=== PATIENT | female | born 1945 | race Caucasian/White ===

== ENCOUNTER → 2017-05-19 10:30 | Outpatient (CLI) | payer MEDICARE, OTHER, SELFPAY ==
--- NOTE | 2017-05-19 10:34 | STE_ITS ---
Version 3 Reason For Study: SVT Stress Results Protocol: Benedict Protocol Maximum Predicted HR: 147 bpm Target HR: 125 bpm% Max imum Predicted HR: 80 % DurationHeart Rate Stage (mm:ss) (bpm) BPCom ment Baseline 63 110/70 Benedict Protocol Stage I 3:00 10 7 118/72Lightheaded, Mild Dyspnea, No Chest Pain Benedict Protocol Stage II 2:00 11 8 146/72Moderate to Severe Dyspnea Recovery 74 122/64 Suboptimal Post Images Stress Duration: 5:00 mm:ss Maximum Stress HR: 118 bpmM ETS: 7 Baseline Echocardiogram Findings The estimated ejection fraction is 65 %. Stress Echo Wall motion Data Resting WMIntermediate WMStress WM Resting Wall Motion Wall Motion Stress No regional wall motion No regional wall motion abnormalities noted. abnormalities noted. EKG Data Normal intervals are noted. The patient exercised according to the regular Benedict protocol for a total duration of 5:00. The maximum heart rate attained was 123 beats per minute. This was 83% of maximum predicted heart rate. The patient exercised into stage 2 of the Benedict protocol. During stress, there were no ST or T wave changes noted to suggest ischemia. No clinical angina was noted. Interpretation Summary The estimated ejection fraction is 65 %. Normal adequate treadmill echocardiogram. Negative for ischemia by EKG and echocardiographic criteria. No anginal symptoms noted. Rare ventricular couplet during exercise. Poor exercise capacity for age. Appropriate blood pressure response to exercise. Patient developed moderate to severe dyspnea at peak exercise which may be an anginal equivalent. Decreased sensitivity due to less than optimal echo windows. Final LVEF of 70%. Patient tolerated procedure well. No complication. Peak pulmonary artery pressures of 37 mm Hg at peak exercise. Doppler Measurements & Calculations TR max rossy: 267.8 cm/sec TR max P.8 mmHg Ordering Physician: Mumtaz Lang Referring Physician: Sal Alvarado MD Performed By: Sung, Yola, RDCS, RVT
== END ==
PROVIDERS: Family Provider Family Medicine; PCP Family Medicine; Visit Provider Internal Medicine Cardiovascular Disease
DX: I47.1 Supraventricular tachycardia (principal); I10 Essential (primary) hypertension; R06.09 Other forms of dyspnea
CPT/HCPCS: 93017; 93350

== ENCOUNTER → 2018-09-18 | Outpatient (CLI) | payer MEDICARE, OTHER, SELFPAY ==
[2016-04-13 22:51] VITALS: BMI 27.5
--- NOTE | 2018-09-18 15:48 | RAD_ITS ---
STUDY: X-RAY CHEST REASON FOR EXAM: Female, 72 years old. Pulmonary hypertension TECHNIQUE: PA and lateral chest COMPARISON: 04/13/2016 chest radiograph and CTA 04/14/2016 FINDINGS: The lungs are clear and expanded. There is no demonstrated pleural abnormality. There is mild borderline cardiomegaly unchanged. Slight prominence of the pulmonary arteries unchanged. Stable mild ectasia of the thoracic aorta. Normal visualized thoracic spine. Normal visualized ribs, clavicles, and shoulders. There is no demonstrated abnormality of the visualized soft tissue structures of the upper abdomen. RAD/Chest PA and Lateral IMPRESSION: Stable borderline mild cardiomegaly Mild prominence of the pulmonary arteries suspicious for pulmonary artery hypertension which could be correlated with cardiac echo Stable mild ectasia of the thoracic aorta Electronically Signed: Sarath Bah, at 16:09 EDT Tel , Service support ,
== END | disposition home or self-care (01) ==
PROVIDERS: Family Provider Family Medicine; PCP Family Medicine; Referring Provider Internal Medicine Pulmonary Disease; Visit Provider Internal Medicine Pulmonary Disease
DX: I27.20 Pulmonary hypertension, unspecified (principal)
CPT/HCPCS: 71046

== ENCOUNTER 2019-01-20 10:10 | Emergency (ER) | payer MEDICARE, OTHER, SELFPAY ==
[2019-01-20 10:10] VITALS: BP 147/86; PULSE 64; RESP 18; TEMP 36.1; O2SAT 97; BMI 30.6
--- NOTE | 2019-01-20 10:44 | RAD_ITS ---
STUDY: X-RAY - PELVIS AND LEFT HIP REASON FOR EXAM: Female, 73 years old. Status post fall. Left hip pain. TECHNIQUE: 3 views of the pelvis and hip. COMPARISON: None. FINDINGS: There is a non-specific bowel gas pattern. Normal visualized soft tissue structures. There is partial sacralization of the last lumbar vertebra on the right side. Normal bilateral iliac wings, sacroiliac joints and visualized sacrum. Normal bilateral superior and inferior pubic rami. Normal pubic symphysis. Normal bilateral ischial tuberosities. Normal visualized femoral head. Normal acetabulum. Normal hip joint. RAD/HIP, UNI W/ Pelvis 2-3 Views IMPRESSION: No demonstrated acute fracture. Electronically Signed: Arpit Rodrigez MD at 11:49 EST Tel , Service support ,
--- NOTE | 2019-01-20 10:44 | RAD_ITS ---
STUDY: X-RAY - LEFT SHOULDER REASON FOR EXAM: Female, 73 years old. Status post fall. Shoulder pain. TECHNIQUE: 3 view(s) of the shoulder. COMPARISON: None. FINDINGS: Normal glenohumeral articulation. Normal acromioclavicular joint. Normal acromion. Normal humeral head and visualized proximal humerus. The soft tissue structures are unremarkable. Normal visualized pulmonary apex. RAD/Shoulder min 2 Views IMPRESSION: No demonstrated acute fracture or dislocation. Electronically Signed: Arpit Rodrigez MD at 11:51 EST Tel , Service support ,
--- NOTE | 2019-01-20 10:44 | RAD_ITS ---
STUDY: X-RAY - LEFT ELBOW REASON FOR EXAM: Female, 73 years old. Status post fall. Left elbow pain. TECHNIQUE: 3 view(s) of the elbow. COMPARISON: None. FINDINGS: Normal visualized humerus, radius and ulna. Normal radiocapitellar and ulnotrochlear articulations. The soft tissue structures are unremarkable. RAD/Elbow min 3 Views IMPRESSION: Normal x-ray examination of the elbow. Electronically Signed: Arpit Rodrigez MD at 12:00 EST Tel , Service support ,
--- NOTE | 2019-01-20 10:45 | ED.DCSUM_ITS ---
History of Present Illness Informant: Patient Onset: Yesterday Narrative: 3-year-old female presents of her fall yesterday. Patient states that yesterday she was at [place] and slipped on ice and fell. Landed on her left side. Midst to pain to her left elbow, left shoulder, left hip. States that she has been able to walk since. Pain worse with walking and sitting on the toilet. Has taken Tylenol with minimal relief. Says she may have hit her head but if she did it was very lightly. Denies any loss of consciousness. Is on a 81 mg aspirin daily. Admitted to nausea yesterday. <Chriss Wu - Last Filed: 01/20/19 12:34> Context: Gradual Onset Current Severity: Mild Maximum Severity: Moderate Worsened by: Flexion of left hip <Aura Pate - Last Filed: 01/20/19 17:03> Chief Complaint: Fall Past Medical History Past Medical History: - - osteoporosis Surgical History: - - pyeloplasty, 3 c-s,hysterectemy, tonsils Smoking Status: Never smoker - Family History Maternal Family History: Reports: No pertinent history Paternal Family History: Reports: No pertinent history <Chriss Wu - Last Filed: 01/20/19 12:34> <Aura Pate - Last Filed: 01/20/19 17:03> - Allergies and Home Meds Allergies/Adverse Reactions: Allergies alendronate sodium Adverse Reaction (Verified 01/20/19 10:12) Nausea lisinopril Adverse Reaction (Verified 01/20/19 10:12) HEADACHES/ITCHY losartan [From Cozaar] Adverse Reaction (Verified 01/20/19 10:12) sensitivity pt took Losartan years ago; does not remember exact reaction Primary Care Physician: Igor Pickering MD [Primary Care Provider] - 3-5 Days Review of Systems General: Denies: Chills, Fever Eyes: Denies: Visual changes - bilaterally ENT: Denies: Bilateral ear pain Respiratory: Denies: Dyspnea, Cough Gastrointestinal: Denies: Abdominal pain Musculoskeletal: Reports: - - Left shoulder, elbow and hip pain Neurological: Denies: Headache, Weakness, Parasthesia <Chriss Wu - Last Filed: 01/20/19 12:34> Cardiovascular: Denies: Chest pain Genitourinary: Denies: Hematuria Musculoskeletal: Reports: Extremity Pain. Denies: Neck pain Hematologic: Denies: Easy bruising, Easy bleeding <Aura Pate - Last Filed: 01/20/19 17:03> Physical Exam Vital Signs/Narrative: Vital Signs Temp Pulse Resp BP Pulse Ox 01/20/19 10:10 96.9 F L 64 18 147/86 H 97 Inital Vital Signs reviewed: Yes General: Well nourished, Well developed Head: Normocephalic, Atraumatic, - - Normocephalic, atraumatic, no hemotympanum, raccoon eyes or paiz signs. Neck: - - Midline C-spine tenderness, or step offs does have slight tenderness to the left paraspinal muscles. Cardiovascular: Regular rate, Regular rhythm Respiratory: No distress, CTA bilaterally. Negative for: Chest tenderness Abdomen: Soft, Nontender, Nondistended Extremities: - - She has tenderness over her left shoulder. Able to lift shoulder to 90 degrees but is painful. Tenderness throughout anterior aspect of shoulder. No crepitance or step-offs. Patient does have tenderness over her olecranon process. Supination pronation intact. Distal pulses intact. N eurovascularly intact distally. Patient does have tenderness to her left medial groin. Negative logroll sign. Distal pulses intact. Motor and sensation intact. No bruising or ecchymosis appreciated Skin: Normal color, No rash Neurological: Alert, Oriented x3 <Chriss Wu - Last Filed: 01/20/19 12:34> Psychological: Normal affect <Aura Pate - Last Filed: 01/20/19 17:03> Diagnostic/Tx/Re-eval - Medical Decision Making Evaluated for fall yesterday. Imaging of her shoulder, elbow and hip obtained. Offered analgesics but declined. Of elbow, hip and shoulder were unremarkable. Patient instructed to continue Tylenol for his symptoms. Instructed to follow-up with primary care provider. Patient was in agreement the plan discharged home. <Chriss Wu - Last Filed: 01/20/19 12:34> Impressions Elbow X-Ray 01/20/19 10:44 IMPRESSION: Normal x-ray examination of the elbow. Electronically Signed: Arpit Rodrigez MD at 12:00 EST Tel , Service support , Hip/Pelvis X-Ray 01/20/19 10:44 IMPRESSION: No demonstrated acute fracture. Electronically Signed: Arpit Rodrigez MD at 11:49 EST Tel , Service support , Shoulder X-Ray 01/20/19 10:44 IMPRESSION: No demonstrated acute fracture or dislocation. Electronically Signed: Arpit Rodrigez MD at 11:51 EST Tel , Service support , 01/20/19 10:44 Elbow min 3 Views [RAD] Stat Shoulder min 2 Views [RAD] Stat Xray hip [HIP, UNI W/ Pelvis 2-3 Views] [RAD] Stat - Medical Decision Making Patient seen and evaluated with resident. Patient has slip and fall on ice yesterday. She laid on her left side. She is complaining of pain to the anterior left hip. Pain is worse with any kind of hip flexion. Patient sitting upright in bed no acute distress. Head neck examination was no sign of trauma. Heart regular rate and rhythm. Lung sounds are clear. Abdomen is soft and nontender. Lower extremity examination reveals mild tenderness of the anterior left hip. No tenderness of the greater trochanter. She has pain with hip flexion but is able to do so. She has strong distal pulses and normal sensation. X-rays are obtained and reviewed. There is no evidence of acute fracture. Patient is to follow-up with her primary care physician. <Aura Pate - Last Filed: 01/20/19 17:03> ED Disposition <Chriss Wu - Last Filed: 01/20/19 12:34> <Aura Pate - Last Filed: 01/20/19 17:03> - Plan for ED Patient: Disposition: Home or Assisted Living Diagnosis: Hip pain, Fall, Shoulder contusion Instructions: FALL, Mechanical Referrals: Igor Pickering MD [Primary Care Provider] - 3-5 Days
[2019-01-20 12:46] VITALS: BP 131/71; PULSE 82; RESP 19; O2SAT 97
--- NOTE | 2019-01-20 12:46 | ED.RN ---
THIS NURSE REVIEWED D/C INSTRUCTIONS WITH PT AND VISITORS. PT VERBALIZED UNDERSTANDING OF INSTRUCTIONS. PT DENIES FURTHER NEEDS OR QUESTIONS AT THIS TIME
== END 2019-01-20 12:47 | disposition home or self-care (01) ==
PROVIDERS: Emergency Provider Emergency Medicine; Family Provider Family Medicine; PCP Family Medicine
DX: S40.012A Contusion of left shoulder, initial encounter (principal); M25.552 Pain in left hip; M25.522 Pain in left elbow; W00.0XXA Fall on same level due to ice and snow, initial encounter; Y93.9 Activity, unspecified; Y92.9 Unspecified place or not applicable; M81.0 Age-related osteoporosis without current pathological fracture; Z79.82 Long term (current) use of aspirin; Z79.899 Other long term (current) drug therapy
CPT/HCPCS: 73030; 73080; 73502; 99282

== ENCOUNTER 2019-09-12 15:54 | Emergency (ER) | payer MEDICARE, OTHER, SELFPAY ==
[2019-09-04 09:20] VITALS: BMI 31.1
[2019-09-12 15:55] VITALS: BP 183/87; PULSE 74; RESP 16; TEMP 36.5; O2SAT 97; BMI 29.2
--- NOTE | 2019-09-12 16:23 | ED.DCSUM_ITS ---
History of Present Illness Chief Complaint: Nausea/Vomiting/Diarrhea Informant: Patient, Family - Abdominal Pain/Flank Pain Onset: Yesterday Context: Gradual Onset Timing: Continuous Quality: Cramping - intermittent, worse w/ eating Location: Diffuse Current Severity: Mild Maximum Severity: Moderate Worsened by: Food Relieved by: Nothing - Nausea/Vomiting/Emesis GI Symptom: Nausea, Vomiting Quality: Nonbilious. Negative for: Blood streaks, Coffee ground, Hematemesis - Diarrhea/Melena/Hematochezia GI Symptom: Diarrhea. Negative for: Melena, Hematochezia Onset: Yesterday Stool Quality: Loose, Watery - at times. Negative for: Black, Maroon, RITA per rectum Episodes: 10 Associated Symptoms: Negative for: Dysuria, Frequency, Hematuria, Urgency Narrative: Patient malaised along with this, lightheaded with standing at times, no syncope. Intermittent cramping that is worse with eating. No history of GERD. No fevers or chills. No recent travel or camping. She drinks city water not well water. She has had no recent antibiotics for anything or new medications, she takes no prescriptions at home on a daily basis. No known sick contacts with the symptoms. She currently is on a fluid restriction because of hyponatremia at 125 about a week ago according to her, and her doctor sent her in for testing and fluids to have her sodium and her exam checked. - Past Medical History (1) Anemia Status: Chronic (2) Pulmonary hypertension Status: Chronic (3) SVT (supraventricular tachycardia) Status: Chronic (4) Asthma Status: Chronic (5) Essential hypertension Status: Chronic (6) FELIPE on CPAP Status: Chronic Past Medical History - Allergies and Home Meds Allergies/Adverse Reactions: Allergies alendronate sodium Adverse Reaction (Verified 09/12/19 15:57) Nausea lisinopril Adverse Reaction (Verified 09/12/19 15:57) HEADACHES/ITCHY losartan [From Cozaar] Adverse Reaction (Verified 09/12/19 15:57) sensitivity pt took Losartan years ago; does not remember exact reaction Primary Care Physician: Igor Pickering MD [Primary Care Provider] - Surgical History: - - pyeloplasty, 3 c-s,hysterectemy, tonsils Smoking Status: Never smoker - Family History Maternal Family History: Family History (Last Reviewed 07/01/20 @ 11:02 by Rosibel Cardona) Mother Diabetes CVA (cerebral vascular accident) Alzheimer disease Grandfather CVA (cerebral vascular accident) Sister Cancer Grandmother Cancer Family History: Reports: No pertinent history Paternal Family History: Family History (Last Reviewed 09/04/19 @ 11:02 by Rosibel Cardona) Mother Diabetes CVA (cerebral vascular accident) Alzheimer disease Grandfather CVA (cerebral vascular accident) Sister Cancer Grandmother Cancer Family History: Reports: No pertinent history Review of Systems General: Reports: Malaise. Denies: Chills, Fever, Sweats Eyes: Denies: Visual changes - bilaterally, Diplopia ENT: Denies: Bilateral ear pain, Rhinorrhea, Sore throat Cardiovascular: Denies: Chest pain, Palpitations Respiratory: Denies: Dyspnea, Cough, Dyspnea on exertion Gastrointestinal: Reports: Abdominal pain, Nausea, Vomiting, Diarrhea. Denies: Melena, Hematochezia Genitourinary: Denies: Dysuria, Hematuria, Frequency Musculoskeletal: Denies: Back pain, Swelling, Extremity Pain Skin: Denies: Rash, Wounds Neurological: Denies: Headache, Weakness, Numbness Physical Exam Vital Signs/Narrative: Vital Signs Temp Pulse Resp BP Pulse Ox 09/12/19 15:55 97.7 F L 74 16 183/87 H 97 Inital Vital Signs reviewed: Yes General: Well nourished, Well developed, No Acute Distress Head: Normocephalic, Atraumatic Eyes: Perrl, EOMI ENT: Moist mucous membranes, No rhinorrhea Neck: Supple, Nontender Cardiovascular: Regular rate, Regular rhythm, No murmurs. Negative for: Tachycardia Respiratory: No distress, CTA bilaterally, Chest nontender Abdomen: Soft, Nontender, Nondistended, Normal bowel sounds, No masses Back: Nontender, Normal Inspection. Negative for: CVA tenderness Extremities: Nontender, No edema. Negative for: Calf Tenderness Skin: Normal color, No rash, No Trauma Neurological: Alert, Oriented x3, Cranial nerves II-XII grossly intact, Normal Strength, Normal Sensation Psychological: Normal affect, Normal Mood Diagnostic/Tx/Re-eval Laboratory Results 09/12/19 09/12/19 16:47 16:47 WBC 5.6 RBC 4.02 L Hgb 12.8 Hct 36.8 L MCV 91.5 MCH 31.8 MCHC 34.8 RDW Std Deviation 47.1 H RDW Coeff of Juvencio 13.9 Plt Count 221 MPV 10.3 Neut % (Auto) Not Reportable Absolute Neuts (auto) 4.5 Absolute Lymphs (auto) 0.67 L Total Counted 100 Neutrophils % (Manual) 77 H Band Neutrophils % 3 Lymphocytes % (Manual) 12 L Monocytes % (Manual) 4 Metamyelocytes % 2 H Myelocytes % 2 H Diff Path Review May foll Platelet Estimate ADEQUATE RBC Morphology N CHROM Anisocytosis RARE Macrocytosis RARE Sodium 129 L Potassium 4.3 Chloride 98 Carbon Dioxide 24.0 Anion Gap 7 BUN 11 Creatinine 0.86 Estim Creat Clear Calc 44.70 Est GFR (MDRD) Af Amer 82 Est GFR (MDRD) Non-Af 68 BUN/Creatinine Ratio 12.7 Glucose 108 H Calcium 9.7 Total Bilirubin 0.70 AST 25 ALT 25 Alkaline Phosphatase 102 Total Protein 8.1 Albumin 4.1 Globulin 4.0 Albumin/Globulin Ratio 1.0 - Medical Decision Making Patient was given some gentle IV fluids while we waited for labs, they reassuringly show a sodium that is higher than she is used to at 129. She feels well, I offered admission but she states that she is fine to go home. I reviewed the CBC above, shows a low normal white blood count of 5.6 but there are immature cells. I discussed the possibilities with her, including the infection that she may or may not have causing her vomiting and diarrhea, or demargination for some other reason, or they could be some indicator that she could have a myelodysplastic syndrome or something similar. This will need to be followed up on, after her symptoms hopefully resolve soon. I am calling whoever is on-call for Dr. Pickering to discuss with them, and the patient can follow-up as an outpatient. She and family are comfortable with this overall plan and understand all that. ED Disposition - Plan for ED Patient: Disposition: Home or Assisted Living Diagnosis: Nausea, vomiting and diarrhea, Chronic hyponatremia Instructions: ED Food Poison Or Gastroenteritis, ED Diet for Vomiting or Diarrhea Adult Prescriptions: Ondansetron [Zofran Odt] 8 mg PO Q8H PRN PRN #10 tab PRN Reason: Nausea Transmission Status: Pending to [id number] Referrals: Igor Pickering MD [Primary Care Provider] - 3-5 Days if not improving
[2019-09-12] MEDS: Ondansetron 4 MG/2 ML Vial IV (16:53)
[2019-09-12] MEDS: 0.9% Normal Saline 1,000 ML 125 ML IV (16:53)
[2019-09-12 17:13] LABS: Hematocrit 36.8 % (37-47); Hemoglobin 12.8 g/dL (12.0-15.0); Mean Corp Hgb Conc 34.8 g/dL (32-36); Mean Corpuscular Hgb 31.8 pg (27.0-32.0); Mean Corpuscular Volume 91.5 fL (81-99); Mean Platelet Vol. 10.3 fl (6.2-12.0); POSITIVE COUNT YES; POSITIVE MORPHOLOGY YES; Platelet Count 221 K/mm3 (150-450); RBC Distribution Width CV 13.9 % (11.6-14.6); RBC Distribution Width SD 47.1 fl (35.1-43.9); Red Blood Count 4.02 M/mm3 (4.2-5.4); White Blood Count 5.6 K/mm3 (4.4-11.0)
[2019-09-12 17:33] LABS: AST(SGOT) 25 U/L (15-37); Alanine Aminotransfer ALT/SGPT 25 U/L (13-56); Albumin, Serum 4.1 g/dL (3.2-5.0); Alkaline Phosphatase 102 U/L (45-117); Anion Gap 7 (5-15); BUN 11 mg/dL (7-18); BUN/Creat Ratio 12.7 RATIO (10-20); Calcium,Total 9.7 mg/dL (8.5-10.1); Chloride 98 mmol/L (98-107); Creatinine, Serum 0.86 mg/dL (0.55-1.02); EST Glomerular Filtration Rate 68 mL/min (>60); Est Glom Filt Rate - Afr Amer 82 mL/min (>60); Glucose 108 mg/dL (74-106); Potassium 4.3 mmol/L (3.5-5.1); Protein, Total 8.1 g/dL (6.4-8.2); Sodium Level 129 mmol/L (136-145)
[2019-09-12 17:44] LABS: Differential Indicated MANUAL DIFF
[2019-09-12 17:50] LABS: Lymphocyte 12 % (19-41); Metamyelocyte 2 % (0-1); Monocyte 4 % (0-10); Myelocyte 2 (0-0); Neutrophil-Band 3 % (0-5); Neutrophil-Segmented 77 % (47-70); Total Cells Counted 100 (MANUAL DIFF)
[2019-09-12 17:51] LABS: Platelet Estimate ADEQUATE (ADEQ)
[2019-09-12 17:52] LABS: Anisocytosis RARE; Macrocytosis RARE; Red Cell Morphology N CHROM NORMAL (NORM C&C)
[2019-09-12 17:53] LABS: Absolute Lymphocyte Count 0.67 X10^3/uL (0.83-4.51); Absolute Neutrophil Count 4.5 X10^3/uL (2.0-7.7)
[2019-09-12 18:49] VITALS: BP 167/89; PULSE 81; RESP 16; O2SAT 99
[2019-09-16 09:55] LABS: Pathologist Review Reviewed
== END 2019-09-12 18:51 | disposition home or self-care (01) ==
PROVIDERS: Emergency Provider Emergency Medicine; PCP Family Medicine
DX: R11.2 Nausea with vomiting, unspecified (principal); R19.7 Diarrhea, unspecified; E87.1 Hypo-osmolality and hyponatremia; R10.9 Unspecified abdominal pain; I27.20 Pulmonary hypertension, unspecified; I47.1 Supraventricular tachycardia; I10 Essential (primary) hypertension; J45.909 Unspecified asthma, uncomplicated; G47.33 Obstructive sleep apnea (adult) (pediatric); Z86.2 Personal history of diseases of the blood and blood-forming organs and certain disorders involving the immune mechanism; Z79.82 Long term (current) use of aspirin; Z79.899 Other long term (current) drug therapy
CPT/HCPCS: 80053; 85025; 96361; 96374; 99283; J7030; A4216; J2405

== ENCOUNTER → 2020-01-14 14:00 | Outpatient (CLI) | payer MEDICARE, OTHER, SELFPAY ==
[2020-01-14 14:59] LABS: Mucous, Urine 0 SEEN /hpf (<or=2+)
[2020-01-14 15:14] LABS: Color, Urine Yellow (Yellow); Glucose, Dipstick Normal (Normal); Ketone-Dipstick Negative (Negative); Leukocyte Esterase-Dipstick 500 /ul (Negative); Nitrite-Dipstick Negative (Negative); Occult Blood-Urine 10 /ul (Negative); Protein-Dipstick Negative (Negative); Urine Bilirubin Dipstick Negative (Negative); Urine Clarity Sl. Cloudy (Clear); Urine Urobilinogen Normal (Normal)
[2020-01-14 15:23] LABS: Bacteria 1+ /hpf (None Seen); Red Blood Cells-Urine 0-5 SEEN /hpf (0-5); Squamous Epithelial Cells - UA 0-5 SEEN /hpf (5-10); White Blood Cells 25-50 SEEN /hpf (0-5)
== END ==
PROVIDERS: PCP Family Medicine; Referring Provider Nurse Practitioner Adult Health; Visit Provider Nurse Practitioner Adult Health
DX: R31.29 Other microscopic hematuria (principal)
CPT/HCPCS: 81001

== ENCOUNTER 2020-05-29 15:10 | Outpatient (RCR) | payer MEDICARE, OTHER, SELFPAY | END 2020-08-11 23:59 | LOC: IMMUN 15:10 | PROVIDERS: PCP Family Medicine; Visit Provider Family Medicine | DX: Z23 Encounter for immunization (principal) | CPT/HCPCS: 0001A; 0002A; 91300 ==

== ENCOUNTER → 2021-11-16 | Outpatient (CLI) | payer MEDICARE, OTHER, SELFPAY ==
--- NOTE | 2021-11-16 08:44 | STRESSREP_ITS ---
Stress Test Report Date: 11-16-2021 Procedure: Exercise tolerance test/imaging study Indications: Chest pain; syncope; PSVT Consent: Per the patient Procedure: The patient exercised on a Benedict protocol for 3 minutes and 31 seconds completing Stage I and 31 seconds of Stage II achieving a peak heart rate of 141 bpm (99% predicted maximal heart rate) with a peak blood pressure 194/80 mmHg and a peak MET capacity of 5 METs. The baseline ECG demonstrated normal sinus rhythm; poor R wave progression. The peak exercise ECG demonstrated somatic/motion artifact with no obvious ECG changes. There were no cardiac dysrhythmias pretest, during exercise, or recovery. The functional capacity was considered fair. There was no complaint of chest discomfort during exercise or recovery. The examination was discontinued secondary to dyspnea, leg fatigue, weakness. Impression: 1. Technically adequate (percent predicted maximal heart rate greater than 85%) exercise tolerance test 2. Peak exercise ECG with somatic/motion artifact with no obvious ECG changes 3. There were no cardiac dysrhythmias pretest, during exercise, or recovery 4. Nuclear images pending Myocardial perfusion imaging study: Technique: The patient was injected with 11.8 mCi of technetium 99m Cardiolite and subsequently rest SPECT Cardiolite nuclear imaging was obtained in the horizontal long, vertical long, and short axis views. The patient exercised on a Benedict protocol for 3 minutes and 31 seconds completing Stage I and 31 seconds of Stage II achieving a peak heart rate of 141 bpm (99% predicted maximal heart rate) with a peak blood pressure 194/80 mmHg and a peak MET capacity of 5 METs. The patient was injected with 34.1 mCi of technetium 99m Cardiolite and subsequ ently stress SPECT Cardiolite nuclear imaging was obtained in the horizontal long, vertical long, and short axis views. A gated Cardiolite study at peak stress was obtained. Interpretation: Rest and stress SPECT Cardiolite nuclear imaging status post realignment, normalization, and attenuation correction, demonstrates the appearance of relative uniform tracer uptake and myocardial perfusion appearing within normal limits. There is end systolic thickening and brightening. The gated Cardiolite study demonstrates myocardial thickening and inward wall motion. The reported LVEF is 81%. Impression: 1. Rest and stress SPECT Cardiolite nuclear imaging demonstrate relative uniform tracer uptake and myocardial perfusion appearing within normal limits. 2. The gated Cardiolite study reports an LVEF of 81%. This note was generated with Dragon dictation software. It may contain incorrect words, spelling, and punctuation that were not noted in checking the note before signing.
== END | disposition home or self-care (01) ==
LOC: CVS 06:37
PROVIDERS: PCP Family Medicine; Referring Provider Internal Medicine Cardiovascular Disease; Visit Provider Internal Medicine Cardiovascular Disease
DX: R07.9 Chest pain, unspecified (principal)
CPT/HCPCS: 78452; 93017; A9500; A4216

== ENCOUNTER 2022-01-27 16:15 | Emergency (ER) | payer MEDICARE, OTHER, SELFPAY ==
[2022-01-27 16:16] VITALS: BP 145/71; PULSE 76; RESP 16; TEMP 36.8; O2SAT 100; BMI 32.9
--- NOTE | 2022-01-27 16:26 | CT_ITS ---
INDICATION: Trauma/FALL EXAMINATION: CT BRAIN - CT Head or Brain W/O Contrast Injection TECHNIQUE: Multiple axial images were obtained of the head without intravenous contrast. A radiation dose optimization technique was used for this scan. IV Contrast dosage and agent: None. RADIATION DOSAGE (If Supplied By Facility): CTDIvol = ( 44.99 ) mGy, DLP = ( 812.98 ) mGycm COMPARISON: 04/13/1969 FINDINGS: HEMISPHERES: 1. The cerebral parenchyma, ventricular system, subarachnoid spaces have normal configuration and density. There is a normal gyral pattern. There is normal johnson/white differentiation. No midline shift.. 2. Minimal involutional changes and stable chronic microvascular deep white matter changes. 3. No intraparenchymal mass, hemorrhage, or acute territorial infarct. CEREBELLUM - BRAINSTEM: The cerebellum, brainstem, basilar and suprasellar cisterns have normal appearance. No Chiari malformation. PITUITARY: Infundibulum and pituitary have normal configuration. Midline structures appear normal. CSF SPACES: Appropriate for age. No hydrocephalus. Basal cisterns are patent. VESSELS: 1. Moderate to extensive calcifications involving the cavernous carotid vessels bilaterally. 2. No hyperdense vascular signs noted.. ORBITS AND PARANASAL SINUSES: 1. Normal appearance of the bony orbits. Normal appearance of the globes and retrobulbar soft tissues.. 2. Paranasal sinuses are clear. BONY ELEMENTS: Bony elements of the cranial vault, facial skeleton and skull base have normal appearance. SCALP AND SOFT TISSUES: Normal appearance of the soft tissues of the scalp and the visualized face OTHER: None ASPECTS Score for Acute Strokes: 10 CT/Brain/Head without Contrast IMPRESSION: 1. Stable exam 2. No intracranial evidence of acute traumatic injury. 3. Mild chronic microvascular deep white matter disease and minimal involutional change. 4. No intracranial mass, hemorrhage or acute territorial infarct. 5. No cranial facial fracture. 6. No radiographically significant sinus disease.. Electronically Signed: Zay Calero MD at 17:17 EST ,
--- NOTE | 2022-01-27 16:26 | CT_ITS ---
INDICATION: pain/FALL EXAMINATION: CT CERVICAL SPINE - CT Spine Cervical W/O Contrast Injection TECHNIQUE: Helically acquired images were obtained of the cervical spine. 2D reformatted images were reviewed. A radiation dose optimization technique was used for this scan. IV Contrast dosage and agent: None. COMPARISON: None. FINDINGS: VERTEBRAE: No fracture or traumatic subluxation. No discrete lytic or blastic abnormality. Normal alignment. Normal craniocervical junction and cervicothoracic junction. Normal appearance of the odontoid process. DISCS and SPINAL CANAL: Disc spaces are maintained without evidence of disc herniation or canal stenosis. Multilevel facet arthropathy throughout the cervical spine visualized neural foramina however have normal appearance. No critical canal stenosis. NECK SOFT TISSUES: No prevertebral soft tissue swelling. There is no cervical adenopathy. LUNG APICES: Clear. CT/Spine Cervical without Contras IMPRESSION: 1. No evidence of acute cervical spinal fracture or spondylolisthesis. No acutely acquired canal stenosis. 2. Multilevel facet arthrosis, no evidence however of foraminal narrowing. Electronically Signed: Zay Calero MD at 17:19 EST ,
--- NOTE | 2022-01-27 16:28 | EDS_ITS ---
HPI History of Present Illness Chief Complaint: Head Injury Associated Symptoms Length of loss of consciousness: 0 Narrative Narrative: 76-year-old female who denies significant past medical history presents with mechanical fall and injury to her head and neck. She states that she was walking outside in the garage and tripped over the concrete and fell forward. She did not brace her fall with her hands. Her glasses cut the bridge of her nose and she sustained a laceration to her left forehead. She has some diffuse neck pain. There is no reported loss of consciousness. She takes a baby aspirin but no other blood thinners. This happened an hour prior to arrival. 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 Additionally, she states that her family had to convince her to come to the emergency department. She denies any pain on the bridge of her nose but does have pain on her left forehead where her laceration is. [facility] Medical History (Updated 01/27/22 @ 18:27 by Juvenal Hernandez MD) Anemia Asthma Diverticulosis Essential hypertension Orthostatic hypotension FELIPE on CPAP Pulmonary hypertension SVT (supraventricular tachycardia) Syncope Home Medications albuterol sulfate 90 mcg/actuation aerosol inhaler 2 puff inhalation Q6H PRN PRN Shortness Of Breath 01/27/15 [History Last Taken Unknown] aspirin 81 mg chewable tablet 81 mg PO DAILY@0800 01/27/15 [History Last Taken 03/24/16] calcium carbonate 600 mg calcium (1,500 mg) tablet 600 mg PO BID 01/27/15 [History Last Taken 04/12/16] cholecalciferol (vitamin D3) 25 mcg (1,000 unit) tablet 3,000 unit PO DAILY 01/27/15 [History Last Taken 04/12/16] polyvinyl alcohol-povidone (PF) 1.4 %-0.6 % eye drops in a dropperette 1 ea EACH EYE DAILY PRN dry eyes 01/27/15 [History Last Taken Unknown] acetaminophen 325 mg tablet 650 mg PO Q6H PRN PRN Mild Pain (scale 0-3)/T>100.7 #0 tabs 04/14/16 [Rx Last Taken Unknown] docusate sodium 100 mg capsule 100 mg PO BID PRN Constipation 01/20/19 [History Last Taken Unknown] multivitamin-ferrous fumarate-folic acid 18 mg-400 mcg tablet 1 ea PO DAILY 01/20/19 [History Last Taken Unknown] amlodipine 5 mg tablet 2.5 mg PO DAILY 03/05/19 [History Last Taken Unknown] atenolol 50 mg tablet 50 mg PO DAILY 03/05/19 [History Last Taken Unknown] venlafaxine 150 mg tablet,extended release 24 hr 150 mg PO DAILY 09/15/21 [History Last Taken Unknown] Allergy/AdvReac Type Severity Reaction Status Date / Time alendronate sodium AdvReac Nausea Verified 01/27/22 16:16 lisinopril AdvReac HEADACHES/I Verified 01/27/22 16:16 TCHY losartan [From Cozaar] AdvReac sensitivity Verified 01/27/22 16:16 Family History Mother Diabetes CVA (cerebral vascular accident) Alzheimer disease Grandfather CVA (cerebral vascular accident) Sister Cancer Breast Grandmother Cancer Ovarian Surgical History History of appendectomy History of bilateral cataract extraction History of breast biopsy History of section History of tonsillectomy History of total hysterectomy pyeloplasty Social History Smoking Status: Never smoker alcohol intake: never substance use type: does not use caffeine: No ROS ROS ED ROS Narrative Constitutional: No fever, no chills. HEENT: No sore throat. Minimal diffuse neck pain. No loss of vision. No rhinorrhea. Laceration/abrasion to left forehead, laceration to bridge of nose, abrasion to left chin Cardiovascular: No chest pain. No palpitations. No pedal edema. Respiratory: No cough, no shortness of breath. Abdominal: No abdominal pain. No nausea. No vomiting. Genitourinary: No dysuria. No hematuria. Musculoskeletal: No myalgias. No arthralgias. Neurologic: No headaches. No dizziness. No lightheadedness. No loss of consciousness. Skin: No rash. No change in color. Psychiatric: No depression. No anxiety. EXAM Physical Exam Narrative Exam Narrative: Afebrile. Vital signs noted. HEENT: Normocephalic. Positive bandaged left forehead laceration above left eyebrow PERRL, EOMI. Neck soft and supple. No point tenderness or step off. Full range of motion. Positive laceration with bandage to bridge of nose. Small abrasion to left cheek. Cardiovascular: Regular rate and rhythm. No murmurs, rubs, or gallops appreciated. Respiratory: No tachypnea. Lungs clear to auscultation bilaterally. Gastrointestinal: Abdomen soft, nontender, with normoactive bowel sounds. No rebound or guarding. Neurological: Awake. Alert. Nonfocal, nonlateralizing. Skin: No rash. Normal color. No pallor. Musculoskeletal: No pedal edema. Full range of motion extremities. Minimal tenderness to palpation left hand. Able to oppose thumb. Const Vital Signs: 01/27/22 16:16 01/27/22 16:20 01/27/22 17:35 Temperature 98.2 F Temperature Source Temporal Pulse Rate 76 Respiratory Rate 16 Respiratory Effort Normal Non-Labored Normal Non-Labored Respiratory Depth Normal Respiratory Pattern Normal Blood Pressure 145/71 H Blood Pressure Mean 95 Pulse Ox 100 Oxygen Delivery Method Room Air Room Air PROC Procedures Lacerations Left forehead laceration: Length: 0.43 in Depth: Skin Shape: Linear Prep: Sterile Conditions Laceration repair: Lidocaine (1%) and Local Number of Sutures/Jay: 3 Suture Information: Ethilon, Simple and 5-0 Comment: Patient tolerated procedure well MDM MDM MDM Narrative Medical decision making narrative: As the patient is unsure of her last tetanus immunization, she will get a Boostrix shot. Her wounds will be cleansed for further evaluation to see if they are amenable to suturing or some other type of closure. I do not feel x- ray of the left hand is indicated. However, given her age CT of the brain and C-spine were obtained. CT of the brain shows no intracranial hemorrhage, no cranial facial fracture. CT of the C-spine shows degenerative changes, but no acute fracture. Her wounds were cleansed. She was given a tetanus immunization. See procedure note for details on closure of the left forehead laceration. She will have the sutures removed in 5 days. She will take [id number] analgesics. I feel she be discharged safely home. Return instructions reviewed. Disposition is discharged home in improved and stable condition. Radiography Diagnostic Testing: Clinical Impression(s) from Imaging Studies Brain CT 01/27/22 16:26 IMPRESSION: 1. Stable exam 2. No intracranial evidence of acute traumatic injury. 3. Mild chronic microvascular deep white matter disease and minimal involutional change. 4. No intracranial mass, hemorrhage or acute territorial infarct. 5. No cranial facial fracture. 6. No radiographically significant sinus disease.. Electronically Signed: Zay Calero MD at 17:17 EST , Cervical Spine CT 01/27/22 16:26 IMPRESSION: 1. No evidence of acute cervical spinal fracture or spondylolisthesis. No acutely acquired canal stenosis. 2. Multilevel facet arthrosis, no evidence however of foraminal narrowing. Electronically Signed: Zay Calero MD at 17:19 EST , Discharge Plan Triage Chief Complaint: Head Injury ED Provider: Juvenal Hernandez Dx/Rx/DC Orders Clinical Impression: Fall, Closed head injury, Forehead laceration, Abrasion of nose, Abrasion of chin, Cervical strain Instructions: ED Mechanical Fall, ED Head Injury (Adult), ED Laceration: All Closures, ED Neck Sprain or Strain Prescriptions: No Action amlodipine 5 mg tablet 2.5 mg PO DAILY atenolol 50 mg tablet 50 mg PO DAILY venlafaxine 150 mg tablet extended release 24hr 150 mg PO DAILY calcium carbonate 600 MG tablet 600 mg PO BID Label Comments: SUPPLEMENT aspirin 81 MG tablet,chewable 81 mg PO DAILY@0800 Label Comments: heart health - has not restarted since OR last week albuterol sulfate 1 PUFF inhaler 2 puff inhalation Q6H PRN PRN (Reason: Shortness Of Breath) Label Comments: breathing polyvinyl alcohol-povidon(PF) 1 EACH dropperette 1 ea EACH EYE DAILY PRN (Reason: dry eyes) Label Comments: DRY EYES cholecalciferol (vitamin D3) 1,000 UNIT tablet 3,000 unit PO DAILY Label Comments: supplement acetaminophen 325 MG tablet 650 mg PO Q6H PRN PRN (Reason: Mild Pain (scale 0-3)/T>100.7) Qty: 0 0RF [id number]-[id number] acid 1 EACH tablet 1 ea PO DAILY docusate sodium 100 MG capsule 100 mg PO BID PRN (Reason: Constipation) Label Comments: prevent constipation Primary Care Provider: Igor Pickering Referrals: Igor Pickering MD [Primary Care Provider] - 5 Days for suture removal Activity Restrictions/Additional Instructions: Have the 3 sutures in your left forehead removed in 5 days Disposition Disposition: Home, Self Care
[2022-01-27] MEDS: Diphth,Pertuss(Acell),Tet Vac 0.5 ML Vial IM (17:29)
[2022-01-27] MEDS: Lidocaine 1% (20 ml mdv) 20 ML Vial INFILT (18:35)
== END 2022-01-27 18:40 | disposition home or self-care (01) ==
PROVIDERS: Emergency Provider Emergency Medicine; PCP Family Medicine; Visit Provider Emergency Medicine
DX: S01.81XA Laceration without foreign body of other part of head, initial encounter (principal); S16.1XXA Strain of muscle, fascia and tendon at neck level, initial encounter; I10 Essential (primary) hypertension; W01.0XXA Fall on same level from slipping, tripping and stumbling without subsequent striking against object, initial encounter; Z23 Encounter for immunization
CPT/HCPCS: 12011; 70450; 72125; 90715; 96372; 99283

== ENCOUNTER 2024-01-19 21:15 | Inpatient (IN) | payer MEDICARE, OTHER, SELFPAY ==
[2024-01-19 21:16] VITALS: BP 114/81; PULSE 77; RESP 18; TEMP 36.5; O2SAT 95; BMI 32.3
--- NOTE | 2024-01-19 21:42 | EKG12_ITS ---
Test Reason : DYSRHYTHMIA Blood Pressure : */* mmHG Vent. Rate : 72 BPM Atrial Rate : 72 BPM P-R Int : 188 ms QRS Dur : 78 ms QT Int : 390 ms P-R-T Axes : 57 -20 16 degrees QTcB Int : 427 ms Normal sinus rhythm Minimal voltage criteria for LVH, may be normal variant ( R in aVL ) Borderline ECG Confirmed by JAY GRISSOM, OLU ([id number]), editor department KELLI GUERRERO ([id number]) on 01/23/2024 8:05:45 A M Referred By: Confirmed By: OLU THOMPSON MD
--- NOTE | 2024-01-19 21:43 | CT_ITS ---
INDICATION: Injury/Pain -- Headache, amnesia and head trauma EXAMINATION: CT BRAIN - CT Head or Brain W/O Contrast Injection TECHNIQUE: Multiple axial images were obtained of the head without intravenous contrast. The protocol utilizes one or more of the following dose reduction techniques: automated exposure control, adjustment of mA and/or kV according to patient size,and/or use of iterative reconstruction technique. IV Contrast dosage and agent: None. RADIATION DOSAGE (If Supplied By Facility): CTDIvol = ( 44.99 ) mGy, DLP = ( 779.23 ) mGycm COMPARISON: Prior study dated: 01/27/2022 FINDINGS: BRAIN: No acute bleed. No edema. Decreased attenuation in the periventricular white matter bilaterally. Ortega-white matter differentiation is maintained. Arterial calcifications. VENTRICLES AND SULCI: The ventricles are not dilated. The sulci are prominent. EXTRA-AXIAL: No hemorrhage, fluid collection, or mass. CALVARIUM / SKULL BASE: Unremarkable. FACE/SINUSES: Unremarkable. SOFT TISSUES: Unremarkable. CT/Brain/Head without Contrast IMPRESSION: No acute abnormality. Chronic microvascular ischemic disease. Electronically Signed: Yola Vargas MD at 23:15 [facility] ,
[2024-01-19] MEDS: Morphine 4 MG/ML Syringe IV (22:01)
[2024-01-19] MEDS: Ondansetron 4 MG/2 ML Vial IV (22:01)
[2024-01-19 22:13] LABS: Absolute Lymphocyte Count 0.28 X10^3/uL (0.83-4.51); Absolute Neutrophil Count 2.5 X10^3/uL (2.0-7.7); Hematocrit 30.4 % (37-47); Hemoglobin 10.4 g/dL (12.0-15.0); Lymphocyte # 0.28 X10^3/ul (0.83-4.51); Lymphocyte % 8.3 % (19-41); Mean Corp Hgb Conc 34.2 g/dL (32-36); Mean Corpuscular Hgb 30.9 pg (27.0-32.0); Mean Corpuscular Volume 90.2 fL (81-99); Mean Platelet Vol. 11.2 fl (6.2-12.0); Monocyte# 0.54 X10^3/uL; Monocyte% 15.9 % (0-10); NRBC Flagged by Analyzer 0 % (0-5); Neutrophil # 2.51 X10^3/uL (2.7-7.7); POSITIVE DIFFERENTIAL YES; Platelet Count 116 K/mm3 (150-450); RBC Distribution Width CV 14.3 % (11.6-14.6); RBC Distribution Width SD 47.1 fl (35.1-43.9); Red Blood Count 3.37 M/mm3 (4.2-5.4); White Blood Count 3.4 K/mm3 (4.4-11.0)
--- NOTE | 2024-01-19 22:16 | RAD_ITS ---
INDICATION: Injury/Pain EXAMINATION/TECHNIQUE: X-RAY - XR Spine Lumbar 2 or 3 Views COMPARISON: No relevant prior comparison study available FINDINGS: L2 anterior wedge compression fracture with approximately 50% vertebral body height loss appears acute. The other vertebral bodies are normal in height. No subluxation. Mild curvature convex left. No paravertebral soft tissue mass identified. RAD/Lumbar Spine 2 or 3 Views IMPRESSION: Acute L2 vertebral body compression fracture. Electronically Signed: Yola Vargas MD at 23:22 EST ,
--- NOTE | 2024-01-19 22:16 | RAD_ITS ---
INDICATION: Injury/Pain EXAMINATION/TECHNIQUE: X-RAY - XR Hip Unilateral with Pelvis when performed; 2-3 Views COMPARISON: No relevant prior comparison study available FINDINGS: No fracture demonstrated. The femoral heads are normal contour. No dislocation at the hips. The sacrum is partially obscured by stool. RAD/HIP, UNI W/ Pelvis 2-3 Views IMPRESSION: No evidence of fracture. Electronically Signed: Yola Vargas MD at 23:19 EST ,
--- NOTE | 2024-01-19 22:27 | EDS_ITS ---
HPI History of Present Illness Chief Complaint: Fall Detail of Chief Complaint: Fall from bed for subsequent falls Informant: patient and family Onset/Context/Timing Onset: Today Mechanism/Context: Blunt Injury and Fall Location of pain/injuries: Right hip and - (Lower back) Quality of Pain: Dull and Aching Location: Hip and back Current Severity: Mild Maximum Severity: Severe Worsened by: Palpation and movement Relieved by: Nothing Associated Symptoms Associated Symptoms: Positive for Inability to ambulate, Loss of consciousness and Amnesia; Negative for Parasthesias, Weakness or Loss of function Narrative Narrative: Patient is an 78-year-old woman. She fell out a bed this morning. She is uncertain how she fell out of bed. She states she normal sleeps in the middle of the bed. She has had 4 falls since. She does not have recall she is amnestic. This is abnormal according to the daughters in the room. She does complain of headache. She denies double vision blurred vision loss of vision. Eyes ringers decreased hearing. Denies trouble speech or swallowing. Denies neck pain. She denies paresthesia, anesthesia or motor weakness. She denies bowel or bladder dysfunction. She denies radicular pain. She denies abdominal pain. She complains of pain in her right hip region over the greater trochanter. She also complains of lower dorsal upper lumbar pain. Patient Nuys dysuria, frequency, urgency or hematuria Patient Nuys abdominal pain. Patient denies black or maroon-colored stool. Prior similar symptoms: No Recent Illness/Hospitalization: No [facility] Medical History (Updated 01/20/24 @ 00:[address] Pan Saxena MD) HTN (hypertension) Diverticulosis Asthma FELIPE on CPAP Pulmonary hypertension SVT (supraventricular tachycardia) Essential hypertension Anemia Orthostatic hypotension Syncope Home Medications ?Medication ?Instructions ?Recorded ?Last Taken ?Type albuterol sulfate 90 mcg/actuation 2 puff inhalation Q6H PRN PRN 01/27/15 Unknown History aerosol inhaler Shortness Of Breath aspirin 81 mg chewable tablet 81 mg PO DAILY@0800 01/27/15 03/24/16 History calcium carbonate 600 mg PO BID 01/27/15 04/12/16 History cholecalciferol (vitamin D3) 25 3,000 unit PO DAILY 01/27/15 04/12/16 History mcg (1,000 unit) tablet polyvinyl alcohol-povidone (PF) 1 ea EACH EYE DAILY PRN dry eyes 01/27/15 Unknown History 1.4 %-0.6 % eye drops in a dropperette acetaminophen 325 mg tablet 650 mg (2 x 325 mg) PO Q6H PRN PRN 04/14/16 Unknown Rx Mild Pain (scale 0-3)/T>100.7 #0 tabs docusate sodium 100 mg capsule 100 mg PO BID PRN Constipation 01/20/19 Unknown History multivitamin-ferrous 1 ea PO DAILY 01/20/19 Unknown History fumarate-folic acid 18 mg-400 mcg tablet amlodipine 5 mg tablet 2.5 mg PO DAILY 03/05/19 Unknown History atenolol 50 mg tablet 50 mg PO DAILY 03/05/19 Unknown History venlafaxine 150 mg tablet,extended 150 mg PO DAILY 09/15/21 Unknown History release 24 hr Allergy/AdvReac Type Severity Reaction Status Date / Time alendronate sodium AdvReac Nausea Verified 01/27/22 16:16 lisinopril AdvReac HEADACHES/I Verified 01/27/22 16:16 TCHY losartan (From Cozaar) AdvReac sensitivity Verified 01/27/22 16:16 Family History Mother Diabetes CVA (cerebral vascular accident) Alzheimer disease Grandfather CVA (cerebral vascular accident) Sister Cancer Breast Grandmother Cancer Ovarian Surgical History History of bilateral cataract extraction pyeloplasty History of breast biopsy History of tonsillectomy History of total hysterectomy History of section History of appendectomy Social History Smoking Status: Never smoker alcohol intake: never substance use type: does not use caffeine: No ROS ROS ED Constitutional Constitutional ED: Denies chills, fever(s), subjective or sweats Eyes Eyes: Denies blurry vision or change in vision ENT ENT ED: Denies ear pain, rhinorrhea or sore throat Cardiovascular Cardiovascular: Denies chest pain or palpitations Respiratory/Chest Respiratory/Chest: Denies cough, dyspnea or dyspnea on exertion Gastrointestinal Gastrointestinal: Denies abdominal pain, nausea or vomiting Genitourinary Genitourinary ED: Denies dysuria, hematuria or urinary frequency Musculoskeletal Musculoskeletal: Reports back pain; Denies arthralgias, myalgias or neck pain Integumentary Denies rash Neurologic Neurologic: Denies headache(s) or paresthesias Psychiatric Psychiatric: Denies anxiety or depression Endocrine Endocrinology: Denies cold intolerance Hematologic/Lymphatic Hematologic/Lymphatic: Denies easy bleeding or easy bruising EXAM Physical Exam Const Vital Signs: 01/19/24 21:16 01/19/24 21:25 01/19/24 23:15 Temperature 97.7 F L Temperature Source Oral Pulse Rate 77 75 Respiratory Rate 18 18 Respiratory Effort Normal Respiratory Depth Normal Respiratory Pattern Normal Blood Pressure 114/81 H 130/56 H Blood Pressure Mean 92 80 Pulse Ox 95 96 Oxygen Delivery Method Room Air Room Air Positive well nourished and well developed General Appearance ED: well developed; Negative for NAD HEENT Denies TM's clear HEENT Narrative: There is no incidental trauma. There is no clinical signs of basilar skull fracture. atraumatic; Negative for tenderness Nose: Negative for septum abnormal Tympanic Membrane ED: Negative for TM's clear Eyes PERRL and EOMs intact bilaterally General Eye ED: Yes other Other Details: There is no nystagmus. There is no subconjunctival hemorrhage. Neck full ROM Neck Narrative: There is no midline posterior neck pain and she has full active range of motion. Chest Wall inspection of chest normal and palpation of chest normal Resp normal respiratory effort and clear to auscultation bilaterally Cardio regular rhythm, S1 normal heart sound, S2 normal heart sound and no murmurs Rate: regular rate GI normal to inspection, nondistended, normoactive bowel sounds, non-tender, non- distended and no masses Back/Spine normal to inspection; Negative for no thoracic nor lumbar tenderness Back/Spine Narrative: There is pain outpatient lower thoracic upper lumbar region. There is also pain ovation over the right iliac wing, pubic symphysis and right greater trochanteric region. Logrolling causes pain laterally. There is no shortening of the leg. Alessio Brad 4 test causes her pain in her back. DP pulses palpable. There is no evidence of injury to the thigh, leg, ankle or foot on the right or left side. Extremity normal to inspection and full ROM Extremity Narrative: Patient is able to lift her right leg up against gravity. She complains of pain laterally. Patient was unable to get up from her last fall. She text her d mildredhter help . Ambulance transport her to the hospital. Neuro oriented x3, CN's II-XII intact bilaterally, moves all extremities, no focal motor deficits and no sensory deficits noted Neuro Narrative: Gait was not assessed because there was concern for fracture to her back and hip. Nelly Coma Scale: document GCS findings Spontaneous Obeys Commands Oriented 15 Sensorium / Orientation: Negative for alert Deep Tendon Reflexes: Rt Patellar (L4): 2+, Lt Patellar (L4): 2+, Rt Ankle (S1): 2+ and Lt Ankle (S1): 2+ Deep Tendon Reflexes Back: Rt Patellar (L4): 2+, Lt Patellar (L4): 2+, Rt Ankle (S1): 2+ and Lt Ankle (S1): 2+ Plantar Reflex: Downgoing: bilateral (There is no clonus at the right or left ankle.) Psych mental status grossly normal; Negative for thought process normal Psych Narrative: Patient seems somewhat confused though she is oriented. She is amnestic. Skin no rashes or lesions noted, no wounds and skin turgor normal Skin Narrative: Patient has a bruise noted over the angle of the mandible to the submental region on the right side. There is no trismus. There is no TMJ tenderness. There is no dental trauma. There is no anterior neck pain. There is no carotid bruit noted on the right. MDM MDM MDM Narrative Medical decision making narrative: Patient presents after total of 5 falls in less than 12 hours. Since patient was unable to ambulate x-rays were obtained of the back and hip to rule out fracture. Because of the fact she has head trauma amnestic complaining of pain CT of the head was obtained based on the [place] CT head rule and Urolene rules to rule out intracranial bleed i.e. subdural hematoma, epidural hematoma, traumatic subarachnoid hemorrhage or intraparenchymal contusion. Lab Data Attestation: I reviewed the patient's lab results. Lab results narrative: CBC reveals neutropenia and anemia. Indices are normal. Basic metabolic panel with slight elevation of glucose of 124. Renal function electrolytes are normal. CO2 anion gap is normal. Labs: Laboratory Results - last 24 hr 01/19/24 22:08 WBC 3.4 L RBC 3.37 L Hgb 10.4 L Hct 30.4 L MCV 90.2 MCH 30.9 MCHC 34.2 RDW Std Deviation 47.1 H RDW Coeff of Juvencio 14.3 Plt Count 116 L MPV 11.2 Immature Gran % (Auto) 1.800 H Neut % (Auto) 74.0 H Lymph % (Auto) 8.3 L [place] % (Auto) 15.9 H Eos % (Auto) 0.0 Baso % (Auto) 0.0 Absolute Neuts (auto) 2.5 Absolute Lymphs (auto) 0.28 L Nucleated RBC % 0 Sodium 133 L Potassium 3.5 Chloride 103 Carbon Dioxide 24.0 Anion Gap 6 BUN 16 Creatinine 0.78 Estim Creat Clear Calc 54.99 Est GFR (MDRD) Af Amer 92 Est GFR (MDRD) Non-Af 76 BUN/Creatinine Ratio 20.6 H Glucose 124 H Calcium 8.7 Radiography Chest X-Ray - ED: Read by ED Physician (Three-view x-ray of the LS spine reveals a compression fraction of L2 that is acute appears comminuted and approximate 50% compressed. Need to obtain CT to rule out burst fracture) and - (Three-view x-ray of the right hip was obtained. There is no evidence of fracture, subluxation dislocation of the femoral neck, intertrochanteric area or infra troches region. The pelvis appears normal as well.) Diagnostic Testing: Clinical Impression(s) from Imaging Studies Brain CT 01/19/24 21:43 IMPRESSION: No acute abnormality. Chronic microvascular ischemic disease. Electronically Signed: Yola Vargas MD at 23:15 EST , Hip/Pelvis X-Ray 01/19/24 22:16 IMPRESSION: No evidence of fracture. Electronically Signed: Yola Vargas MD at 23:19 EST , Lumbar Spine X-Ray 01/19/24 22:16 IMPRESSION: Acute L2 vertebral body compression fracture. Electronically Signed: Yola Vargas MD at 23:22 EST , Lumbar Spine CT 01/19/24 22:29 IMPRESSION: Acute L2 vertebral body fracture with mild retropulsion. MRI may be helpful for further evaluation. Degenerative changes and multilevel central canal stenosis. Electronically Signed: Yola Vargas MD at 23:50 EST , CT of the head without contrast per my interpretation at 2227 reveals no intracranial bleed i.e. subdural hematoma, epidural hematoma, traumatic subarachnoid hemorrhage or intraparenchymal contusion. There is no evidence of skull fracture or fracture involving the sinuses.. There is no fluid in the sinuses. CT reveals fracture of L2 with mild retropulsion of fragments. In light of this we will contact Dr. Belle for spine. EKG Initial EKG: Attestation: I personally reviewed and interpreted this EKG as follows: Interpretation: Sinus Rhythm (Rate 77. NM interval 188 ms. QS duration 78 ms. QT duration 190 ms. [place] is normal.) Management Discussion w/another healthcare provider: Hospitalist and Home Health Attendant (Spoke with Dr. Belle on for spine. Patient will need pain management. Treatment is conservative. A brace would be ideal. Per Dr. Belle surgical intervention at this time is not indicated based on information relayed and interpretation of the CAT scan by radiologist. He will see her in consultat) Discharge Plan Dx/Rx/DC Orders Clinical Impression: Compression fracture of L2 lumbar vertebra, Pulmonary hypertension, FELIPE on CPAP, Concussion without loss of consciousness, initial encounter, Contusion of hip, right, Multiple falls, Elevated blood pressure reading with diagnosis of hypertension Disposition Disposition: Acute Care [facility]
[2024-01-19 22:28] LABS: Anion Gap 6 (5-15); BUN 16 mg/dL (7-18); BUN/Creat Ratio 20.6 RATIO (10-20); Calcium,Total 8.7 mg/dL (8.5-10.1); Chloride 103 mmol/L (98-107); Creatinine, Serum 0.78 mg/dL (0.55-1.02); EST Glomerular Filtration Rate 76 mL/min (>60); Est Glom Filt Rate - Afr Amer 92 mL/min (>60); Estimated Creatinine Clearance 54.99 ml/min; Glucose 124 mg/dL (74-106); Potassium 3.5 mmol/L (3.5-5.1); Sodium Level 133 mmol/L (136-145)
--- NOTE | 2024-01-19 22:29 | CT_ITS ---
INDICATION: Compression fracture and L2 approxi-50% concern bu EXAMINATION: CT LUMBAR SPINE - CT Spine Lumbar W/O Contrast Injection TECHNIQUE: Helically acquired images were obtained of the lumbar spine. 2D reformats were reviewed. A radiation dose optimization technique was used for this scan. The protocol utilizes one or more of the following dose reduction techniques: automated exposure control, adjustment of mA and/or kV according to patient size,and/or use of iterative reconstruction technique. IV Contrast dosage and agent: None. RADIATION DOSAGE (If Supplied By Facility): CTDIvol = ( 22.95 ) mGy, DLP = ( 666.97 ) mGycm COMPARISON: Prior study dated: CT abdomen and pelvis 12/22/2014 FINDINGS: ALIGNMENT: No subluxation. Moderate curvature convex left, increased compared to the prior study. MINERALIZATION: Normal. VERTEBRAL BODIES: Acute L2 vertebral body fracture extends to the superior and inferior endplates with approximately 55% vertebral body height loss, 4-5 mm retropulsion of the posterior vertebral body into the spinal canal. The other vertebral bodies are normal in height. DISC SPACES: Disc space narrowing and osteophytes at most levels. L1-2: Mild broad-based disc bulge. Mild relative narrowing of the central canal. Right neural foraminal encroachment. L2-3: Moderate broad-based disc bulge. Mild facet arthropathy. Ddfe-sb-jilgrvso narrowing of the central canal. L3-4: Moderate disc bulge and osteophyte complex. Facet arthropathy. Moderate narrowing central canal. Right greater than left neural foraminal encroachment. L4-5: Disc osteophyte complex. Marked facet hypertrophy and ligamentum flavum hypertrophy. Moderate to marked narrowing of the central canal. Left greater than right neural foraminal encroachment. L5-S1: Mild disc bulge. Partial sacralization on the right. POSTERIOR ELEMENTS: Facet arthropathy mostly at L3-4 through L5-S1. SPINAL CANAL: Maintained. PARASPINAL SOFT TISSUES: Mild paravertebral hematoma at L2. OTHER: None. CT/Spine Lumbar without Contrast IMPRESSION: Acute L2 vertebral body fracture with mild retropulsion. MRI may be helpful for further evaluation. Degenerative changes and multilevel central canal stenosis. Electronically Signed: Yola Vargas MD at 23:50 EST ,
[2024-01-19 23:15] VITALS: BP 130/56; PULSE 75; RESP 18; O2SAT 96
[2024-01-20] VITALS (7 sets, daily range): BP systolic 97–133; BP diastolic 45–75; PULSE 63–75; RESP 13–16; TEMP 36.6–37.2; O2SAT 92–98; BMI 31.6
--- NOTE | 2024-01-20 00:08 | PCM.HP.STD ---
HPI - General General Date of Admission: 01/20/24 Date of Service: 01/20/24 Chief Complaint: Intractable back pain after falls. HPI Narrative The patient is an 78 y/o F w/ PMHx: Anxiety and Depression, Obesity, FELIPE on CPAP, Asthma, HTN, Orthostatic hypotension, Hx SVT, Chronic anemia, Pulmonary HTN who presents to the [facility] ED on 01/20/2024 with fall from bed during the evening prior and at least 4 times on 01/19/2024 reporting that her legs just give out with onset lower back and right hip discomfort reported as a dull aching worsened with palpation and movement with difficulty even ambulating with episode prior to ED arrival reportedly where she hit her head but no loss of consciousness prompting eventual ED evaluation to be cautious. Patient does not recall falls and is amnesic which is not baseline. In the ED patient reports pain 5 out of 10 in severity initially however following imaging and notable movement required for CT she now rates her pain 8/10 in severity. She notes feeling better if she is laying flat. Workup in the ED included T97.7, heart rate 77, BP 114/81, respiratory rate 18, 95% on room air, CBC with WBC 3.4, hemoglobin 10.4, MCV 90.2, platelet 116 with increased immature granulocytes, lymphopenia, BMP with sodium 133, glucose 124 otherwise not marked appearing, CT of the brain with no acute abnormality with chronic microvascular ischemic change, plain film of the hip and pelvis with no evidence of any fracture, plain film of the lumbar spine with an acute L2 vertebral body compression fracture, follow-up lumbar spine CT with acute L2 vertebral body fracture with mild retropulsion with degenerative changes and multilevel central canal stenosis. In the ED patient ministered morphine 4 mg IV x 1, Zofran 4 mg IV x 1. Discussed case with Dr. Redmond who requested brace be obtained for the patient. [facility] Medical History HTN (hypertension) Diverticulosis Asthma FELIPE on CPAP Pulmonary hypertension SVT (supraventricular tachycardia) Essential hypertension Anemia Orthostatic hypotension Syncope Home Medications ?Medication ?Instructions ?Recorded ?Last Taken ?Type albuterol sulfate 90 mcg/actuation 2 puff inhalation Q6H PRN PRN 01/27/15 Unknown History aerosol inhaler Shortness Of Breath aspirin 81 mg chewable tablet 81 mg PO DAILY@0800 01/27/15 03/24/16 History calcium carbonate 600 mg PO BID 01/27/15 04/12/16 History cholecalciferol (vitamin D3) 25 3,000 unit PO DAILY 01/27/15 04/12/16 History mcg (1,000 unit) tablet polyvinyl alcohol-povidone (PF) 1 ea EACH EYE DAILY PRN dry eyes 01/27/15 Unknown History 1.4 %-0.6 % eye drops in a dropperette acetaminophen 325 mg tablet 650 mg (2 x 325 mg) PO Q6H PRN PRN 04/14/16 Unknown Rx Mild Pain (scale 0-3)/T>100.7 #0 tabs docusate sodium 100 mg capsule 100 mg PO BID PRN Constipation 01/20/19 Unknown History multivitamin-ferrous 1 ea PO DAILY 01/20/19 Unknown History fumarate-folic acid 18 mg-400 mcg tablet amlodipine 5 mg tablet 2.5 mg PO DAILY 03/05/19 Unknown History atenolol 50 mg tablet 50 mg PO DAILY 03/05/19 Unknown History venlafaxine 150 mg tablet,extended 150 mg PO DAILY 09/15/21 Unknown History release 24 hr gabapentin 300 mg capsule 300 mg PO TID PAIN 01/20/24 Unknown History Allergy/AdvReac Type Severity Reaction Status Date / Time alendronate sodium AdvReac Nausea Verified 01/27/22 16:16 lisinopril AdvReac HEADACHES/I Verified 01/27/22 16:16 TCHY losartan (From Cozaar) AdvReac sensitivity Verified 01/27/22 16:16 Family History Mother Diabetes CVA (cerebral vascular accident) Alzheimer disease Grandfather CVA (cerebral vascular accident) Sister Cancer Breast Grandmother Cancer Ovarian other (She did not know her father or his medical history.) Surgical History History of bilateral cataract extraction pyeloplasty History of breast biopsy History of tonsillectomy History of total hysterectomy History of section History of appendectomy Social History Smoking Status: Never smoker alcohol intake: never substance use type: does not use caffeine: No ROS ROS Narrative Admission Review of Systems: CONSTITUTIONAL: No weight loss, fever, chills, + weakness or fatigue. HEENT: Eyes: No visual loss, blurred vision, double vision or yellow sclerae. Ears, Nose, Throat: No hearing loss, sneezing, congestion, runny nose or sore throat. SKIN: No rash or itching, lesions, wounds. CARDIOVASCULAR: No chest pain, chest pressure or chest discomfort, palpitations, edema, orthopnea, syncopal events. RESPIRATORY: No shortness of breath, cough or sputum, wheezing, hemoptysis. GASTROINTESTINAL: No anorexia, nausea, vomiting or diarrhea, abdominal pain, melena, BRBPR. GENITOURINARY: No dysuria, frequency, urgency or retention. NEUROLOGICAL: + Amnesic to recent falls. No headache, dizziness, syncope, paralysis, ataxia, numbness or tingling in the extremities, focal weakness, change in bowel or bladder control, seizure. MUSCULOSKELETAL: + muscle, back pain, joint pain or stiffness. HEMATOLOGIC: + Chronic anemia, easy bleeding/bruising. LYMPHATICS: No enlarged nodes. No history of splenectomy. PSYCHIATRIC: + History of anxiety and depression. ENDOCRINOLOGIC: No reports of sweating, cold or heat intolerance. No polyuria or polydipsia. ALLERGIES: No history of asthma, hives, eczema or rhinitis. Vital Signs Vital Signs Vital Signs: 01/19/24 21:16 01/19/24 21:25 01/19/24 23:15 Temperature 97.7 F L Temperature Source Oral Pulse Rate 77 75 Respiratory Rate 18 18 Respiratory Effort Normal Respiratory Depth Normal Respiratory Pattern Normal Blood Pressure 114/81 H 130/56 H Blood Pressure Mean 92 80 Pulse Ox 95 96 Oxygen Delivery Method Room Air Room Air Weight Weight: 176 lb 9.6 oz Body Mass Index (BMI) 32.3 Physical Exam Narrative Physical Examination: General: Awake, alert, oriented to self, place, some recent events although she does not recall her recent fall, appears to have improved mentation, currently cooperative, laying flat in the ED bed, notes pain is increased since recent movement for imaging, currently 8 out of 10 in severity. Skin: Normal color, normal turgor, no icterus, no cyanosis with noted various staged ecchymoses likely from recent falls including to the face. HEENT: A aside from stage ecchymoses T/NC, EOMI, PERRLA, mildly dry MM, no carotid bruits or JVD noted. Lungs: Mildly diminished, greater bases, appropriate effort, no rales, ronchi or wheezing. Heart: Regular rate and rhythm; no gallop, rub audible. Abdomen: Soft, obese, NTTP, ND, mildly hyperactive BS, no appreciated HSM. Extremities: No cyanosis, clubbing, or edema. Neurological: Patient awake, alert, oriented as noted, cognitive function improving, suspect near baseline intact; pupils equally reactive to light and accommodation, cranial nerves grossly normal, moving extremities however she does have discomfort over the lower thoracic and upper lumbar region with no step-off moving all 4 extremities, no focal deficits, strength severely globally decreased. Psychiatric: Affect appears fatigued, reports pain ongoing 8 out of 10 in severity, no acute evidence of depressive or anxiety feelings but does have underlying history. Results Lab / Micro Data 01/19/24 22:08 01/19/24 22:08 Labs: Laboratory Results - last 24 hr 01/19/24 22:08: WBC 3.4 L, RBC 3.37 L, Hgb 10.4 L, Hct 30.4 L, MCV 90.2, MCH 30.9, MCHC 34.2, RDW Std Deviation 47.1 H, RDW Coeff of Juvencio 14.3, Plt Count 116 L, MPV 11.2, Immature Gran % (Auto) 1.800 H, Neut % (Auto) 74.0 H, Lymph % (Auto) 8.3 L, Marshall % (Auto) 15.9 H, Eos % (Auto) 0.0, Baso % (Auto) 0.0, Absolute Neuts (auto) 2.5, Absolute Lymphs (auto) 0.28 L, Nucleated RBC % 0, Sodium 133 L, Potassium 3.5, Chloride 103, Carbon Dioxide 24.0, Anion Gap 6, BUN 16, Creatinine 0.78, Estim Creat Clear Calc 54.99, Est GFR (MDRD) Af Amer 92, Est GFR (MDRD) Non-Af 76, BUN/Creatinine Ratio 20.6 H, Glucose 124 H, Calcium 8.7 Imaging Radiology Impression Brain CT 01/19/24 21:43 IMPRESSION: No acute abnormality. Chronic microvascular ischemic disease. Electronically Signed: Yola Vargas MD at 23:15 EST , Hip/Pelvis X-Ray 01/19/24 22:16 IMPRESSION: No evidence of fracture. Electronically Signed: Yola Vargas MD at 23:19 EST , Lumbar Spine X-Ray 01/19/24 22:16 IMPRESSION: Acute L2 vertebral body compression fracture. Electronically Signed: Yola Vargas MD at 23:22 EST , Lumbar Spine CT 01/19/24 22:29 IMPRESSION: Acute L2 vertebral body fracture with mild retropulsion. MRI may be helpful for further evaluation. Degenerative changes and multilevel central canal stenosis. Electronically Signed: Yola Vargas MD at 23:50 EST , Assessment & Plan Assessment/Plan (1) Compression fracture of L2 lumbar vertebra: PLAN: Plan The patient is an 78 y/o F w/ PMHx: Anxiety and Depression, Obesity, FELIPE on CPAP, Asthma, HTN, Orthostatic hypotension, Hx SVT, Chronic anemia, Pulmonary HTN who presents to the [facility] ED on 01/20/2024 with fall from bed during the evening prior and at least 4 times on 01/19/2024 reporting that her legs just give out with onset lower back and right hip discomfort reported as a dull aching worsened with palpation and movement with difficulty even ambulating with episode prior to ED arrival reportedly where she hit her head but no loss of consciousness prompting eventual ED evaluation to be cautious. #1. Acute Intractable Back Pain secondary to recurrent mechanical falls with acute L2 vertebral body compression fracture with mild retropulsion, degenerative changes and multilevel central canal stenosis with associated adult failure to thrive: Will admit to [facility], maintain on fall precautions, frequent positioning, initiate low-dose very judicious IV toradol given advanced age, increased home gabapentin regimen, lidocaine patches, judicious tizanidine, po/IV narcotic pain regimen, anti-emetics, bowel regimen. Will continue Ortho-spince consultation initiated per ED. Will continue brace placement request as initiated per ED requested per [facility]. Will consult PT and OT for evaluation as well as Case management for discharge planning. #2. Thrombocytopenia, unclear chronicity as prior labs are remote: Admission platelets 116, prior to this normal range labs however last lab noted 09/12/2019 thus unclear if new or potentially chronic, will trend CBC to delineate. #3. Hypertension: Continue home regimen including amlodipine, atenolol cautiously, PRN hydralazine. #4. History SVT: We will continue atenolol cautiously. #5. Chronic normocytic anemia: Admission hemoglobin 10.4, MCV 90.2, baseline hemoglobin 10-12, stable, continue to trend. #6. Orthostatic hypotension: Will very cautiously initiate positional changes, monitor blood pressures, low threshold to hold BP regimen if needed. #7. Anxiety and depression: We will continue patient on venlafaxine regimen. #8. Obesity: Weight loss and lifestyle changes encouraged. #9. FELIPE: CPAP q HS, she brought her own home CPAP. #10. DVT prophylaxis: Lovenox. #11. CODE status: Patient ERICA is her daughter who is present and living will is currently in place. Discussed CODE status at length including difference between FULL code, DNR-CCA and DNR-CC status. Following discussions about the differences in these status, requested DNR-CCA, no intubation. Advanced Care Planning Face to Face Time: 16 minutes. Charges/Coding Visit Charges Inpatient E&M: 53282 Init Hosp L3 Procedures Hospitalists Procedures: 03290 Advncd Care Plan 30 Min
[2024-01-20] MEDS: Ondansetron 4 MG/2 ML Vial IV (00:34)
[2024-01-20] MEDS: Morphine 4 MG/ML Syringe IV (00:34)
[2024-01-20] MEDS: 0.9% Normal Saline (1000mL) 1,000 ML 100 ML IV (01:57)
[2024-01-20] MEDS: Gabapentin 400 MG Capsule PO ×3 (02:10→21:45)
[2024-01-20] MEDS: Lidocaine 5% Patch 2 PATCH TOPICAL ×2 (02:10→13:20)
[2024-01-20] MEDS: Ketorolac 15 MG/ML Vial IV ×3 (02:10→17:50)
[2024-01-20 02:24] LABS: Bacteria 0 SEEN /hpf (None Seen); Mucous, Urine 0 SEEN /hpf (<or=2+); Red Blood Cells-Urine 0 SEEN /hpf (0-5); Squamous Epithelial Cells - UA 0 SEEN /hpf (5-10); White Blood Cells 0 SEEN /hpf (0-5)
[2024-01-20 02:25] LABS: Color, Urine Yellow (Yellow); Glucose, Dipstick Normal (Normal); Ketone-Dipstick 5 mg/dl (Negative); Leukocyte Esterase-Dipstick Negative /ul (Negative); Nitrite-Dipstick Negative (Negative); Occult Blood-Urine 25 /ul (Negative); Protein-Dipstick 30 mg/dl (Negative); Urine Bilirubin Dipstick Negative (Negative); Urine Clarity Clear (Clear); Urine Urobilinogen Normal (Normal)
[2024-01-20 06:38] LABS: Absolute Lymphocyte Count 0.81 X10^3/uL (0.83-4.51); Absolute Neutrophil Count 1.7 X10^3/uL (2.0-7.7); Basophil# 0.01 X10^3/uL; Basophil% 0.3 % (0-1); Hematocrit 29.2 % (37-47); Hemoglobin 9.7 g/dL (12.0-15.0); Lymphocyte # 0.81 X10^3/ul (0.83-4.51); Lymphocyte % 22.9 % (19-41); Mean Corp Hgb Conc 33.2 g/dL (32-36); Mean Corpuscular Hgb 30.8 pg (27.0-32.0); Mean Corpuscular Volume 92.7 fL (81-99); Mean Platelet Vol. 10.9 fl (6.2-12.0); Monocyte# 0.96 X10^3/uL; Monocyte% 27.1 % (0-10); NRBC Flagged by Analyzer 0 % (0-5); Neutrophil # 1.72 X10^3/uL (2.7-7.7); Neutrophil % 48.6 % (47-70); Platelet Count 104 K/mm3 (150-450); RBC Distribution Width CV 14.6 % (11.6-14.6); RBC Distribution Width SD 49.2 fl (35.1-43.9); Red Blood Count 3.15 M/mm3 (4.2-5.4); White Blood Count 3.5 K/mm3 (4.4-11.0)
[2024-01-20 07:10] LABS: ALB/GLOB Ratio 0.9 RATIO (0.9-2.4); AST(SGOT) 28 U/L (15-37); Alanine Aminotransfer ALT/SGPT 20 U/L (13-56); Albumin, Serum 3.1 g/dL (3.2-5.0); Alkaline Phosphatase 80 U/L (45-117); Anion Gap 5 (5-15); BUN 18 mg/dL (7-18); BUN/Creat Ratio 17.1 RATIO (10-20); Calcium,Total 8.8 mg/dL (8.5-10.1); Chloride 104 mmol/L (98-107); Creatinine, Serum 1.05 mg/dL (0.55-1.02); EST Glomerular Filtration Rate 54 mL/min (>60); Est Glom Filt Rate - Afr Amer 65 mL/min (>60); Estimated Creatinine Clearance 41.49 ml/min; Globulin 3.3 g/dL (2.2-4.2); Glucose 102 mg/dL (74-106); Protein, Total 6.4 g/dL (6.4-8.2); Sodium Level 134 mmol/L (136-145)
[2024-01-20] MEDS: Aspirin 81 MG TAB.CHEW PO (09:13)
[2024-01-20] MEDS: Venlafaxine XR 75 MG Capsule 150 MG PO (09:13)
[2024-01-20] MEDS: Enoxaparin 40 MG/0.4 ML Syringe SC (09:14)
--- NOTE | 2024-01-20 10:40 | CASEMGMT ---
RN?CM?RAILROAD TRACK INSPECTOR?CM?to room to meet with patient for initial transition planning/care coordination?assessment.?RN?CM?introduced self and role at [facility].? Pt voices understanding and consents to?assessment?at this time.? Pt resting in bed in no distress at this time.? Pt is A/O at this time and answers all questions appropriately.?? Care providers, pharmacy, and demographics verified/updated at this time. PCP: Dr Pickering Specialists:DARLING/cardiology, Dr De-anival, Dr Monreal-urology Preferred Pharmacy: [facility] Insurance: [facility], MMO Prescription Benefit:?yes LNOK: 2 daughters: Chandrika and Mariann. Pt had another daughter who . Living Arrangements: Lives alone in one-story home w/no steps to enter. Independent w/ADL's and IADL's. Transportation:?Pt states drives self and states no transportation concerns at this time.? DME: ?States has the following DME:?CPAP, has 2 canes available, but does not use. Has a walker available, but does not use. Pt does not have a shower chair, but states they are in the process of getting one. Pt also provided w/verbal list of places this could be purchased and given [employer] store handout. Pt interested in medical alert info, which was provided at this time. Per ED physician note and H/P, pt to get back brace. Pt states no need for further DME at this time.? HHC/SNF: No hx of either. Pt wishes to return home, if able. PT/OT evals pending. If pt able to discharge home, she is interested in HHC and would like [facility] and declines wanting list of other HHC options. She was made aware of [facility] criteria of being homebound and questions answered. Pt states, if she is unable to go home, she would be amenable to SNF, stating [facility] is 1st choice and [facility] is 2nd choice, and declines wanting list of other SNF options. Pt voices no further concerns/needs at this time.? PLAN:??TBD, pending Dr Redmond C/S and PT/OT evals/recommendations. Pt to get back brace. Sonia BSN?RN?CM
[2024-01-20] MEDS: tiZANidine HCl 2 MG Tablet PO ×2 (12:16→21:45)
[2024-01-20] MEDS: oxyCODONE 5 MG Tablet PO ×2 (12:16→21:44)
[2024-01-20] MEDS: Acetaminophen 325 MG Tablet 650 MG PO (12:16)
--- NOTE | 2024-01-20 12:35 | CASEMGMT ---
Social Work SW met with pt to discuss discharge plan after pt participated in therapy. Pt stating that she feels she did well and does not need SNF placement. Pt is confident she can return home at time of dc. RNCM nell. GURWINDER [place]wood
[2024-01-20] MEDS: MELATONIN 3 MG TABLET PO (21:45)
[2024-01-21 02:00] VITALS: BP 132/69; PULSE 62; RESP 15; TEMP 36.7; O2SAT 94
[2024-01-21] MEDS: Ketorolac 15 MG/ML Vial IV ×2 (02:18→10:45)
[2024-01-21] MEDS: 0.9% Saline Lock 10 ML Syringe IV ×3 (02:18→20:25)
[2024-01-21] MEDS: Gabapentin 400 MG Capsule PO ×3 (05:38→20:18)
[2024-01-21 06:00] VITALS: BMI 32.9
[2024-01-21 07:02] VITALS: O2SAT 94
[2024-01-21] MEDS: Acetaminophen 325 MG Tablet 650 MG PO ×2 (10:42→18:00)
[2024-01-21] MEDS: oxyCODONE 5 MG Tablet PO ×2 (10:42→17:59)
[2024-01-21] MEDS: Venlafaxine XR 75 MG Capsule 150 MG PO (10:43)
[2024-01-21] MEDS: Aspirin 81 MG TAB.CHEW PO (10:43)
[2024-01-21] MEDS: Enoxaparin 40 MG/0.4 ML Syringe SC (10:44)
[2024-01-21] MEDS: Lidocaine 5% Patch 2 PATCH TOPICAL (10:44)
[2024-01-21] MEDS: Atenolol 50 MG Tablet PO (10:44)
[2024-01-21] MEDS: amLODIPine 2.5 MG Tablet PO (10:44)
[2024-01-21 10:50] VITALS: BP 120/52; PULSE 79; RESP 14; TEMP 36.6; O2SAT 96
[2024-01-21 10:58] VITALS: O2SAT 94
--- NOTE | 2024-01-21 14:29 | PCM.PN.HOSP ---
Reason for Visit Reason for Visit: Diagnoses Wedge compression fracture of second lumbar vertebra, initial encounter for closed fracture (01/20/24) Subjective Subjective Patient was seen and examined today, she does have pain in her lower back when she tries to move. I talked briefly with orthopedic surgery about her care, they recommended an MRI of her lumbar spine which I have ordered. Objective Data Objective Data Vital Signs: Vital Signs Temp Pulse Resp BP Pulse Ox O2 Del Method O2 Flow Rate 97.8 F 79 14 120/52 L 94 Room Air 4 01/21/24 10:50 01/21/24 10:50 01/21/24 10:50 01/21/24 10:50 01/21/24 10:58 01/21/24 10:58 01/21/24 07:02 Oxygen Flow Rate (L/min) 4 Oxygen Delivery Method Room Air Weight: 81.2 kg Body Mass Index (BMI) 32.9 Intake & Output: Intake and Output for Last 24 Hours 01/19/24 01/20/24 01/21/24 23:59 23:59 23:59 Intake Total 2550 / 2550 Output Total 550 / 550 Balance 1999 Lab / Micro Data 01/20/24 06:19 01/20/24 06:19 Physical Exam Const alert, oriented x3, no apparent distress and healthy appearing Constitutional Narrative: Patient appears younger than her stated age General Appearance: cooperative, well kempt and well developed Orientation / Consciousness: awake, oriented to person, oriented to place and oriented to time HEENT normocephalic, head/scalp atraumatic and moist oral mucous membranes Eyes PERRL, EOMs intact bilaterally and conjunctivae normal Neck supple, no JVD, thyroid normal and no carotid bruits General: trachea midline Resp normal respiratory effort, no retractions, no use of accessory muscles and clear to auscultation bilaterally Auscultation: Negative for rales, rhonchi or wheezes Cardio regular rate, regular rhythm, S1 normal heart sound, S2 normal heart sound, no murmurs, no rub and no gallops GI normal to inspection, nondistended, normoactive bowel sounds, soft to palpation, non-tender and non-distended Extremity no clubbing, cyanosis or edema Skin no rashes or lesions noted General Skin Exam: no breakdown Neuro oriented x3, CN's II-XII intact bilaterally, no focal motor deficits and no sensory deficits noted Sensorium / Orientation: awake and alert Speech: speech normal Psych affect normal Assessment & Plan Assessment/Plan (1) Compression fracture of L2 lumbar vertebra: PLAN: Plan 1. Acute compression fracture of L2 secondary to osteoporosis-patient will undergo an MRI of the lumbar spine tomorrow, she will be seen in consultation by orthopedic surgery #2 essential hypertension-patient is on amlodipine and atenolol #3 chronic depression/anxiety-patient is on Effexor Total clinical time spent by myself addressing the patient's medical issues, reviewing all of her data, and collaborating with patient's care team: 35 minutes Charges/Coding Visit Charges Inpatient E&M: 19425 Subs Hosp L2
[2024-01-21 16:10] VITALS: BP 101/58; PULSE 71; RESP 16; TEMP 36.6; O2SAT 94
[2024-01-21] MEDS: Calcium Carb/Vitamin D 1 TABLET Tablet PO (16:31)
[2024-01-21 20:00] VITALS: BP 122/59; PULSE 69; RESP 14; TEMP 36.6; O2SAT 94
[2024-01-21] MEDS: MELATONIN 3 MG TABLET PO (20:18)
[2024-01-21] MEDS: Morphine 2 MG/ML Syringe IV (20:19)
[2024-01-21] MEDS: Ondansetron 4 MG/2 ML Vial IV (20:25)
[2024-01-22 05:00] VITALS: BP 122/75; PULSE 84; RESP 15; TEMP 37.1; O2SAT 93
[2024-01-22] MEDS: Gabapentin 400 MG Capsule PO (05:09)
[2024-01-22 05:44] VITALS: BMI 33.2
[2024-01-22] MEDS: oxyCODONE 5 MG Tablet PO ×4 (06:13→21:58)
[2024-01-22] MEDS: tiZANidine HCl 2 MG Tablet PO (06:13)
[2024-01-22 08:14] VITALS: BP 131/48; PULSE 66; RESP 18; TEMP 36.8; O2SAT 93
--- NOTE | 2024-01-22 08:15 | MRI_ITS ---
STUDY: MRI LUMBAR SPINE WITHOUT CONTRAST REASON FOR EXAM: Female, 78 years old. Compression fracture L2, fall from bed, 5 falls within 12 hours TECHNIQUE: Standardized fat and water weighted pulse sequences were obtained in the sagittal and axial planes. COMPARISON: CT lumbar spine dated January 19, 2024 FINDINGS: Moderate acute compression fracture of the L2 vertebral body is present with 50-60% loss of height but only minimal retropulsion of the posterior superior cortex. Diffuse edema is present throughout the vertebral body. Mild cortical offset is present anteriorly. The spinal ligaments are intact. No epidural hemorrhage is present. Normal lumbar lordosis. There is a levoscoliosis of the lumbar spine. Normal conus medullaris that terminates at the L1 level. T12-L1: Normal endplates. Normal disc height, hydration and morphology. Normal bilateral facet joints. Normal central canal and bilateral lateral recesses. Normal bilateral intervertebral neural foramina. L1-2: Diffuse disc desiccation with mild disc space narrowing and slight annular bulging. Mild endplate spurring. Normal bilateral facet joints. Normal central canal and bilateral lateral recesses. Normal bilateral intervertebral neural foramina. L2-3: Normal endplates. Diffuse disc desiccation with mild posterior disc space narrowing without bulging or herniation of the disc. Slight retrolisthesis of L2 on L3 of 2 mm. Mild facet joint hypertrophy. Mild fluid distention of the right facet joint.. Normal central canal and bilateral lateral recesses. Normal bilateral intervertebral neural foramina. L3-4: Diffuse disc desiccation with mild central and moderate posterior disc space narrowing. Slight posterior annular bulging. Mild facet joint and ligament of flavum hypertrophy. Mild to moderate left foraminal stenosis with nerve root impingement. Mild right foraminal stenosis. Normal central canal and bilateral lateral recesses. L4-5: Normal endplates. Diffuse disc desiccation with mild posterior disc space narrowing and slight annular bulging. Mild to moderate facet joint and ligament of flavum hypertrophy contributing to mild central canal stenosis. Mild left foraminal stenosis. Normal right neural foramen. L5-S1: Normal endplates. Normal disc height, hydration and morphology. Normal bilateral facet joints. Normal central canal and bilateral lateral recesses. Normal bilateral intervertebral neural foramina. Normal visualized sacral ala. There is mild paraspinal muscular atrophy. MRI/Spine Lumbar (Routine) IMPRESSION: 1. Moderate acute compression fracture of the L2 vertebral body is present with 50-60% loss of height but only minimal retropulsion of the posterior superior cortex. Diffuse edema is present throughout the vertebral body. Mild cortical offset is present anteriorly. 2. Multilevel degenerative changes, as described above. Electronically Signed: Kevin Cruz MD at 11:04 EST ,
--- NOTE | 2024-01-22 08:18 | NURSING ---
pt asks nurse have you seen my informed pt that said nurse has not seen pt yet, informed pt of visiting hours. pt states well he has been for 19 years, i just thought you may have seen him. prior to that, pt unable to recall month but is able to state what holiday is coming up and associate that with the month.pt states she does not feel like she is confused.
--- NOTE | 2024-01-22 08:34 | PN.HOSP_ITS ---
Reason for Visit Reason for Visit: Diagnoses Wedge compression fracture of second lumbar vertebra, initial encounter for closed fracture (01/20/24) Subjective Subjective Still with back pain. Objective Data Objective Data Vital Signs: Vital Signs Temp Pulse Resp BP Pulse Ox O2 Del Method O2 Flow Rate 36.8 C 66 18 131/48 H 93 Room Air 2 01/22/24 08:14 01/22/24 08:14 01/22/24 08:14 01/22/24 08:14 01/22/24 08:14 01/22/24 08:14 01/22/24 08:07 Oxygen Flow Rate (L/min) 2 Oxygen Delivery Method Room Air Weight: 81.8 kg Body Mass Index (BMI) 33.2 Intake & Output: Intake and Output for Last 24 Hours 01/20/24 01/21/24 01/22/24 23:59 23:59 23:59 Intake Total 2550 / 2550 1350 / 1350 Output Total 550 / 550 550 / 550 600 / 600 Balance 1999 / 1999 800 / 800 -600 / -600 Lab / Micro Data 01/20/24 06:19 01/20/24 06:19 Physical Exam Const alert and no apparent distress HEENT head/scalp atraumatic and moist oral mucous membranes Resp normal respiratory effort and no retractions Extremity normal to inspection and full ROM Neuro no focal motor deficits and no sensory deficits noted Psych affect normal Assessment & Plan Assessment/Plan (1) Compression fracture of L2 lumbar vertebra: PLAN: Plan Acute L2 vertebral compression fracture * Noted on CAT scan from . MRI ordered * Consult placed to spine surgery for evaluation to see if patient may be a candidate for kyphoplasty. * 25-OH d level 83.6. No replacement nececssary. VTE prophylaxis: LMWH if Charges/Coding Visit Charges Inpatient E&M: 02590 Subs Hosp L2
[2024-01-22] MEDS: Enoxaparin 40 MG/0.4 ML Syringe SC (09:59)
[2024-01-22] MEDS: Senna/Docusate Sodium 1 Tablet 2 TABLET PO (09:59)
[2024-01-22] MEDS: Aspirin 81 MG TAB.CHEW PO (09:59)
[2024-01-22] MEDS: Atenolol 50 MG Tablet PO (10:00)
[2024-01-22] MEDS: Acetaminophen 325 MG Tablet 650 MG PO ×3 (10:00→21:57)
[2024-01-22] MEDS: amLODIPine 2.5 MG Tablet PO (10:00)
[2024-01-22] MEDS: Lidocaine 5% Patch 2 PATCH TOPICAL (10:00)
[2024-01-22] MEDS: Venlafaxine XR 75 MG Capsule 150 MG PO (10:01)
[2024-01-22] MEDS: Calcium Carb/Vitamin D 1 TABLET Tablet PO ×2 (10:01→16:55)
[2024-01-22 10:39] LABS: Vitamin D,25 Hydroxy 83.6 ng/mL
[2024-01-22 14:05] VITALS: BP 92/49; PULSE 55; RESP 18; TEMP 36.6; O2SAT 95
[2024-01-22 14:48] VITALS: BP 132/63; PULSE 56
--- NOTE | 2024-01-22 15:14 | CON.PCM.OR_ITS ---
Documented by User: [email or web address] Che 01/22/24 15:22 HPI Consult Data Date of Consult: 01/22/24 HPI Narrative HPI Narrative: SCOUT PERRY, is a 78 y/o F w/ PMHx: Anxiety and Depression, Obesity, FELIPE on CPAP, Asthma, HTN, Orthostatic hypotension, Hx SVT, Chronic anemia, Pulmonary HTN who presents to the [facility] ED on 01/20/2024 with fall from bed during the evening prior and at least 4 times on 01/19/2024 reporting that her legs just give out with onset lower back and right hip discomfort reported as a dull aching worsened with palpation and movement with difficulty even ambulating with episode prior to ED arrival reportedly where she hit her head but no loss of consciousness prompting eventual ED evaluation to be cautious. Patient does not recall falls and is amnesic which is not baseline. In the ED patient reports pain 5 out of 10 in severity initially however following imaging and notable movement required for CT she now rates her pain 8/10 in severity. She notes feeling better if she is laying flat. Workup in the ED included T97.7, heart rate 77, BP 114/81, respiratory rate 18, 95% on room air, CBC with WBC 3.4, hemoglobin 10.4, MCV 90.2, platelet 116 with increased immature granulocytes, lymphopenia, BMP with sodium 133, glucose 124 otherwise not marked appearing, CT of the brain with no acute abnormality with chronic microvascular ischemic change, plain film of the hip and pelvis with no evidence of any fracture, plain film of the lumbar spine with an acute L2 vertebral body compression fracture, follow-up lumbar spine CT with acute L2 vertebral body fracture with mild retropulsion with degenerative changes and multilevel central canal stenosis. Patient was laying supine in bed upon arrival. Says that she fell due to her knees giving out on her without pain. She has walked with therapy while admitted and has ambulated to the bathroom with assistance. She had multiple falls before going to the ER. Patient has a history of right sided back pain that extends down her right lateral leg. Says that she has done PT in the past for the back. No injections with pain management. 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 History of SVT and mitral valve prolapse, on baby aspirin. ON LICENSE OF [facility] Medical History HTN (hypertension) Diverticulosis Asthma FELIPE on CPAP Pulmonary hypertension SVT (supraventricular tachycardia) Essential hypertension Anemia Orthostatic hypotension Syncope Home Medications ?Medication ?Instructions ?Recorded ?Last Taken ?Type albuterol sulfate 90 mcg/actuation 2 puff inhalation Q6H PRN PRN 01/27/15 Unknown History aerosol inhaler Shortness Of Breath aspirin 81 mg chewable tablet 81 mg PO DAILY@0800 01/27/15 03/24/16 History calcium carbonate 600 mg PO BID 01/27/15 04/12/16 History cholecalciferol (vitamin D3) 25 3,000 unit PO DAILY 01/27/15 04/12/16 History mcg (1,000 unit) tablet polyvinyl alcohol-povidone (PF) 1 ea EACH EYE DAILY PRN dry eyes 01/27/15 Unknown History 1.4 %-0.6 % eye drops in a dropperette acetaminophen 325 mg tablet 650 mg (2 x 325 mg) PO Q6H PRN PRN 04/14/16 Unknown Rx Mild Pain (scale 0-3)/T>100.7 #0 tabs docusate sodium 100 mg capsule 100 mg PO BID PRN Constipation 01/20/19 Unknown History multivitamin-ferrous 1 ea PO DAILY 01/20/19 Unknown History fumarate-folic acid 18 mg-400 mcg tablet amlodipine 5 mg tablet 2.5 mg PO DAILY 03/05/19 Unknown History atenolol 50 mg tablet 50 mg PO DAILY 03/05/19 Unknown History venlafaxine 150 mg tablet,extended 150 mg PO DAILY 09/15/21 Unknown History release 24 hr gabapentin 300 mg capsule 300 mg PO TID PAIN 01/20/24 Unknown History Allergy/AdvReac Type Severity Reaction Status Date / Time alendronate sodium AdvReac Nausea Verified 01/27/22 16:16 lisinopril AdvReac HEADACHES/I Verified 01/27/22 16:16 TCHY losartan (From Cozaar) AdvReac sensitivity Verified 01/27/22 16:16 Family History Mother Diabetes CVA (cerebral vascular accident) Alzheimer disease Grandfather CVA (cerebral vascular accident) Sister Cancer Breast Grandmother Cancer Ovarian Family History other Surgical History History of bilateral cataract extraction pyeloplasty History of breast biopsy History of tonsillectomy History of total hysterectomy History of section History of appendectomy Social History Smoking Status: Never smoker alcohol intake: never substance use type: does not use caffeine: No Vital Signs Vital Signs Vital Signs: 01/21/24 16:10 01/21/24 20:00 01/21/24 20:00 Temperature 97.9 F 97.8 F Temperature Source Oral Oral Pulse Rate 71 69 Pulse Strength Respiratory Rate 16 14 Respiratory Effort Normal Respiratory Depth Normal Respiratory Pattern Normal Blood Pressure 101/58 L 122/59 H Blood Pressure Mean 72 80 Blood Pressure Source Monitor Monitor Blood Pressure Position Supine Semi-Fowlers Blood Pressure Location Left Arm Right Arm Pulse Ox 94 94 Oxygen Delivery Method Room Air CPAP CPAP Oxygen Flow Rate (L/min) 01/21/24 22:00 01/22/24 05:00 01/22/24 05:00 Temperature 98.7 F Temperature Source Oral Pulse Rate 84 Pulse Strength Normal (2+) Respiratory Rate 15 Respiratory Effort Normal Respiratory Depth Normal Respiratory Pattern Normal Blood Pressure 122/75 H Blood Pressure Mean 90 Blood Pressure Source Monitor Blood Pressure Position Supine Blood Pressure Location Right Arm Pulse Ox 93 Oxygen Delivery Method Nasal Cannula Nasal Cannula Oxygen Flow Rate (L/min) 2 2 01/22/24 08:07 01/22/24 08:14 01/22/24 08:14 Temperature 98.2 F Temperature Source Oral Pulse Rate 66 Pulse Strength Respiratory Rate 18 Respiratory Effort Normal Respiratory Depth Respiratory Pattern Blood Pressure 131/48 H Blood Pressure Mean 75 Blood Pressure Source Monitor Blood Pressure Position Semi-Fowlers Blood Pressure Location Right Arm Pulse Ox 93 Oxygen Delivery Method Nasal Cannula Room Air Oxygen Flow Rate (L/min) 2 01/22/24 14:05 01/22/24 14:05 01/22/24 14:48 Temperature 97.8 F Temperature Source Oral Pulse Rate 55 L 56 L Pulse Strength Respiratory Rate 18 Respiratory Effort Normal Respiratory Depth Respiratory Pattern Blood Pressure 92/49 L 132/63 H Blood Pressure Mean 63 86 Blood Pressure Source Monitor Monitor Blood Pressure Position Supine Supine Blood Pressure Location Left Arm Right Arm Pulse Ox 95 Oxygen Delivery Method Room Air Oxygen Flow Rate (L/min) Weight Weight: 180 lb 5.41 oz Body Mass Index (BMI) 33.2 Physical Exam Narrative Neurological exam of the lower extremities shows 5x5 power. Muscle exam done in bed. Normal sensations across all dermatomes. Lumbar midline tenderness and right paraspinal tenderness. Painful when rolling on side in bed. Lidocaine patch applied over lumbar back. Const alert, oriented x3 and no apparent distress Lab / Micro Data 01/20/24 06:19 01/20/24 06:19 Labs: Laboratory Results - last 24 hr 01/22/24 10:03: Vitamin D 25-Hydroxy 83.6 Imaging Radiology Impression Lumbar Spine MRI 01/22/24 08:15 IMPRESSION: 1. Moderate acute compression fracture of the L2 vertebral body is present with 50-60% loss of height but only minimal retropulsion of the posterior superior cortex. Diffuse edema is present throughout the vertebral body. Mild cortical offset is present anteriorly. 2. Multilevel degenerative changes, as described above. Electronically Signed: Kevin Cruz MD at 11:04 [facility] Reading Location ID and State: [address] [place] [address] , Service support , Assessment & Plan Assessment/Plan (1) Compression fracture of L2 lumbar vertebra: QUALIFIERS: Encounter type: initial encounter Qualified Code(s): S32.020A - Wedge compression fracture of second lumbar vertebra, initial encounter for closed fracture PLAN: Plan Reviewed lumbar MRI, CT, and xrays. Imaging shows an acute L2 compression fracture. Plan for L2 kyphoplasty tomorrow. Discussed risks and benefits of the procedure. Discontinue Lovenox prior to the procedure. Patient is in agreement. Documented by User: Dr. Luiz Redmond MD 01/22/24 15:31 HPI Consult Data Date of Consult: 01/22/24 ON LICENSE OF [facility] Medical History HTN (hypertension) Diverticulosis Asthma FELIPE on CPAP Pulmonary hypertension SVT (supraventricular tachycardia) Essential hypertension Anemia Orthostatic hypotension Syncope Home Medications ?Medication ?Instructions ?Recorded ?Last Taken ?Type albuterol sulfate 90 mcg/actuation 2 puff inhalation Q6H PRN PRN 01/27/15 Unknown History aerosol inhaler Shortness Of Breath aspirin 81 mg chewable tablet 81 mg PO DAILY@0800 01/27/15 03/24/16 History calcium carbonate 600 mg PO BID 01/27/15 04/12/16 History cholecalciferol (vitamin D3) 25 3,000 unit PO DAILY 01/27/15 04/12/16 History mcg (1,000 unit) tablet polyvinyl alcohol-povidone (PF) 1 ea EACH EYE DAILY PRN dry eyes 01/27/15 Unknown History 1.4 %-0.6 % eye drops in a dropperette acetaminophen 325 mg tablet 650 mg (2 x 325 mg) PO Q6H PRN PRN 04/14/16 Unknown Rx Mild Pain (scale 0-3)/T>100.7 #0 tabs docusate sodium 100 mg capsule 100 mg PO BID PRN Constipation 01/20/19 Unknown History multivitamin-ferrous 1 ea PO DAILY 01/20/19 Unknown History fumarate-folic acid 18 mg-400 mcg tablet amlodipine 5 mg tablet 2.5 mg PO DAILY 03/05/19 Unknown History atenolol 50 mg tablet 50 mg PO DAILY 03/05/19 Unknown History venlafaxine 150 mg tablet,extended 150 mg PO DAILY 09/15/21 Unknown History release 24 hr gabapentin 300 mg capsule 300 mg PO TID PAIN 01/20/24 Unknown History Allergy/AdvReac Type Severity Reaction Status Date / Time alendronate sodium AdvReac Nausea Verified 01/27/22 16:16 lisinopril AdvReac HEADACHES/I Verified 01/27/22 16:16 TCHY losartan (From Cozaar) AdvReac sensitivity Verified 01/27/22 16:16 Family History Mother Diabetes CVA (cerebral vascular accident) Alzheimer disease Grandfather CVA (cerebral vascular accident) Sister Cancer Breast Grandmother Cancer Ovarian Family History other Surgical History History of bilateral cataract extraction pyeloplasty History of breast biopsy History of tonsillectomy History of total hysterectomy History of section History of appendectomy Social History Smoking Status: Never smoker alcohol intake: never substance use type: does not use caffeine: No Lab / Micro Data 01/20/24 06:19 01/20/24 06:19 Assessment & Plan Assessment/Plan (1) Compression fracture of L2 lumbar vertebra: QUALIFIERS: Encounter type: initial encounter Qualified Code(s): S32.020A - Wedge compression fracture of second lumbar vertebra, initial encounter for closed fracture PLAN: Plan Reviewed lumbar MRI, CT, and xrays. Imaging shows an acute L2 compression fracture. Patient has had multiple falls, and does not remember as to which fall because the severe pain but patient has been unable to have even good painless bed mobility turning sideways. She is severely limited because of the new fracture pain. She has had prior lumbar radiculopathy pain over months and years for which she has undergone physical therapy but no epidural injections. Explained to her that the lumbar radiculopathy symptoms likely from L4-5 showing disc and facet degeneration. The radiculopathy symptoms from the lower lumbar degenerative levels may not improve with L2 cement augmentation. However the pain arising from the L2 fracture has severely limited her mobility and is not improving with bedrest and analgesics. She is not able to do activities of daily living because of this pain. Discussed treatment options including continued nonoperative treatment versus cement augmentation via spine mary lou or balloon kyphoplasty. Patient wishes to proceed with cement augmentation procedure. Plan for L2 spine mary lou versus balloon kyphoplasty tomorrow. Discussed risks and benefits of the procedure. The risks include but are not limited to infection, bleeding, hematoma formation, need for further surgery, cement extravasation, cement embolism, hypertension, cardiopulmonary event, DVT, pulmonary embolism, persistent pain, future fractures, stroke, . Patient understands and agrees to proceed with surgery. Discontinue Lovenox prior to the procedure. N.p.o. after midnight. Patient is in agreement. Charges/Coding Visit Charges Inpatient E&M: 96196 Init Hosp L3
[2024-01-22 20:31] VITALS: BP 92/57; PULSE 68; RESP 18; TEMP 36.4; O2SAT 92
[2024-01-22] MEDS: MELATONIN 3 MG TABLET PO (21:57)
[2024-01-23] VITALS (11 sets, daily range): BP systolic 101–141; BP diastolic 45–60; PULSE 60–76; RESP 18–20; TEMP 36.6–36.8; O2SAT 91–96; BMI 33.3; BMI 33.1
--- NOTE | 2024-01-23 07:40 | PN.HOSP_ITS ---
Reason for Visit Reason for Visit: Diagnoses Wedge compression fracture of second lumbar vertebra, initial encounter for closed fracture (01/20/24) Subjective Subjective Feeling okay when she is at rest. No new events overnight. Objective Data Objective Data Vital Signs: Vital Signs Temp Pulse Resp BP Pulse Ox O2 Del Method O2 Flow Rate 36.6 C 66 18 112/57 L 92 CPAP 2 01/23/24 03:12 01/23/24 03:12 01/23/24 03:12 01/23/24 03:12 01/23/24 03:12 01/23/24 03:15 01/22/24 20:30 Oxygen Flow Rate (L/min) 2 Oxygen Delivery Method CPAP Weight: 82.2 kg Body Mass Index (BMI) 33.3 Intake & Output: Intake and Output for Last 24 Hours 01/21/24 01/22/24 01/23/24 23:59 23:59 23:59 Intake Total 1350 / 1350 300 / 300 0 / 0 Output Total 550 / 550 600 / 600 Balance 800 / 800 -300 / -300 0 / 0 Lab / Micro Data 01/20/24 06:19 01/20/24 06:19 Labs: Laboratory Results - last 24 hr 01/22/24 10:03: Vitamin D 25-Hydroxy 83.6 Radiography Diagnostic Testing: Radiology Impression Lumbar Spine MRI 01/22/24 08:15 IMPRESSION: 1. Moderate acute compression fracture of the L2 vertebral body is present with 50-60% loss of height but only minimal retropulsion of the posterior superior cortex. Diffuse edema is present throughout the vertebral body. Mild cortical offset is present anteriorly. 2. Multilevel degenerative changes, as described above. Electronically Signed: Kevin Cruz MD at 11:04 EST Reading Location ID and State: [facility] / [place] , Service support , Physical Exam Const alert and no apparent distress HEENT head/scalp atraumatic, moist oral mucous membranes, oropharynx normal, dentition normal and gingiva normal Resp normal respiratory effort, no retractions, no use of accessory muscles and clear to auscultation bilaterally Cardio regular rate, regular rhythm, S1 normal heart sound and S2 normal heart sound GI normal to inspection, nondistended, normoactive bowel sounds, soft to palpation, non-tender and non-distended Assessment & Plan Assessment/Plan (1) Compression fracture of L2 lumbar vertebra: QUALIFIERS: Encounter type: initial encounter Qualified Code(s): S32.020A - Wedge compression fracture of second lumbar vertebra, initial encounter for closed fracture PLAN: Plan Acute L2 vertebral compression fracture * Noted on CAT scan from . MRI shows 50-60% loss of height of L2. * Consult placed to spine surgery for evaluation to see if patient may be a candidate for kyphoplasty. * 25-OH d level 83.6. No replacement necessary. * Pt to go for kyphoplasty today VTE prophylaxis: LMWH Disposition: To be determined. Will monitor patient after her kyphoplasty overnight. If she does well and pain is tolerable and activity is safe, patient will likely be discharged tomorrow. Plan is for her to stay with her daughter while she is convalescing with home care services. Discussed with patient's daughters at bedside Charges/Coding Visit Charges Inpatient E&M: 48549 Subs Hosp L2
[2024-01-23] MEDS: Morphine 2 MG/ML Syringe IV (07:52)
[2024-01-23] MEDS: 0.9% Saline Lock 10 ML Syringe IV (07:52)
[2024-01-23] MEDS: Ondansetron 4 MG/2 ML Vial IV (07:53)
[2024-01-23] MEDS: tiZANidine HCl 2 MG Tablet PO (07:55)
[2024-01-23] MEDS: Atenolol 50 MG Tablet PO (07:55)
[2024-01-23] MEDS: amLODIPine 2.5 MG Tablet PO (07:55)
[2024-01-23] MEDS: Senna/Docusate Sodium 1 Tablet 2 TABLET PO (07:55)
[2024-01-23] MEDS: Venlafaxine XR 75 MG Capsule 150 MG PO (07:56)
--- NOTE | 2024-01-23 10:31 | PCM.PRE.AN2 ---
ASA Classification* ASA Classification ASA Classification: 2 Assessment & Plan Anesthesia* Anesthesia Assessment Anesthesia Assessment: Discussed sedation and/or anesthesia options, risks, benefits, and alternatives with patient/parents/legal guardian/POA. Questions invited. The patient/parents/legal guardian/POA seems to understand and agrees to proceed with anesthesia plan. Reviewed the physical assessment, medical history, allergy history and patient home medications list prior to surgery/procedure/anesthetic and documented any changes. Performed airway and anesthesia risk assessments. Anesthesia Type Anesthesia Type: General History Source History Obtained from:: Patient and Chart Anesthesia Focused Assessment* Temperature: 98.0 F Pulse Rate: 71 Blood Pressure: 141/60 Respiratory Rate: 18 Pulse Ox: 96 Oxygen Delivery Method: Room Air Airway Assessment Mouth opens: >3 cm Mallampati Score: IV Teeth Condition: Dentures (Patient has full upper and lower dentures. They are currently out.) Neck Range of motion (ROM): Limited ROM (Somewhat decreased extension) Pertinent Findings EKG Pertinent Findings:: January 19 2024. Normal sinus rhythm. Minimal voltage criteria for LVH Focused Labs Anesthesia Preop lab: CBC WBC 3.5 K/mm3 (4.4-11.0) L 01/20/24 06:19 RBC 3.15 M/mm3 (4.2-5.4) L 01/20/24 06:19 Hgb 9.7 g/dL (12.0-15.0) L 01/20/24 06:19 Hct 29.2 % (37-47) L 01/20/24 06:19 Plt Count 104 K/mm3 (150-450) L 01/20/24 06:19 CHEMISTRY Potassium 4.0 mmol/L (3.5-5.1) 01/20/24 06:19 Sodium 134 mmol/L (136-145) L 01/20/24 06:19 BUN 18 mg/dL (7-18) 01/20/24 06:19 Creatinine 1.05 mg/dL (0.55-1.02) H 01/20/24 06:19 Glucose 102 mg/dL (74-106) 01/20/24 06:19 COAG PT 14.0 SECONDS (11.7-14.9) 03/29/16 10:51 Pre-Assessment Diagnosis/Proposed Procedure Planned Operative Procedure(s): Kyphoplasty at lumbar 2, spine mary lou. Anesthesia History Anesthesia History - radio time buyer: Anesthesia History - radio time buyer Hx Hospitalization No 09/12/19 17:01 Any Problems With Anesthesia Yes: nausea and vomiting 01/22/24 21:59 Cholinesterase deficiency No 01/22/24 21:59 You/Your Family Experience No 01/22/24 21:59 fever (hyperthermia) with Relationship Recent Exposure to Contagious No 01/22/24 21:59 Disease Does patient have nerve No 01/22/24 21:59 stimulator Patient instructed to have No 01/22/24 21:59 device shut off --Does patient have Pacemaker No 01/23/24 07:39 or ICD? When Was Last Pacemaker Check QUESTION #4 FULL TEXT: You/Your Family Experience fever (hyperthermia) with Anesthesia Last Oral Intake Last Oral intake: Last Oral Intake NPO since 00:00 01/23/24 07:39 Meds taken in AM with sips of Yes 01/23/24 07:39 water? Meds patient instructed to see MAR 01/23/24 07:39 take am of surgery PONV PONV - radio time buyer: PONV - radio time buyer Female HX of Motion Sickness HX of N/V After Surgery Non-Smoker Duration of Surgery greater than 60 minutes Number of Risk Factors PONV Score Height & Weight Height & Weight: Anesthesia: Height & Weight Height 5 ft 2 in 01/23/24 07:39 Weight: 82.2 kg 01/23/24 07:39 Body Mass Index (BMI) 33.1 01/23/24 07:39 Respiratory Assessment Respiratory Assessment - radio time buyer: Respiratory Tract Infection Hx - radio time buyer Hx Respiratory Tract Infection Yes: bronchitis 01/22/24 21:59 Any additional information?: Yes Hx Respiratory Tract Infection: Yes (Patient had bronchitis last week. Still with a persistent cough.) STOP Sleep Apnea STOP Sleep Apnea - radio time buyer: STOP Sleep Apnea - radio time buyer Hx Hypertension Yes 01/20/24 11:33 Hx Sleep Apnea Yes 01/20/24 01:33 CPAP Yes 01/20/24 01:33 BIPAP No 01/20/24 01:33 Do you snore loudly (louder than talking or can be heard Do you often feel tired/ fatigued/ sleepy during daytime? Has anyone observed you stop breathing during sleep? STOP Results Positive 01/20/24 01:33 QUESTION #5 FULL TEXT : Do you snore loudly (louder than talking or can be heard through closed doors)? Tobacco Use History Tobacco Use History - radio time buyer: Tobacco Use History - radio time buyer Tobacco Use Smoking Status Never smoker 01/20/24 01:33 Hx Tobacco Use No 01/20/24 01:33 Years Smoking Packs Smoked per Day Smoking Cessation Date was within the last 15 years Hx Smoking Cessation Date Hx Smoking Cessation Counseling Hematologic Medial History Hematologic Hx - radio time buyer: Hematologic Medical Hx - clinical documentation manager Hx of Blood Transfusion No 01/20/24 01:33 Hx of Transfusion in last 3 No 01/20/24 01:33 Months Date of Last Transfusion (if within last 3 months) Ever experience any problems No 01/20/24 01:33 with transfusion(s)? Specify any problems Hx of Preganancy in last 3 No 01/20/24 01:33 Months Nurse Filling Out Transfusion DREDICK 01/20/24 01:33 & Questions: Date: 01/20/24 01/20/24 01:33 Time: 01:34 01/20/24 01:33 Patient unable to answer at this time (ie. confused, unrespo /Reproduction History /Reproductive History - radio time buyer: /Reproductive Hx- radio time buyer Hx Now Gestational Age (in weeks): EDC: Hx Hx Para Hx Section SAB Active Medications Active Medications: Current Medications Generic Name Dose Route Start Last Admin Trade Name Freq PRN Reason Stop Dose Admin Acetaminophen 650 mg 01/20/24 01:24 01/22/24 21:57 Acetaminophen 325 Mg Tablet PO 650 mg Q4H PRN PRN Administration Fever, pain 1-12/13 Amlodipine Besylate 2.5 mg 01/20/24 10:00 01/23/24 07:55 Amlodipine 2.5 Mg Tablet PO 2.5 mg DAILY [facility] Administration Protocol Aspirin 81 mg 01/20/24 08:00 01/23/24 07:08 Aspirin 81 Mg Tab.Chew PO Not Given DAILY@0800 [facility] Atenolol 50 mg 01/20/24 10:00 01/23/24 07:55 Atenolol 50 Mg Tablet PO 50 mg DAILY [facility] Administration Protocol Calcium/Vitamin D 1 tablet 01/21/24 17:00 01/23/24 07:08 Calcium Carb/Vitamin D 1 Tablet Tablet PO Not Given BIDCM [facility] Glycerin/Hypromellose/Polyethylene 1 drp 01/20/24 10:00 Glycerin/Hypromellose/[id number] 15 Ml Bottle EACH EYE DAILY PRN dry eyes Sodium Chloride 500 mls @ 15 mls/hr 01/20/24 01:25 IV .[id number] PRN Saline Flush Sodium Chloride 500 mls @ 15 mls/hr 01/20/24 01:25 IV .[id number] PRN Additional IVPB Infusion Lactated Ringer's 1,000 mls @ 15 mls/hr 01/23/24 10:30 IV 01/28/24 23:49 .Q48H [facility] Protocol Cefazolin Sodium 2 gm/ N/A 20 mls @ 400 mls/hr 01/23/24 10:30 IV 01/23/24 10:32 PREOP ONE Tranexamic Acid 1,000 mg/ 110 mls @ 660 mls/hr 01/23/24 10:30 Sodium Chloride IV 01/23/24 10:39 X1 ONE Tranexamic Acid 1,000 mg/ 110 mls @ 660 mls/hr 01/23/24 10:30 Sodium Chloride IV 01/23/24 10:39 X1 ONE Lidocaine 2 patch 01/20/24 01:24 01/23/24 07:08 Lidocaine 5% Patch TOPICAL Not Given DAILY [facility] Protocol Melatonin 3 mg 01/20/24 01:24 01/22/24 21:57 Melatonin 3 Mg Tablet PO 3 mg QHS PRN PRN Administration INSOMNIA Morphine Sulfate 2 mg 01/20/24 01:24 01/23/24 07:52 Morphine 2 Mg/Ml Syringe IV 2 mg Q3H PRN PRN Administration Pain Score 6-10 Ondansetron HCl 4 mg 01/20/24 01:24 01/23/24 07:53 Ondansetron 4 Mg/2 Ml Vial IV 4 mg Q8H PRN PRN Administration NAUSEA/VOMITING Oxycodone HCl 5 mg 01/20/24 01:24 01/22/24 21:58 Oxycodone 5 Mg Tablet PO 5 mg Q4H PRN PRN Administration Pain Score 4-10 Senna/Docusate Sodium 2 tablet 01/20/24 01:24 01/23/24 07:55 Senna/Docusate Sodium 1 Tablet PO 2 tablet BID PRN PRN Administration Constipation Sodium Chloride 10 - 40 ml 01/20/24 01:25 01/23/24 07:52 0.9% Saline Lock 10 Ml Syringe IV 10 ml UD PRN Administration SALINE FLUSH Tizanidine HCl 2 mg 01/20/24 01:24 01/23/24 07:55 Tizanidine Hcl 2 Mg Tablet PO 2 mg Q8H PRN PRN Administration muscle spasms/strain Venlafaxine HCl 150 mg 01/20/24 10:00 01/23/24 07:56 Venlafaxine Xr 75 Mg Capsule PO 150 mg DAILY [facility] Administration PFSH Medical History HTN (hypertension) Diverticulosis Asthma FELIPE on CPAP Pulmonary hypertension SVT (supraventricular tachycardia) Essential hypertension Anemia Orthostatic hypotension Syncope Home Medications ?Medication ?Instructions ?Recorded ?Last Taken ?Type albuterol sulfate 90 mcg/actuation 2 puff inhalation Q6H PRN PRN 01/27/15 Unknown History aerosol inhaler Shortness Of Breath aspirin 81 mg chewable tablet 81 mg PO DAILY@0800 01/27/15 03/24/16 History calcium carbonate 600 mg PO BID 01/27/15 04/12/16 History cholecalciferol (vitamin D3) 25 3,000 unit PO DAILY 01/27/15 04/12/16 History mcg (1,000 unit) tablet polyvinyl alcohol-povidone (PF) 1 ea EACH EYE DAILY PRN dry eyes 01/27/15 Unknown History 1.4 %-0.6 % eye drops in a dropperette acetaminophen 325 mg tablet 650 mg (2 x 325 mg) PO Q6H PRN PRN 04/14/16 Unknown Rx Mild Pain (scale 0-3)/T>100.7 #0 tabs docusate sodium 100 mg capsule 100 mg PO BID PRN Constipation 01/20/19 Unknown History multivitamin-ferrous 1 ea PO DAILY 01/20/19 Unknown History fumarate-folic acid 18 mg-400 mcg tablet amlodipine 5 mg tablet 2.5 mg PO DAILY 03/05/19 Unknown History atenolol 50 mg tablet 50 mg PO DAILY 03/05/19 Unknown History venlafaxine 150 mg tablet,extended 150 mg PO DAILY 09/15/21 Unknown History release 24 hr gabapentin 300 mg capsule 300 mg PO TID PAIN 01/20/24 Unknown History Allergy/AdvReac Type Severity Reaction Status Date / Time alendronate sodium AdvReac Nausea Verified 01/27/22 16:16 lisinopril AdvReac HEADACHES/I Verified 01/27/22 16:16 TCHY losartan (From Cozaar) AdvReac sensitivity Verified 01/27/22 16:16 Family History Mother Diabetes CVA (cerebral vascular accident) Alzheimer disease Grandfather CVA (cerebral vascular accident) Sister Cancer Breast Grandmother Cancer Ovarian Family History other Surgical History History of bilateral cataract extraction pyeloplasty History of breast biopsy History of tonsillectomy History of total hysterectomy History of section History of appendectomy Social History Smoking Status: Never smoker alcohol intake: never substance use type: does not use caffeine: No Review of Systems (Anesthesia) ROS Narrative System reviewed and no additional complaints, except as documented.
[2024-01-23] MEDS: Lactated Ringers 1,000 ML 15 ML IV (10:33)
--- NOTE | 2024-01-23 12:25 | RAD_ITS ---
INDICATION: hypoxia EXAMINATION/TECHNIQUE: X-RAY - XR Chest 1 View COMPARISON: FINDINGS: LINES/DEVICES: None. LUNGS: No consolidation, edema or effusion. No pneumothorax. MEDIASTINUM AND CARDIOVASCULAR STRUCTURES: Cardiac silhouette not enlarged. Central airways and mediastinal contour are unremarkable. BONES AND SOFT TISSUES: Unremarkable. RAD/Chest 1 View IMPRESSION: No radiographic evidence of acute cardiopulmonary disease. Electronically Signed: Carlos Camara DO at 23:57 EST ,
--- NOTE | 2024-01-23 12:25 | PCM.PN.ORT ---
Subjective Subjective Seen with Dr. Redmond. Planned L2 kyphoplasty postponed. Patient with acute L2 compression fracture. Upon arrival to the OR SpO2 between 85-87% on room air. Patient also has a productive cough. No breathing treatments given while at the hospital. Objective Data Objective Data Vital Signs: Vital Signs Temp Pulse Resp BP Pulse Ox O2 Del Method O2 Flow Rate 98.3 F 62 18 114/53 L 93 Room Air 2 01/23/24 11:45 01/23/24 11:45 01/23/24 11:45 01/23/24 11:45 01/23/24 11:45 01/23/24 11:45 01/23/24 10:35 Oxygen Flow Rate (L/min) 2 Oxygen Delivery Method Room Air Weight: 181 lb 3.52 oz Body Mass Index (BMI) 33.1 Intake & Output: Intake and Output for Last 24 Hours 01/21/24 01/22/24 01/23/24 23:59 23:59 23:59 Intake Total 1350 / 1350 300 / 300 0 / 0 Output Total 550 / 550 600 / 600 Balance 800 / 800 -300 / -300 0 / 0 Lab / Micro Data 01/20/24 06:19 01/20/24 06:19 Physical Exam Narrative Patient brought to the OR with a cough. Oxygen improved with oxygen. Const alert, oriented x3 and no apparent distress Assessment & Plan Assessment/Plan (1) Compression fracture of L2 lumbar vertebra: QUALIFIERS: Encounter type: initial encounter Qualified Code(s): S32.020A - Wedge compression fracture of second lumbar vertebra, initial encounter for closed fracture PLAN: Plan L2 kyphoplasty cancelled today by anesthesia. Plan to perform either later this week or early next week pending when medically appropriate. Hospitalist to order chest xray and start positive expiratory pressure.
[2024-01-23] MEDS: oxyCODONE 5 MG Tablet PO ×2 (13:28→18:41)
[2024-01-23] MEDS: Acetaminophen 325 MG Tablet 650 MG PO ×2 (13:28→18:41)
[2024-01-23] MEDS: Polyethylene Glycol 3350 17 GM PACKET PO (13:31)
[2024-01-23] MEDS: Lidocaine 5% Patch 2 PATCH TOPICAL (13:32)
[2024-01-23] MEDS: Calcium Carb/Vitamin D 1 TABLET Tablet PO (13:32)
[2024-01-23] MEDS: Albuterol 2.5 MG/3 ML VIAL.NEB. INHALATION ×2 (14:17→19:32)
--- NOTE | 2024-01-23 19:31 | NURSING ---
1725 phoned XRAY and spoke with Felicity regarding CXR and no results/reading and xray was ordered urgent. she will review
[2024-01-24] VITALS (9 sets, daily range): BP systolic 127–158; BP diastolic 55–67; PULSE 58–77; RESP 18–20; TEMP 36.6–37.1; O2SAT 94–100; BMI 33.3
[2024-01-24] MEDS: oxyCODONE 5 MG Tablet PO ×3 (04:27→17:55)
[2024-01-24] MEDS: tiZANidine HCl 2 MG Tablet PO (04:27)
[2024-01-24] MEDS: Acetaminophen 325 MG Tablet 650 MG PO ×3 (04:27→17:55)
[2024-01-24] MEDS: Albuterol 2.5 MG/3 ML VIAL.NEB. INHALATION ×3 (07:25→19:12)
--- NOTE | 2024-01-24 07:27 | PN.HOSP_ITS ---
Reason for Visit Reason for Visit: Diagnoses Wedge compression fracture of second lumbar vertebra, initial encounter for closed fracture (01/20/24) Subjective Subjective kyphoplasty cancelled yesterday as her pulse ox was 85% on room and she was coughing. Objective Data Objective Data Vital Signs: Vital Signs Temp Pulse Resp BP Pulse Ox O2 Del Method O2 Flow Rate 36.8 C 59 L 18 153/61 H 94 CPAP 3 01/24/24 03:44 01/24/24 07:26 01/24/24 07:26 01/24/24 03:44 01/24/24 07:26 01/24/24 07:26 01/24/24 07:26 Oxygen Flow Rate (L/min) 3 Oxygen Delivery Method CPAP Weight: 82.1 kg Body Mass Index (BMI) 33.3 Intake & Output: Intake and Output for Last 24 Hours 01/22/24 01/23/24 01/24/24 23:59 23:59 23:59 Intake Total 300 / 300 346.5 / 346.5 300 / 300 Output Total 600 / 600 650 / 650 700 / 700 Balance -300 / -300 -303.5 / -303.5 -400 / -400 Lab / Micro Data 01/20/24 06:19 01/20/24 06:19 Radiography Diagnostic Testing: Radiology Impression Chest X-Ray 01/23/24 12:25 IMPRESSION: No radiographic evidence of acute cardiopulmonary disease. Electronically Signed: Carlos Camara DO at 23:57 EST Reading Location ID and State: [address] [place] [address] Tel [phone], Service support , Physical Exam Const alert and no apparent distress HEENT head/scalp atraumatic and moist oral mucous membranes Resp Resp Narrative: bibiasilar crackles. Cardio regular rate, regular rhythm, S1 normal heart sound and S2 normal heart sound GI normal to inspection, nondistended, normoactive bowel sounds, soft to palpation, non-tender and non-distended Neuro Sensorium / Orientation: awake and alert Assessment & Plan Assessment/Plan (1) Compression fracture of L2 lumbar vertebra: QUALIFIERS: Encounter type: initial encounter Qualified Code(s): S32.020A - Wedge compression fracture of second lumbar vertebra, initial encounter for closed fracture PLAN: Plan Acute L2 vertebral compression fracture * Noted on CAT scan from . MRI shows 50-60% loss of height of L2. * Consult placed to spine surgery for evaluation to see if patient may be a candidate for kyphoplasty. * 25-OH d level 83.6. No replacement necessary. * kyphoplasty cancelled 01/22 by DIRECT MARKETING ANALYST. I discussed with Dr. Portillo, who evaluated pt post-op. He admitted that he did not check her pulse ox as she looked well. When pt was getting ready for surgery it was the DIRECT MARKETING ANALYST who unilaterally cancelled the procedure as her pulse ox was 85% on room air and was coughing. * Unless there are new events, patient will be medically cleared to proceed with surgery on 01/24. I notified Dr. Redmond. Hypoxia * CXR on 01/22 reviewed was unremarkable. * Pt has known FELIPE (and uses CPAP), pulmonary HTN, COPD maybe a component of Obesity hypoventilation syndrome. * Pt has some crackles, so I suspect some atelectasis. That along with her other lung disease may have compounded her situation. I do not anticipate a worsening respiratory status at this time. Though I continued to recommend ongoing use of IS. Will add mucinex. VTE prophylaxis: LMWH DW patient's dtr at bedside. Charges/Coding Visit Charges Inpatient E&M: 45250 Subs Hosp L2
[2024-01-24] MEDS: Calcium Carb/Vitamin D 1 TABLET Tablet PO ×2 (09:08→17:59)
[2024-01-24] MEDS: Aspirin 81 MG TAB.CHEW PO (09:08)
[2024-01-24] MEDS: Polyethylene Glycol 3350 17 GM PACKET PO (09:27)
[2024-01-24] MEDS: Lidocaine 5% Patch 2 PATCH TOPICAL (09:27)
[2024-01-24] MEDS: Atenolol 50 MG Tablet PO (09:28)
[2024-01-24] MEDS: Venlafaxine XR 75 MG Capsule 150 MG PO (09:28)
[2024-01-24] MEDS: amLODIPine 2.5 MG Tablet PO (09:28)
[2024-01-24] MEDS: Gabapentin 400 MG Capsule PO ×2 (11:14→17:59)
[2024-01-24] MEDS: guaiFENesin 600 MG Tablet PO ×2 (11:14→20:34)
--- NOTE | 2024-01-24 14:23 | PCM.PN.ORT ---
Subjective Subjective I saw the patient today and 323. Planned L2 kyphoplasty was postponed yesterday due to low saturations. Patient with acute L2 compression fracture. Patient has improved with her breathing after breathing treatments since yesterday. Her room air saturation is 90 right now. She denies any significant shortness of breath. Objective Data Objective Data Vital Signs: Vital Signs Temp Pulse Resp BP Pulse Ox O2 Del Method O2 Flow Rate 97.8 F 61 18 127/55 H 94 Nasal Cannula 2 01/24/24 09:20 01/24/24 10:42 01/24/24 10:42 01/24/24 09:20 01/24/24 13:50 01/24/24 09:21 01/24/24 09:21 Oxygen Flow Rate (L/min) 2 Oxygen Delivery Method Nasal Cannula Weight: 180 lb 15.992 oz Body Mass Index (BMI) 33.3 Intake & Output: Intake and Output for Last 24 Hours 01/22/24 01/23/24 01/24/24 23:59 23:59 23:59 Intake Total 300 / 300 346.5 / 346.5 300 / 300 Output Total 600 / 600 650 / 650 700 / 700 Balance -300 / -300 -303.5 / -303.5 -400 / -400 Lab / Micro Data 01/20/24 06:19 01/20/24 06:19 Radiography Diagnostic Testing: Radiology Impression Chest X-Ray 01/23/24 12:25 IMPRESSION: No radiographic evidence of acute cardiopulmonary disease. Electronically Signed: Carlos Camara DO at 23:57 EST Reading Location ID and State: [facility] / [place] Tel [phone], Service support , Physical Exam Narrative Continues to have significant pain with side turning. Tenderness in the lumbar region. Neurologic evaluation lower extremity shows 5 x 5 power normal shows normal sensations in all dermatomes. Const alert, oriented x3 and no apparent distress Assessment & Plan Assessment/Plan (1) Compression fracture of L2 lumbar vertebra: QUALIFIERS: Encounter type: initial encounter Qualified Code(s): S32.020A - Wedge compression fracture of second lumbar vertebra, initial encounter for closed fracture PLAN: Plan L2 kyphoplasty cancelled yesterday by anesthesia. Patient has now been cleared by hospitalist. I have discussed with anesthesia who will review the case again. Tentatively we will reschedule L2 spine mary lou/kyphoplasty cement augmentation for tomorrow afternoon. Patient to be n.p.o. after midnight. Discussed this with patient. All questions answered.
[2024-01-25] VITALS (19 sets, daily range): BP systolic 116–160; BP diastolic 57–81; PULSE 58–83; RESP 16–20; TEMP 36.4–37.1; O2SAT 88–97; BMI 32.7; BMI 32.5
[2024-01-25] MEDS: oxyCODONE 5 MG Tablet PO (00:27)
[2024-01-25] MEDS: Acetaminophen 325 MG Tablet 650 MG PO (00:28)
[2024-01-25] MEDS: Ondansetron 4 MG/2 ML Vial IV (07:55)
[2024-01-25] MEDS: 0.9% Saline Lock 10 ML Syringe IV ×2 (07:55→17:58)
[2024-01-25] MEDS: Morphine 2 MG/ML Syringe IV (07:55)
[2024-01-25] MEDS: Albuterol 2.5 MG/3 ML VIAL.NEB. INHALATION ×2 (11:12→19:30)
[2024-01-25] MEDS: Atenolol 50 MG Tablet PO (11:42)
[2024-01-25] MEDS: Ipratropium/Albuterol Sulfate 3 ML AMPUL.NEB INHALATION (13:28)
--- NOTE | 2024-01-25 13:41 | PCM.PN.HOSP ---
Reason for Visit Reason for Visit: Diagnoses Wedge compression fracture of second lumbar vertebra, initial encounter for closed fracture (01/20/24) Subjective Subjective Breathing well. Has not required oxygen except for running through her CPAP. Pain controlled except when she sits up. Dtr present states that the confusion is better and endorses that she gets confused even at home. Patient has never been formally evaluated for dementia. Objective Data Objective Data Vital Signs: Vital Signs Temp Pulse Resp BP Pulse Ox O2 Del Method O2 Flow Rate 36.8 C 83 18 135/60 H 93 Room Air 2 01/25/24 11:37 01/25/24 11:37 01/25/24 11:37 01/25/24 11:37 01/25/24 11:37 01/25/24 11:37 01/24/24 09:21 Oxygen Flow Rate (L/min) 2 Oxygen Delivery Method Room Air Weight: 80.6 kg Body Mass Index (BMI) 32.5 Intake & Output: Intake and Output for Last 24 Hours 01/23/24 01/24/24 01/25/24 23:59 23:59 23:59 Intake Total 346.5 / 346.5 1350 / 1350 0 / 0 Output Total 650 / 650 700 / 700 400 / 400 Balance -303.5 / -303.5 650 / 650 -400 / -400 Lab / Micro Data 01/20/24 06:19 01/20/24 06:19 Physical Exam Const alert and no apparent distress HEENT head/scalp atraumatic and moist oral mucous membranes Resp normal respiratory effort and no retractions Extremity normal to inspection and full ROM Neuro moves all extremities Sensorium / Orientation: awake and alert Psych affect normal Assessment & Plan Assessment/Plan (1) Compression fracture of L2 lumbar vertebra: QUALIFIERS: Encounter type: initial encounter Qualified Code(s): S32.020A - Wedge compression fracture of second lumbar vertebra, initial encounter for closed fracture PLAN: Plan Acute L2 vertebral compression fracture Noted on CAT scan from . MRI shows 50-60% loss of height of L2. Consult placed to spine surgery for evaluation to see if patient may be a candidate for kyphoplasty. 25-OH d level 83.6. No replacement necessary. kyphoplasty cancelled 01/22 by INFORMATION TECHNOLOGY ADVISOR. I discussed with Dr. Portillo, who evaluated pt post-op. He admitted that he did not check her pulse ox as she looked well. When pt was getting ready for surgery it was the INFORMATION TECHNOLOGY ADVISOR who unilaterally cancelled the procedure as her pulse ox was 85% on room air and was coughing. Unless there are new events, patient will be medically cleared to proceed with surgery on 01/24. I notified Dr. Redmond. Hypoxia CXR on 01/22 reviewed was unremarkable. Pt has known FELIPE (and uses CPAP), pulmonary HTN, COPD maybe a component of Obesity hypoventilation syndrome. Pt has some crackles, so I suspect some atelectasis. That along with her other lung disease may have compounded her situation. I do not anticipate a worsening respiratory status at this time. Though I continued to recommend ongoing use of IS. Will add mucinex. VTE prophylaxis: LMWH DW patient's dtr at bedside. Dispostion: plan to monitor pt overnight post kyphoplasty, if she does well, then hopefully she can be discharged to home with her dtr in AM. Charges/Coding Visit Charges Inpatient E&M: 63863 Subs Hosp L2
--- NOTE | 2024-01-25 13:45 | SUR.PREOP ---
rhonchi noted to bilat lungs. pt with nonproductive cough. spo2 92% on room air. notified of above.
--- NOTE | 2024-01-25 13:52 | PRE.ANES_ITS ---
ASA Classification* ASA Classification ASA Classification: 3 Assessment & Plan Anesthesia* Anesthesia Assessment Anesthesia Assessment: Discussed sedation and/or anesthesia options, risks, benefits, and alternatives with patient/parents/legal guardian/POA. Questions invited. The patient/parents/legal guardian/POA seems to understand and agrees to proceed with anesthesia plan. Reviewed the physical assessment, medical history, allergy history and patient home medications list prior to surgery/procedure/anesthetic and documented any changes. Performed airway and anesthesia risk assessments. Anesthesia Type Anesthesia Type: General History Source History Obtained from:: Patient and Chart Anesthesia Focused Assessment* Temperature: 98.3 F Pulse Rate: 83 Blood Pressure: 135/60 Respiratory Rate: 18 Pulse Ox: 93 Oxygen Delivery Method: Room Air Airway Assessment Mouth opens: >3 cm Mallampati Score: II Teeth Condition: Dentures (Upper and lower dentures are out.) Neck Range of motion (ROM): Limited ROM (Slight decrease in extension) Focused Labs Anesthesia Preop lab: CBC WBC 3.5 K/mm3 (4.4-11.0) L 01/20/24 06:19 RBC 3.15 M/mm3 (4.2-5.4) L 01/20/24 06:19 Hgb 9.7 g/dL (12.0-15.0) L 01/20/24 06:19 Hct 29.2 % (37-47) L 01/20/24 06:19 Plt Count 104 K/mm3 (150-450) L 01/20/24 06:19 CHEMISTRY Potassium 4.0 mmol/L (3.5-5.1) 01/20/24 06:19 Sodium 134 mmol/L (136-145) L 01/20/24 06:19 BUN 18 mg/dL (7-18) 01/20/24 06:19 Creatinine 1.05 mg/dL (0.55-1.02) H 01/20/24 06:19 Glucose 102 mg/dL (74-106) 01/20/24 06:19 COAG PT 14.0 SECONDS (11.7-14.9) 03/29/16 10:51 Pre-Assessment Diagnosis/Proposed Procedure Planned Operative Procedure(s): Kyphoplasty at lumbar 2, spine mary lou. 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 When Was Last Pacemaker Check QUESTION #4 FULL TEXT: You/Your Family Experience fever (hyperthermia) with Anesthesia Last Oral Intake Last Oral intake: Last Oral Intake NPO since 00:00 01/25/24 11:37 Meds taken in AM with sips of Yes 01/25/24 11:37 water? 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 Still with a persistent cough. STOP Sleep Apnea STOP Sleep Apnea - circus train supervisor: STOP Sleep Apnea - circus train supervisor Hx Hypertension Yes 01/20/24 11:33 Hx Sleep Apnea Yes 01/20/24 01:33 CPAP Yes 01/20/24 01:33 BIPAP No 01/20/24 01:33 Do you snore loudly (louder than talking or can be heard Do you often feel tired/ fatigued/ sleepy during daytime? Has anyone observed you stop breathing during sleep? STOP Results Positive 01/20/24 01:33 QUESTION #5 FULL TEXT : Do you snore loudly (louder than talking or can be heard through closed doors)? 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 Specify any problems Hx of Preganancy in last 3 No 01/20/24 01:33 Months Nurse Filling Out Transfusion DREDICK 01/20/24 01:33 & Questions: Date: 01/20/24 01/20/24 01:33 Time: 01:34 01/20/24 01:33 Patient unable to answer at this time (ie. confused, unrespo /Reproduction History /Reproductive History - circus train supervisor: /Reproductive Hx- circus train supervisor Hx Now No 01/25/24 11:47 Gestational Age (in weeks): EDC: Hx Hx Para Hx Section SAB No 01/25/24 11:47 Active Medications Active Medications: Current Medications Generic Name Dose Route Start Last Admin Trade Name Freq PRN Reason Stop Dose Admin Acetaminophen 650 mg 01/20/24 01:24 01/25/24 00:28 Acetaminophen 325 Mg Tablet PO 650 mg Q4H PRN PRN Administration Fever, pain 1-12/13 Albuterol Sulfate 2.5 mg 01/23/24 15:00 01/25/24 11:12 Albuterol 2.5 Mg/3 Ml Vial.Neb. INHALATION 2.5 mg Q4HWA.RT ROBERTO Administration Amlodipine Besylate 2.5 mg 01/20/24 10:00 01/24/24 09:28 Amlodipine 2.5 Mg Tablet PO 2.5 mg DAILY ROBERTO Administration Protocol Aspirin 81 mg 01/20/24 08:00 01/25/24 07:47 Aspirin 81 Mg Tab.Chew PO Not Given DAILY@0800 [facility] Atenolol 50 mg 01/20/24 10:00 01/25/24 11:42 Atenolol 50 Mg Tablet PO 50 mg DAILY ROBERTO Administration Protocol Calcium/Vitamin D 1 tablet 01/21/24 17:00 01/25/24 07:47 Calcium Carb/Vitamin D 1 Tablet Tablet PO Not Given BIDCM ROBERTO Gabapentin 400 mg 01/24/24 12:00 01/25/24 07:47 Gabapentin 400 Mg Capsule PO Not Given TIDCM ROBERTO Glycerin/Hypromellose/Polyethylene 1 drp 01/20/24 10:00 Glycerin/Hypromellose/[id number] 15 Ml Bottle EACH EYE DAILY PRN dry eyes Guaifenesin 600 mg 01/24/24 10:00 01/24/24 20:34 Guaifenesin 600 Mg Tablet PO 600 mg BID ROBERTO Administration Sodium Chloride 500 mls @ 15 mls/hr 01/20/24 01:25 IV .[id number] PRN Saline Flush Sodium Chloride 500 mls @ 15 mls/hr 01/20/24 01:25 IV .[id number] PRN Additional IVPB Infusion Lactated Ringer's 1,000 mls @ 15 mls/hr 01/23/24 10:30 01/23/24 13:39 IV 01/28/24 23:49 Infused .Q48H ROBERTO Infusion Protocol Lactated Ringer's 1,000 mls @ 15 mls/hr 01/25/24 13:30 IV 01/31/24 02:49 .Q48H ROBERTO Protocol Tranexamic Acid 1,000 mg/ 110 mls @ 660 mls/hr 01/25/24 14:00 Sodium Chloride IV 01/25/24 14:09 X1 ONE Tranexamic Acid 1,000 mg/ 110 mls @ 660 mls/hr 01/25/24 15:00 Sodium Chloride IV 01/25/24 15:09 X1 ONE Cefazolin Sodium 2 gm/ N/A 20 mls @ 400 mls/hr 01/25/24 14:00 IV 01/25/24 14:02 PREOP ONE Lidocaine 2 patch 01/20/24 01:24 01/24/24 09:27 Lidocaine 5% Patch TOPICAL 2 patch DAILY ROBERTO Administration Protocol Melatonin 3 mg 01/20/24 01:24 01/22/24 21:57 Melatonin 3 Mg Tablet PO 3 mg QHS PRN PRN Administration INSOMNIA Morphine Sulfate 2 mg 01/20/24 01:24 01/25/24 07:55 Morphine 2 Mg/Ml Syringe IV 2 mg Q3H PRN PRN Administration Pain Score 6-10 Ondansetron HCl 4 mg 01/20/24 01:24 01/25/24 07:55 Ondansetron 4 Mg/2 Ml Vial IV 4 mg Q8H PRN PRN Administration NAUSEA/VOMITING Oxycodone HCl 5 mg 01/20/24 01:24 01/25/24 00:27 Oxycodone 5 Mg Tablet PO 5 mg Q4H PRN PRN Administration Pain Score 4-10 Polyethylene Glycol 17 gm 01/23/24 12:05 01/24/24 09:27 Polyethylene Glycol 3350 17 Gm Packet PO 17 gm DAILY ROBERTO Administration Senna/Docusate Sodium 2 tablet 01/20/24 01:24 01/23/24 07:55 Senna/Docusate Sodium 1 Tablet PO 2 tablet BID PRN PRN Administration Constipation Sodium Chloride 10 - 40 ml 01/20/24 01:25 01/25/24 07:55 0.9% Saline Lock 10 Ml Syringe IV 20 ml UD PRN Administration SALINE FLUSH Tizanidine HCl 2 mg 01/20/24 01:24 01/24/24 04:27 Tizanidine Hcl 2 Mg Tablet PO 2 mg Q8H PRN PRN Administration muscle spasms/strain Venlafaxine HCl 150 mg 01/20/24 10:00 01/24/24 09:28 Venlafaxine Xr 75 Mg Capsule PO 150 mg DAILY ROBERTO Administration PFSH Medical History HTN (hypertension) Diverticulosis Asthma FELIPE on CPAP Pulmonary hypertension SVT (supraventricular tachycardia) Essential hypertension Anemia Orthostatic hypotension Syncope Home Medications ?Medication ?Instructions ?Recorded ?Last Taken ?Type albuterol sulfate 90 mcg/actuation 2 puff inhalation Q6H PRN PRN 01/27/15 Unknown History aerosol inhaler Shortness Of Breath aspirin 81 mg chewable tablet 81 mg PO DAILY@0800 01/27/15 03/24/16 History calcium carbonate 600 mg PO BID 01/27/15 04/12/16 History cholecalciferol (vitamin D3) 25 3,000 unit PO DAILY 01/27/15 04/12/16 History mcg (1,000 unit) tablet polyvinyl alcohol-povidone (PF) 1 ea EACH EYE DAILY PRN dry eyes 01/27/15 Unknown History 1.4 %-0.6 % eye drops in a dropperette acetaminophen 325 mg tablet 650 mg (2 x 325 mg) PO Q6H PRN PRN 04/14/16 Unknown Rx Mild Pain (scale 0-3)/T>100.7 #0 tabs docusate sodium 100 mg capsule 100 mg PO BID PRN Constipation 01/20/19 Unknown History multivitamin-ferrous 1 ea PO DAILY 01/20/19 Unknown History fumarate-folic acid 18 mg-400 mcg tablet amlodipine 5 mg tablet 2.5 mg PO DAILY 03/05/19 Unknown History atenolol 50 mg tablet 50 mg PO DAILY 03/05/19 Unknown History venlafaxine 150 mg tablet,extended 150 mg PO DAILY 09/15/21 Unknown History release 24 hr gabapentin 300 mg capsule 300 mg PO TID PAIN 01/20/24 Unknown History Allergy/AdvReac Type Severity Reaction Status Date / Time alendronate sodium AdvReac Nausea Verified 01/27/22 16:16 lisinopril AdvReac HEADACHES/I Verified 01/27/22 16:16 TCHY losartan (From Cozaar) AdvReac sensitivity Verified 01/27/22 16:16 Family History Mother Diabetes CVA (cerebral vascular accident) Alzheimer disease Grandfather CVA (cerebral vascular accident) Sister Cancer Breast Grandmother Cancer Ovarian Family History other Surgical History History of bilateral cataract extraction pyeloplasty History of breast biopsy History of tonsillectomy History of total hysterectomy History of section History of appendectomy Social History Smoking Status: Never smoker alcohol intake: never substance use type: does not use caffeine: No Review of Systems (Anesthesia) ROS Narrative System reviewed and no additional complaints, except as documented.
[2024-01-25] MEDS: Bupivacaine 0.25% 30 ML Vial (14:07)
[2024-01-25] MEDS: Cefazolin 2 GM in Syringe IV (14:18)
[2024-01-25] MEDS: TXA 1000mg in NS100 100ml (IVPB at Incision) 660 MG IV (14:24)
--- NOTE | 2024-01-25 14:45 | RAD_ITS ---
PROCEDURE: Fluoroscopic-guided kyphoplasty of L2 DATE OF EXAMINATION: January 25, 2024 INDICATION: Female, 78 years old. PHYSICIAN: FLUOROSCOPY TIME (if supplied): 157.8 seconds RADIATION DOSAGE (If Supplied By Facility): CTDIvol = ( ) mGy, DLP = ( 70.55 ) mGycm Technique: Fluoroscopic guided kyphoplasty of L2 was performed. Findings: 2 fluoroscopic guided images were obtained in both the lateral and AP projection to document findings during the exam. For more complete information recommend correlation with procedural notes RAD/Lumbar Spine 2 or 3 Views IMPRESSION: Fluoroscopic guided kyphoplasty of L2 Electronically Signed: Kole Kim MD at 16:42 EST ,
[2024-01-25] MEDS: TXA 1000mg in NS100 100ml (IVPB at Closure) 660 MG IV (15:00)
[2024-01-25] MEDS: Lidocaine 1% (20 ml mdv) 20 ML Vial (15:40)
--- NOTE | 2024-01-25 16:04 | PCM.POST.ANE ---
Anesthesia: Postop Eval I Current Vital Signs Temperature: 98.3 F Pulse Rate: 66 Blood Pressure: 136/64 Respiratory Rate: 16 Pulse Ox: 97 Oxygen Delivery Method: Room Air Assessment Airway patent: Yes Spontaneous unlabored respirations: Yes Mental status: Awake and Calm nausea: No Vomiting: No Anesthesia Complication: No Fluid Hydration Crystalloid volume administer (ml): 700 Total IV fluid infused: 700 Progress Note Anesthesia document: Postop Eval 1 completed: Yes
--- NOTE | 2024-01-25 16:09 | PCM.OPRPT ---
Operative Report (Standard) Operative Information Surgery/Procedure Performed: L2 vertebral cement augmentation with spine mary lou implantation Surgeon: Luiz Redmond Date of Procedure: 01/25/24 Procedure Start Time: 14:54 Procedure Stop Time: 15:46 Pre-Operative Diagnosis: L2 vertebral compression fracture Post-Operative Diagnosis: Same Select all DRAINS/GRAFTS/IMPLANTS that apply: Implanted device Implanted device details: [place] spine mary lou system, bone cement Type of Anesthesia: General Estimated Blood Loss: 5 cc Specimen collected: No Description of surgery: ATTENDING SURGEON: Luiz Redmond MD WIND TURBINE MECHANIC: none PREOPERATIVE DIAGNOSIS: L2 compression fracture POSTOPERATIVE DIAGNOSIS: Same PROCEDURE PERFORMED: L2 percutaneous vertebral cement augmentation using [place] SpineJack CPT 63587 Mechanically expandable paired synthetic substitute, ICD-10 PCS procedure code [id number] INDICATIONS FOR THE PROCEDURE: The patient is a 78-year-old lady, who presents with back pain after an fall last week. She was unable to ambulate and was brought to the hospital and was admitted for pain control. Despite rest and analgesics, patient continued to have severe pain limiting ambulation. Imaging showed L2 acute/subacute compression fracture. After failing conservative management, the patient requested cement augmentation with SpineJack. Risk benefits were discussed in detail. The risks include but are not limited to infection, bleeding, hematoma formation, nerve or spinal cord injury, DVT, pulmonary embolism, cement Mollison, hypertension, cardiac arrest, persistent pain, need for further procedures, cement extravasation, future insufficiency fractures. After a discussion of the risks and benefits of the procedure, consent was signed for the procedure. DETAILS OF PROCEDURE: Patient was met in the preoperative holding area and the correct site was marked. The patient was brought back to the operative suite. Timeout was performed. Patient was carefully positioned flat Malik table with pillows. General anesthesia was performed. Preop antibiotic was given. Back was prepped and draped in usual fashion. Timeout was again performed. C-arm AP and lateral view was then taken. 2 C-arms were positioned in a way that L2 was centralized and superior endplate was parallel to the beams. Spinous process was centered between the pedicles. Point of entry was marked with skin marker. local anesthetic was injected subcutaneously. Small stab incision was placed to allow Jamshidi needle. The Jamshidi needle was then taken down up to the lateral edge of the pedicle seen on AP view and confirmed the lateral view. Jamshidi needle was then malleted into the bone up to the medial wall of the pedicle seen on AP view and confirmed on lateral view to be inside the body. This was then advanced to the posterior third of the vertebral bodies. This was done on both sides. Stylette was removed. Guidewire was placed. Drill was utilized to create a channel for the SpineJack. This drill was advanced up to the anterior third of the vertebral body. This was confirmed on AP and lateral views to be in a good position going towards the spinous process. SpineJack implant was then expanded under AP and lateral C-arm control to reduce the fracture and increased vertebral body height. Once maximal expansion was completed, Cement was mixed. Once the cement consistency was putty like, this was slowly inserted into the vertebral body through both SpineJack cannulas. AP lateral views were confirmed to make sure no cement extravasation occurs. Once adequate cement was placed, time was given to allow cement setting. SpineJack cannulas were then removed. Single 2-0 Vicryl stitches were taken in the subcutaneous space. Steri-Strips were applied along with 4 x 4 and Tegaderm. AP lateral views showed good cement fill. Patient was then taken to PACU in stable condition. I was present for the entire case. Surgical Findings: See operative note Project Management Engineer flanging operator: No Complications Complications: No Procedures Musculoskeletal [id number]: Other Procedure See Report
--- NOTE | 2024-01-25 17:10 | POSTOPAN2_ITS ---
Anesthesia Postop Eval I Sum Postop Eval Completion status Anesthesia document: Postop Eval 1 completed: Yes Anesthesia Postop Eval I Summary Anesthesia Postop Eval I Summary: Anesthesia Postop Eval I: Assessment Summary Airway patent Yes 01/25/24 16:06 DRIVER [email or web address] Spontaneous unlabored Yes 01/25/24 16:06 DRIVER SALES.[email or web address] respirations Mental status Awake,Calm 01/25/24 16:06 DRIVER [email or web address].[email or web address] nausea No 01/25/24 16:06 DRIVER SALES.GDOTT Vomiting No 01/25/24 16:06 DRIVER SALES.GDOTT Anesthesia Postop Eval I: Fluid Summary Crystalloid volume administer 700 01/25/24 16:06 DRIVER SALES.GDOTT (ml) Colloids volume administered ( ml) Blood Product volume administered (ml) Total IV fluid infused 700 01/25/24 16:06 DRIVER SALES.GDOTT Anesthesia Postop Eval I: Summary Notes Anesthesia Complication No 01/25/24 16:06 DRIVER SALES.GDOTT Anesthesia Complication Comment: Post-operative progress note Anesthesia: Postop Eval II Evaluation Mental status: Awake and Confused (Patient slightly agitated and confused. Will watch her in PACU until she is better.) Pain Level: 0 nausea: No Vomiting: No Complications Anesthesia Complication: No
--- NOTE | 2024-01-25 17:10 | PCM.POSTANE2 ---
Anesthesia Postop Eval I Sum Postop Eval Completion status Anesthesia document: Postop Eval 1 completed: Yes Anesthesia Postop Eval I Summary Anesthesia Postop Eval I Summary: Anesthesia Postop Eval I: Assessment Summary Airway patent Yes 01/25/24 16:06 STRAIGHT KNIFE MACHINE CUTTER.[email or web address] Spontaneous unlabored Yes 01/25/24 16:06 STRAIGHT KNIFE MACHINE CUTTER.GDOTT respirations Mental status Awake,Calm 01/25/24 16:06 STRAIGHT KNIFE MACHINE CUTTER.GDOTT nausea No 01/25/24 16:06 STRAIGHT KNIFE MACHINE CUTTER.GDOTT Vomiting No 01/25/24 16:06 STRAIGHT KNIFE MACHINE CUTTER.GDOTT Anesthesia Postop Eval I: Fluid Summary Crystalloid volume administer 700 01/25/24 16:06 STRAIGHT KNIFE MACHINE CUTTER.GDOTT (ml) Colloids volume administered ( ml) Blood Product volume administered (ml) Total IV fluid infused 700 01/25/24 16:06 STRAIGHT KNIFE MACHINE CUTTER.GDOTT Anesthesia Postop Eval I: Summary Notes Anesthesia Complication No 01/25/24 16:06 STRAIGHT KNIFE MACHINE CUTTER.GDOTT Anesthesia Complication Comment: Post-operative progress note Anesthesia: Postop Eval II Evaluation Mental status: Awake and Confused (Patient slightly agitated and confused. Will watch her in PACU until she is better.) Pain Level: 0 nausea: No Vomiting: No Complications Anesthesia Complication: No
[2024-01-25] MEDS: guaiFENesin 600 MG Tablet PO (21:52)
[2024-01-26] VITALS (7 sets, daily range): BP systolic 149–164; BP diastolic 57–66; PULSE 61–72; RESP 14–18; TEMP 36.5–36.6; O2SAT 93–96; BMI 32.1
[2024-01-26] MEDS: Acetaminophen 325 MG Tablet 650 MG PO ×3 (02:20→14:18)
--- NOTE | 2024-01-26 06:28 | NURSING ---
Pt refused vital signs this am.
[2024-01-26] MEDS: Albuterol 2.5 MG/3 ML VIAL.NEB. INHALATION ×2 (07:38→11:15)
--- NOTE | 2024-01-26 09:21 | CASEMGMT ---
Addendum entered by Lala Jones 01/26/24 15:55: TC received from pt dtr. She had pt and herself on speakerphone. Pt is aware that once the physician has agreed to follow [facility], [facility] will be in touch with her and be out within 48 hours. Pt and dtr state understanding. They are aware that [facility] was not notifying RN CM any further since pt was dc'd but they may call RN CM should there be any issues. Phone number provided. Addendum entered by Lala Jones 01/26/24 15:31: [facility] aware pt is going to her dtr's home in [place]. Addendum entered by Lala Jones 01/26/24 15:29: Received confirmation that [facility] can accept pt after Monday. Received tc from Yancy at [facility], they can accept pt and will start within 48 hours. They have reached out to pt PCP to verify the PCP will follow. TC to pt phone, no answer. TC to dtr's phone and left vm requesting returned call. Will notify [facility] that pt chose [facility] as they can start sooner as this was stated prior to pt dc'ing home. Addendum entered by Lala Jones 01/26/24 14:27: Pt nurse states pt would like to see RN MAE. RN MAE into pt room, pt states she would like to go home. She is aware that [facility] has not been secured yet but this RN MAE will call her at her dtr's home if she preferred. Pt states she wants to go home. RN CM to update pt today or tomorrow. Pt and dtr aware. Pt denies further needs at this time. Pt nurse updated. Addendum entered by Lala Jones 01/26/24 14:18: TC to [facility] at this time as referrals may not have been sent d/t technical issues. Spoke with intake, referral sent via fax at this time. Addendum entered by Lala Jones 01/26/24 11:51: Pt dtr came to desk and states that pt has chosen [facility] or [facility] based on who can accept and start soonest. Referrals sent to both agencies at this time via [facility]. Will await responses. Addendum entered by Lala Jones 01/26/24 09:37: Received tc back from [facility], they are not able to accept pt for care. CHASIDY WALL into pt room, provided pt with a list of [facility] providers including quality and resource use data and consistent with the patient?s preferred geographic region, medical needs, and insurance network were provided [facility]. Pt would like to wait until her other dtr Mariann comes in to all discuss the agency. They will put transmission calibration engineer light when an agency is decided on. Original Note: CHASIDY WALL into pt room, pt seen ambulating halls with therapy. Pt lying in bed in no distress with dtr at bedside. Pt will be going to pt dtr home at [address] [place] [address] Dr. [place], [place]. Discussed with pt having therapy, pt is agreeable as well as dtr. Pt had already chosen [facility] upon admission assessment and states she would still like this agency and denies need for a list of other options. TC to Marquita at [facility], referral made. SN not added as pt dtr is a nurse and pt and dtr deny need for this. Will await decision to accept.
[2024-01-26] MEDS: Polyethylene Glycol 3350 17 GM PACKET PO (09:52)
[2024-01-26] MEDS: guaiFENesin 600 MG Tablet PO (09:53)
[2024-01-26] MEDS: Aspirin 81 MG TAB.CHEW PO (09:53)
[2024-01-26] MEDS: Calcium Carb/Vitamin D 1 TABLET Tablet PO (09:53)
[2024-01-26] MEDS: Lidocaine 5% Patch 2 PATCH TOPICAL (09:53)
[2024-01-26] MEDS: Venlafaxine XR 75 MG Capsule 150 MG PO (09:53)
[2024-01-26] MEDS: Atenolol 50 MG Tablet PO (09:54)
[2024-01-26] MEDS: amLODIPine 2.5 MG Tablet PO (09:54)
[2024-01-26] MEDS: Gabapentin 400 MG Capsule PO ×2 (09:58→14:20)
[2024-01-26] MEDS: oxyCODONE 5 MG Tablet PO ×2 (09:59→14:19)
--- NOTE | 2024-01-26 10:14 | DS.PCM_ITS ---
Providers Date of Admission: 01/20/24 Primary Care Physician: Dr. Igor Pickering MD Consultations 01/20/24 01:24 Consult: Orthopedics Routine Consulting Provider: Luiz Redmond Reason for Consult: Fall, L2 comp fx EMERGENT Consult: No MD Notified: Yes Date Notified: 01/20/24 Time Notified: 00:11 Method of Notification: ED Physician Initiated Reason For Visit: FALL, L2 COMPRESSION FX Diagnosis Discharge Diagnosis (1) Compression fracture of L2 lumbar vertebra: Status: Acute Code(s): S32.020A - Wedge compression fracture of second lumbar vertebra, initial encounter for closed fracture Qualifiers: Encounter type: initial encounter Qualified Code(s): S32.020A - Wedge compression fracture of second lumbar vertebra, initial encounter for closed fracture Plan Acute L2 vertebral compression fracture * Noted on CAT scan from . MRI shows 50-60% loss of height of L2. * Consult placed to spine surgery for evaluation to see if patient may be a candidate for kyphoplasty. * 25-OH d level 83.6. No replacement necessary. * kyphoplasty cancelled 01/22 by CLOTHES MODEL. I discussed with Dr. Portillo, who evaluated pt post-op. He admitted that he did not check her pulse ox as she looked well. When pt was getting ready for surgery it was the CLOTHES MODEL who unilaterally cancelled the procedure as her pulse ox was 85% on room air and was coughing. * Unless there are new events, patient will be medically cleared to proceed with surgery on 01/24. I notified Dr. Redmond. Hypoxia * CXR on 01/22 reviewed was unremarkable. * Pt has known FELIPE (and uses CPAP), pulmonary HTN, COPD maybe a component of Obesity hypoventilation syndrome. * Pt has some crackles, so I suspect some atelectasis. That along with her other lung disease may have compounded her situation. I do not anticipate a worsening respiratory status at this time. Though I continued to recommend ongoing use of IS. Will add mucinex. VTE prophylaxis: LMWH DW patient's dtr at bedside. Dispostion: plan to monitor pt overnight post kyphoplasty, if she does well, then hopefully she can be discharged to home with her dtr in AM. Medications at Discharge Home Medications albuterol sulfate 90 mcg/actuation aerosol inhaler 2 puff inhalation Q6H PRN PRN Shortness Of Breath 01/27/15 aspirin 81 mg chewable tablet 81 mg PO DAILY@0800 01/27/15 calcium carbonate 600 mg PO BID 01/27/15 cholecalciferol (vitamin D3) 25 mcg (1,000 unit) tablet 3,000 unit PO DAILY 01/27/15 polyvinyl alcohol-povidone (PF) 1.4 %-0.6 % eye drops in a dropperette 1 ea EACH EYE DAILY PRN dry eyes 01/27/15 acetaminophen 325 mg tablet 650 mg (2 x 325 mg) PO Q6H PRN PRN Mild Pain (scale 0-3)/T>100.7 #0 tabs 04/14/16 docusate sodium 100 mg capsule 100 mg PO BID PRN Constipation 01/20/19 multivitamin-ferrous fumarate-folic acid 18 mg-400 mcg tablet 1 ea PO DAILY 01/20/19 amlodipine 5 mg tablet 2.5 mg PO DAILY 03/05/19 atenolol 50 mg tablet 50 mg PO DAILY 03/05/19 venlafaxine 150 mg tablet,extended release 24 hr 150 mg PO DAILY 09/15/21 gabapentin 400 mg capsule 400 mg PO TIDCM #90 caps 01/26/24 guaifenesin 600 mg tablet, extended release 12 hr (Mucinex) 600 mg PO BID #10 tabs 01/26/24 lidocaine 5 % topical patch 2 patch topical DAILY #30 ea 01/26/24 oxycodone 5 mg tablet 5 mg PO Q4H PRN PRN Pain Score 4-10 3 days #18 tabs 01/26/24 Hospital Course Operations - (kyphoplasty) Summary of Care Provided Hospital Course: Patient presents with back pain and was found to have L2 compression fracture. Patient was planned to have a kyphoplasty on the but patient was noted to be hypoxic 85% on room air with cough. Anesthesia canceled the procedure. Patient was monitored and remained stable. Patient was placed back on bronchodilators and has done well. Patient had the kyphoplasty performed on the and tolerated the procedure well. Patient will be discharged home with home care and patient will be living with her daughter. Weight / BMI Weight Weight: 79.8 kg Body Mass Index (BMI) 32.1 ABG / Lab / Microbiology Data 01/20/24 06:19 01/20/24 06:19 Radiography Diagnostic Testing: Radiology Impression Lumbar Spine X-Ray 01/25/24 14:45 IMPRESSION: Fluoroscopic guided kyphoplasty of L2 Electronically Signed: Kole Kim MD at 16:42 EST Reading Location ID and State: [facility] / [place] Tel , Service support , D/C Instructions Discharge Diet: No restrictions DC O2, CPAP, BIPAP Needs Additional Home O2 Discharge instructions: No DC home with Oxygen: No Meaningful Use Info Meaningful Use Meaningful Use Diagnoses (Choose all that apply): None applicable Ischemic Stroke Statin Dosing Therapy Reference: STATIN DOSE THERAPY REFERENCE: * Patients > 75 years receive moderate or high dose statin therapy. * Patients 75 years or YOUNGER should receive HIGH intensity statin dose unless contraindicated. You will be required to document reason for non-treatment if statin daily dose does not meet guidelines. HIGH DOSE STATIN THERAPY DAILY Atorvastatin > than or = to 40 mg Rosuvastatin > than or = to 20 mg Amlodipine + Atorvastatin > than or = to 2.5/40 mg Ezetimibe + Simvastatin 10/80 mg Simvastatin 80mg Discharge Plan Admission Admit Date/Time: 01/20/24 00:11 Primary Reason for Your Visit: Vertebral fracture. Attending Provider: Cal Costelol Primary Care Provider: Igor Pickering Consulting Providers: Luiz Redmond; Mee Jones; Stephane Victoria Discharge Orders/Prescriptions Prescriptions: New gabapentin 400 mg Capsule 400 mg PO TIDCM Qty: 90 0RF lidocaine 5 % Adhesive Patch,Medicated 2 patch topical DAILY Qty: 30 0RF Protocol: *Topical Application Instructions APPLICATION INSTRUCTIONS: lumbar spine affected region guaifenesin [Mucinex] 600 mg Tablet Extended Release 12hr 600 mg PO BID Qty: 10 0RF oxycodone 5 mg Tablet 5 mg PO Q4H PRN PRN (Reason: Pain Score 4-10) 3 Days Qty: 18 0RF Continued amlodipine 5 mg tablet 2.5 mg PO DAILY atenolol 50 mg tablet 50 mg PO DAILY venlafaxine 150 mg tablet extended release 24hr 150 mg PO DAILY calcium carbonate 600 MG tablet 600 mg PO BID Patient Comments: SUPPLEMENT aspirin 81 MG tablet,chewable 81 mg PO DAILY@0800 Patient Comments: heart health - has not restarted since OR last week albuterol sulfate 1 PUFF inhaler 2 puff inhalation Q6H PRN PRN (Reason: Shortness Of Breath) Patient Comments: breathing polyvinyl alcohol-povidon(PF) 1 EACH dropperette 1 ea EACH EYE DAILY PRN (Reason: dry eyes) Patient Comments: DRY EYES cholecalciferol (vitamin D3) 1,000 UNIT tablet 3,000 unit PO DAILY Patient Comments: supplement acetaminophen 325 MG tablet 650 mg PO Q6H PRN PRN (Reason: Mild Pain (scale 0-3)/T>100.7) Qty: 0 0RF jzobaaanqyof-whdy-jrcjn acid 1 EACH tablet 1 ea PO DAILY docusate sodium 100 MG capsule 100 mg PO BID PRN (Reason: Constipation) Patient Comments: prevent constipation Discontinued gabapentin 300 mg capsule 300 mg PO TID Referrals / Follow Up: Igor Pickering MD [Primary Care Provider] - Within 2 Weeks Disposition Disposition (needs filled in before D/C Order can be placed): Home Health Service
--- NOTE | 2024-01-26 11:34 | PHA.DC.MC.R ---
Pharmacy [facility] has performed discharge medication reconciliation and counseling for this patient. The patient's discharge medication list was reviewed for discrepancies and discrepancies were resolved. The patient was counseled on the following discharge medications and changes in medications for homegoing were reviewed. The Reason for Use, instructions for use, and potential side effects were reviewed for all new medications. The patient's questions regarding all of their medications were answered. 1. Gabapentin 400 mg PO TID 2. Guaifenesin 600 mg PO Q12H 3. Lidocaine 5% patch 2 patches topically daily 4. Oxycodone 5 mg PO Q4H PRN pain The patient was able to verbally demonstrate an understanding of their discharge medications. The patient was counselled on new medications by on call pharmacy technician Diogo. Medications at Discharge Home Medications albuterol sulfate 90 mcg/actuation aerosol inhaler 2 puff inhalation Q6H PRN PRN Shortness Of Breath 01/27/15 aspirin 81 mg chewable tablet 81 mg PO DAILY@0800 01/27/15 calcium carbonate 600 mg PO BID 01/27/15 cholecalciferol (vitamin D3) 25 mcg (1,000 unit) tablet 3,000 unit PO DAILY 01/27/15 polyvinyl alcohol-povidone (PF) 1.4 %-0.6 % eye drops in a dropperette 1 ea EACH EYE DAILY PRN dry eyes 01/27/15 acetaminophen 325 mg tablet 650 mg (2 x 325 mg) PO Q6H PRN PRN Mild Pain (scale 0-3)/T>100.7 #0 tabs 04/14/16 docusate sodium 100 mg capsule 100 mg PO BID PRN Constipation 01/20/19 multivitamin-ferrous fumarate-folic acid 18 mg-400 mcg tablet 1 ea PO DAILY 01/20/19 amlodipine 5 mg tablet 2.5 mg PO DAILY 03/05/19 atenolol 50 mg tablet 50 mg PO DAILY 03/05/19 venlafaxine 150 mg tablet,extended release 24 hr 150 mg PO DAILY 09/15/21 gabapentin 400 mg capsule 400 mg PO TIDCM #90 caps 01/26/24 guaifenesin 600 mg tablet, extended release 12 hr (Mucinex) 600 mg PO BID #10 tabs 01/26/24 lidocaine 5 % topical patch 2 patch topical DAILY #30 ea 01/26/24 oxycodone 5 mg tablet 5 mg PO Q4H PRN PRN Pain Score 4-10 3 days #18 tabs 01/26/24
--- NOTE | 2024-01-26 12:44 | PCM.PN.ORT ---
Subjective Subjective Postop day 1 status post L2 spine mary lou cement augmentation. Patient doing well comfortable in bed. Able to side turn without significant difficulty now. Objective Data Objective Data Vital Signs: Vital Signs Temp Pulse Resp BP Pulse Ox O2 Del Method O2 Flow Rate 97.7 F L 69 18 154/65 H 94 Room Air 2 01/26/24 10:12 01/26/24 11:16 01/26/24 11:16 01/26/24 10:12 01/26/24 10:12 01/26/24 10:12 01/25/24 21:41 Oxygen Flow Rate (L/min) 2 Oxygen Delivery Method Room Air Weight: 175 lb 14.862 oz Body Mass Index (BMI) 32.1 Intake & Output: Intake and Output for Last 24 Hours 01/24/24 01/25/24 01/26/24 23:59 23:59 23:59 Intake Total 1350 / 1350 240 / 240 500 / 500 Output Total 700 / 700 700 / 700 500 / 500 Balance 650 / 650 -460 / -460 0 / 0 Lab / Micro Data 01/20/24 06:19 01/20/24 06:19 Radiography Diagnostic Testing: Radiology Impression Lumbar Spine X-Ray 01/25/24 14:45 IMPRESSION: Fluoroscopic guided kyphoplasty of L2 Electronically Signed: Kole Kim MD at 16:42 EST Reading Location ID and State: [facility] / [place] Tel , Service support , Physical Exam Narrative Examination the back shows dressing well-maintained. CDI. Neurovascular exam of lower extremity shows 5 x 5 power normal shows normal sensations in all dermatomes. Assessment & Plan Assessment/Plan (1) Compression fracture of L2 lumbar vertebra: QUALIFIERS: Encounter type: sequela Qualified Code(s): S32.020S - Wedge compression fracture of second lumbar vertebra, sequela PLAN: Plan Postop day 1 status post L2 spine mary lou cement augmentation. Patient doing well. Appears that she is going home with home PT. She will follow-up with us in clinic and orthopedics in 2 weeks for upright x-ray evaluation. Encouraged out of bed mobility multiple times a day and upright seated position to help with her breathing. Patient was in agreement.
== END 2024-01-26 15:12 | disposition home health service (06) | DRG 516 ==
LOC: ED 01-20 00:09 → MS3 01-20 00:22
PROVIDERS: Orthopaedic Surgery Orthopaedic Surgery of the Spine; Admitting Provider Family Medicine; Emergency Provider Emergency Medicine; PCP Family Medicine
PROC: 0QU03JZ Supplement Lumbar Vertebra with Synthetic Substitute, Percutaneous Approach (ICD-10-PCS; principal; 2024-01-25 13:45)
DX: M80.08XA Age-related osteoporosis with current pathological fracture, vertebra(e), initial encounter for fracture (principal); E66.2 Morbid (severe) obesity with alveolar hypoventilation; J98.11 Atelectasis; I27.20 Pulmonary hypertension, unspecified; R62.7 Adult failure to thrive; J44.9 Chronic obstructive pulmonary disease, unspecified; F32.A Depression, unspecified; I10 Essential (primary) hypertension; S70.01XA Contusion of right hip, initial encounter; F41.9 Anxiety disorder, unspecified; M47.26 Other spondylosis with radiculopathy, lumbar region; M51.16 Intervertebral disc disorders with radiculopathy, lumbar region; W06.XXXA Fall from bed, initial encounter; S06.0X0A Concussion without loss of consciousness, initial encounter; Z79.82 Long term (current) use of aspirin; Z82.3 Family history of stroke; R09.02 Hypoxemia; R29.6 Repeated falls; Z99.89 Dependence on other enabling machines and devices; Z68.32 Body mass index [BMI] 32.0-32.9, adult
CPT/HCPCS: 36415; 70450; 71045; 72100; 72131; 72148; 73502; 76000; 80048; 80053; 81001; 82306; 85025; 93005; 94640; 94668; 94762; 97110; 97116; 97162; 97165; 97530; 97535; 99252; 99285; J7030; J7120; A4216; G0463; J2405

== ENCOUNTER 2024-02-28 11:56 | Emergency (ER) | payer MEDICARE, OTHER, SELFPAY ==
[2024-02-28 11:58] VITALS: BP 176/64; PULSE 65; RESP 18; TEMP 36.5; O2SAT 99
--- NOTE | 2024-02-28 12:09 | CT_ITS ---
EXAM: CT HEAD WITHOUT INTRAVENOUS CONTRAST CLINICAL INDICATION: Fall injury. TECHNIQUE: Multiple axial images were obtained of the head without intravenous contrast. This CT exam was performed using one or more of the following dose reduction techniques: automated exposure control, adjustment of the mA and/or kV according to patient size, and/or use of iterative reconstruction technique. RADIATION DOSE: CTDIvol = 44.99 mGy, DLP = 829.85 mGy-cm COMPARISON: CT head without contrast 01/19/2024. FINDINGS: BRAIN AND EXTRA-AXIAL SPACES: Hypodensities in the anterior end posterior periventricular white matter due to chronic ischemic changes. No intra- or extra-axial hemorrhage. No intracranial mass or mass effect. Posterior fossa structures are unremarkable. No hydrocephalus. Basal cisterns are patent. BONES/JOINTS: Unremarkable. No discrete lytic or blastic abnormalities. VASCULATURE: Calcified plaques in the cavernous segments of the carotid arteries intradural segments of both vertebral arteries. SINUSES: Unremarkable as visualized. Clear. MASTOID AIR CELLS: Unremarkable. Clear. ORBITS: Visualized globes, extraocular muscles, optic nerves and retrobulbar fat appear unremarkable. CT/Brain/Head without Contrast IMPRESSION: 1. No acute findings in the head/brain. 2. Chronic periventricular white matter ischemic changes in both cerebral hemispheres. 3. No interval change. Electronically Signed: Juvenal Hannon MD at 13:11 EST ,
--- NOTE | 2024-02-28 12:09 | CT_ITS ---
EXAM: CT ABDOMEN AND PELVIS WITHOUT INTRAVENOUS CONTRAST CLINICAL INDICATION: Fall injury. Right hip and back pain. History of kyphoplasty. TECHNIQUE: Helically acquired images were obtained of the abdomen and pelvis without intravenous contrast. This CT exam was performed using one or more of the following dose reduction techniques: automated exposure control, adjustment of the mA and/or kV according to patient size, and/or use of iterative reconstruction technique. RADIATION DOSE: CTDIvol = 22.21 mGy, DLP = 1143.13 mGy-cm COMPARISON: CT chest 2 11/23/2014. CT abdomen and pelvis without contrast 12/22/2014. FINDINGS: LOWER THORAX: Unremarkable. Lung bases are clear. No cardiomegaly. No significant pericardial effusion. ABDOMEN: LIVER: Unremarkable. Homogeneous. GALLBLADDER AND BILE DUCTS: Unremarkable. No calcified gallstones. No gallbladder distention or wall edema. No intra- or extrahepatic biliary ductal dilation. PANCREAS: Unremarkable. No focal cystic mass. SPLEEN: Unremarkable. Normal size without focal cystic or solid mass. ADRENALS: Unremarkable. No nodules. KIDNEYS AND URETERS: Prominent left extrarenal pelvis. No stones or hydronephrosis in both kidneys. STOMACH AND BOWEL: Multiple diverticula along the sigmoid colon and fewer diverticula in the lower descending colon but no acute diverticulitis. No stomach. Normal small bowel. PELVIS: APPENDIX: The appendix is not visualized but no secondary signs of appendicitis. BLADDER: Unremarkable. REPRODUCTIVE: Unremarkable as visualized. No mass. ABDOMEN and PELVIS: INTRAPERITONEAL SPACE: Unremarkable. No ascites or other fluid collection. No free air. BONES/JOINTS: Mild acute compression fracture across the upper L1 vertebral body causing increased T12-L1 central disc space height. Old compression fracture of the L2 vertebral body contains PMMA casts from kyphoplasty. No suspicious lytic or blastic abnormality. SOFT TISSUES: Unremarkable. No discrete abdominal or pelvic wall hernia. VASCULATURE: Vascular calcifications of the abdominal aorta, iliac arteries and splenic artery. Mild left lateral bulging of the lateral wall of the abdominal aorta and the lower L3 vertebral body level with a diameter of 2.4 cm. LYMPH NODES: Unremarkable. No enlarged lymph nodes. CT/Abdomen/Pelvis without Cont IMPRESSION: 1. Mild acute compression fracture across the upper L1 vertebral body. 2. Old compression fracture of the L2 vertebral body contains PMMA casts from previous kyphoplasty. 3. Mild left lateral bulging of the abdominal aortic wall with a transverse canal diameter of 2.4 cm. 4. Prominent left extrarenal pelvis but no stones or hydronephrosis in the left kidney and right kidney. There is improvement of left hydronephrosis when compared to 12/22/2014. 5. Diverticulosis along the sigmoid colon more than lower descending colon but no acute diverticulitis. Electronically Signed: Juvenal Hannon MD at 13:23 EST ,
--- NOTE | 2024-02-28 12:10 | EX.ED.GENINJ ---
HPI History of Present Illness Chief Complaint: Fall Detail of Chief Complaint: Fall with back and right hip injury Informant: patient and family Narrative Narrative: Patient presents to the emergency department via EMS from home after sustaining a fall. Patient presents via squad with her daughter. Patient apparently was let the dog out when she lost her balance and fell injuring her right hip and her back. Patient apparently had kyphoplasty related to a fall and L2 fracture within the last month. The kyphoplasty procedure was performed here at [place] with Dr. Belle. Patient does not know if she hit her head but had no loss of consciousness. She is not anticoagulated. She denies neck pain. She denies chest pain or abdominal pain. Patient normally had been walking with a walker but today tried to go a short distance without when she fell. [facility] Medical History Elevated blood pressure reading with diagnosis of hypertension HTN (hypertension) Diverticulosis Asthma FELIPE on CPAP Pulmonary hypertension SVT (supraventricular tachycardia) Essential hypertension Anemia Orthostatic hypotension Syncope Home Medications ?Medication ?Instructions ?Recorded ?Last Taken ?Type albuterol sulfate 90 mcg/actuation 2 puff inhalation Q6H PRN PRN 01/27/15 Unknown History aerosol inhaler Shortness Of Breath aspirin 81 mg chewable tablet 81 mg PO DAILY@0800 01/27/15 03/24/16 History calcium carbonate 600 mg PO BID 01/27/15 04/12/16 History cholecalciferol (vitamin D3) 25 3,000 unit PO DAILY 01/27/15 04/12/16 History mcg (1,000 unit) tablet polyvinyl alcohol-povidone (PF) 1 ea EACH EYE DAILY PRN dry eyes 01/27/15 Unknown History 1.4 %-0.6 % eye drops in a dropperette acetaminophen 325 mg tablet 650 mg (2 x 325 mg) PO Q6H PRN PRN 04/14/16 Unknown Rx Mild Pain (scale 0-3)/T>100.7 #0 tabs docusate sodium 100 mg capsule 100 mg PO BID PRN Constipation 01/20/19 Unknown History multivitamin-ferrous 1 ea PO DAILY 01/20/19 Unknown History fumarate-folic acid 18 mg-400 mcg tablet amlodipine 5 mg tablet 2.5 mg PO DAILY 03/05/19 Unknown History atenolol 50 mg tablet 50 mg PO DAILY 03/05/19 Unknown History venlafaxine 150 mg tablet,extended 150 mg PO DAILY 09/15/21 Unknown History release 24 hr gabapentin 400 mg capsule 400 mg PO TIDCM #90 caps 01/26/24 Unknown Rx lidocaine 5 % topical patch 2 patch topical DAILY #30 ea 01/26/24 Unknown Rx ascorbate calcium (vitamin C) 500 500 mg PO QDAY 02/12/24 Unknown History mg tablet oxybutynin chloride 10 mg 10 mg PO QDAY 02/12/24 Unknown History tablet,extended release 24 hr oxycodone-acetaminophen 5 mg-325 1 tab PO Q8H PRN pain 3 days #10 02/28/24 Unknown Rx mg tablet (Percocet) tabs Allergy/AdvReac Type Severity Reaction Status Date / Time alendronate sodium AdvReac Nausea Verified 02/28/24 12:01 lisinopril AdvReac HEADACHES/I Verified 02/28/24 12:01 TCHY losartan (From Cozaar) AdvReac sensitivity Verified 02/28/24 12:01 Family History Mother Diabetes CVA (cerebral vascular accident) Alzheimer disease Grandfather CVA (cerebral vascular accident) Sister Cancer Breast Grandmother Cancer Ovarian Surgical History History of bilateral cataract extraction pyeloplasty History of breast biopsy History of tonsillectomy History of total hysterectomy History of section History of appendectomy Social History Smoking Status: Never smoker alcohol intake: never substance use type: does not use caffeine: No ROS ROS ED Review of Systems ROS Unobtainable: other Constitutional Constitutional ED: Reports lethargy; Denies chills, fever(s), sweats or weight loss Eyes Eyes: Denies blurry vision, change in vision or diplopia ENT ENT ED: Denies rhinorrhea or sore throat Cardiovascular Cardiovascular: Denies chest pain, orthopnea or racing heartbeat Respiratory/Chest Respiratory/Chest: Denies cough, dyspnea, dyspnea on exertion, orthopnea or sputum Gastrointestinal Gastrointestinal: Denies abdominal pain, diarrhea, nausea or vomiting Genitourinary Genitourinary ED: Denies dysuria, hematuria or urinary frequency Musculoskeletal Musculoskeletal: Reports back pain and other Details: Right hip pain ; Denies arthralgias, myalgias or neck pain Integumentary Denies abscess, Abrasions or rash Neurologic Neurologic: Denies headache(s) or weakness Psychiatric Psychiatric: Denies anxiety, depression or suicidal thoughts Endocrine Endocrinology: Denies polydipsia, polyphagia or polyuria Hematologic/Lymphatic Hematologic/Lymphatic: Denies easy bleeding, easy bruising or lymphadenopathy Allergic/Immunologic Allergic/Immunologic ED: Denies mouth swelling, tongue swelling or urticaria EXAM Physical Exam Const Vital Signs: 02/28/24 11:58 02/28/24 12:09 Temperature 97.7 F L Temperature Source Oral Pulse Rate 65 Respiratory Rate 18 Respiratory Effort Normal Non-Labored Respiratory Depth Normal Respiratory Pattern Normal Blood Pressure 176/64 H Blood Pressure Mean 101 Pulse Ox 99 Oxygen Delivery Method Room Air Positive well nourished and well developed General Appearance ED: well developed and NAD HEENT Reports TM's clear and moist mucous membranes normocephalic and atraumatic; Negative for trauma or tenderness Tympanic Membrane ED: Yes TM's clear Eyes PERRL and EOMs intact bilaterally General Eye ED: Negative for pale conjunctiva or scleral icterus Neck no lymphadenopathy, supple and no JVD General: Negative for tenderness Chest Wall inspection of chest normal and palpation of chest normal Chest: Negative for tenderness Resp normal respiratory effort and clear to auscultation bilaterally Effort and Inspection: Negative for respiratory distress or pain with movement Auscultation: Negative for rhonchi, wheezes or diminished lung sounds Cardio regular rate, regular rhythm, S1 normal heart sound, S2 normal heart sound and no murmurs Peripheral Pulses: pulses 2+ throughout GI normal to inspection, nondistended, normoactive bowel sounds, soft to palpation, non-tender, non-distended and no masses Back/Spine no CVA tenderness and no thoracic nor lumbar tenderness Back/Spine Narrative: Patient has diffuse tenderness palpation of the lumbar spine. No bony step-offs or depressions noted. Extremity Extremity Narrative: Patient with some mild tenderness over the right hip. There is no shortening or rotational deformity noted. No significant pain with straight leg raising. General Extremety ED: Negative for edema General Extremity: Negative for edema Neuro oriented x3, CN's II-XII intact bilaterally, no sensory deficits noted and gait normal Sensorium / Orientation: awake, alert, oriented to person, oriented to place and oriented to time Motor Exam: strength 5/5 throughout and strength abnormal Psych mental status grossly normal Skin no rashes or lesions noted and no wounds MDM MDM MDM Narrative Medical decision making narrative: Patient presents with a mechanical fall and complaining of pain in her back. Recent kyphoplasty within the last month. Kyphoplasty at L2 related to prior fall. Clinically she looks well. No external evidence of trauma to her head. Initially did not complain of neck pain and exam was benign. I did obtain a CT scan of the brain without contrast that was unremarkable. CT of the C-spine obtained showed no cervical fractures however there was mild acute compression wedge type fracture of T1 and T2. On repeat exam she has just minimal discomfort in this area. CT scan of the abdomen pelvis obtained showed old compression fracture at L2 but also new mild compression fracture of L1. Patient was medicated with morphine and Zofran and had good pain relief. This point she will be discharged to home with a prescription for [place]. Advised to follow-up with Dr. Belle her back specialist within next 3 to 5 days. CBC with differential and chemistries were unremarkable. I discussed results with patient and her daughter and they are comfortable going home and they feel they can care for her at home and not asking for admission. Lab Data Attestation: I reviewed the patient's lab results. Labs: Laboratory Results - last 24 hr 02/28/24 12:30 WBC 5.0 RBC 3.85 L Hgb 11.4 L Hct 34.2 L MCV 88.8 MCH 29.6 MCHC 33.3 RDW Std Deviation 47.0 H RDW Coeff of Ujvencio 14.6 Plt Count 186 MPV 10.1 Immature Gran % (Auto) 1.400 H Neut % (Auto) 72.0 H Lymph % (Auto) 13.3 L Divide % (Auto) 13.3 H Eos % (Auto) 0.0 Baso % (Auto) 0.0 Absolute Neuts (auto) 3.6 Absolute Lymphs (auto) 0.67 L Nucleated RBC % 0 Sodium 138 Potassium 3.3 L Chloride 105 Carbon Dioxide 26.0 Anion Gap 7 BUN 14 Creatinine 0.72 Estim Creat Clear Calc 53.01 Est GFR (MDRD) Af Amer 100 Est GFR (MDRD) Non-Af 82 BUN/Creatinine Ratio 19.4 Glucose 114 H Calcium 9.7 Radiography Diagnostic Testing: Clinical Impression(s) from Imaging Studies Abdomen/Pelvis CT 02/28/24 12:09 IMPRESSION: 1. Mild acute compression fracture across the upper L1 vertebral body. 2. Old compression fracture of the L2 vertebral body contains PMMA casts from previous kyphoplasty. 3. Mild left lateral bulging of the abdominal aortic wall with a transverse canal diameter of 2.4 cm. 4. Prominent left extrarenal pelvis but no stones or hydronephrosis in the left kidney and right kidney. There is improvement of left hydronephrosis when compared to 12/22/2014. 5. Diverticulosis along the sigmoid colon more than lower descending colon but no acute diverticulitis. Electronically Signed: Juvenal Hannon MD at 13:23 EST , Brain CT 02/28/24 12:09 IMPRESSION: 1. No acute findings in the head/brain. 2. Chronic periventricular white matter ischemic changes in both cerebral hemispheres. 3. No interval change. Electronically Signed: Juvenal Hannon MD at 13:11 EST , Cervical Spine CT 02/28/24 12:49 IMPRESSION: 1. Mild anterior wedge compression fractures of the upper T1 and upper T2 vertebral bodies. These were not present on comparison CT cervical spine of 01/27/2022. 2. No suspicious acute fractures of the cervical spine. 3. Minimal degenerative anterolisthesis of C4 on C5 is unchanged. 4. No CT evidence of cervical extruded disc fragment although limited by the absence of intrathecal contrast. Electronically Signed: Juvenal Hannon MD at 13:30 EST , ADDENDUM: 02/28/24 1351 IMPRESSION: 1. Mild anterior wedge compression fractures of the upper T1 and upper T2 vertebral bodies. These were not present on comparison CT cervical spine of 01/27/2022. 2. No suspicious acute fractures of the cervical spine. 3. Minimal degenerative anterolisthesis of C4 on C5 is unchanged. 4. No CT evidence of cervical extruded disc fragment although limited by the absence of intrathecal contrast. N.B. : The above Results were Read Back by Juvenal Hannon MD to Yamil Orr DO, and understanding confirmed on 02/28/2024 13:44:17 (ET). Electronically Signed: Juvenal Hannon MD at 13:30 EST , Discharge Plan Triage Chief Complaint: Fall ED Provider: Yamil Orr Dx/Rx/DC Orders Clinical Impression: Compression fracture Instructions: Compression Fx Prescriptions: New oxycodone-acetaminophen [Percocet] 5-325 mg tablet 1 tab PO Q8H PRN (Reason: pain) 3 Days Qty: 10 0RF No Action amlodipine 5 mg tablet 2.5 mg PO DAILY atenolol 50 mg tablet 50 mg PO DAILY venlafaxine 150 mg tablet extended release 24hr 150 mg PO DAILY ascorbate calcium (vitamin C) 500 mg tablet 500 mg PO QDAY oxybutynin chloride 10 mg tablet extended release 24hr 10 mg PO QDAY calcium carbonate 600 MG tablet 600 mg PO BID Patient Comments: SUPPLEMENT aspirin 81 MG tablet,chewable 81 mg PO DAILY@0800 Patient Comments: heart health - has not restarted since OR last week albuterol sulfate 1 PUFF inhaler 2 puff inhalation Q6H PRN PRN (Reason: Shortness Of Breath) Patient Comments: breathing polyvinyl alcohol-povidon(PF) 1 EACH dropperette 1 ea EACH EYE DAILY PRN (Reason: dry eyes) Patient Comments: DRY EYES cholecalciferol (vitamin D3) 1,000 UNIT tablet 3,000 unit PO DAILY Patient Comments: supplement acetaminophen 325 MG tablet 650 mg PO Q6H PRN PRN (Reason: Mild Pain (scale 0-3)/T>100.7) Qty: 0 0RF znmshjekfabm-eyft-vrixn acid 1 EACH tablet 1 ea PO DAILY docusate sodium 100 MG capsule 100 mg PO BID PRN (Reason: Constipation) Patient Comments: prevent constipation gabapentin 400 mg Capsule 400 mg PO TIDCM Qty: 90 0RF lidocaine 5 % Adhesive Patch,Medicated 2 patch topical DAILY Qty: 30 0RF Protocol: *Topical Application Instructions APPLICATION INSTRUCTIONS: lumbar spine affected region Primary Care Provider: Gris Maurer Referrals: Gris Maurer, STEPHEN [Primary Care Provider] - Luiz Redmond MD [Med Staff - Active Staff] - 3-5 Days Print Language: [place] Disposition Disposition: Home, Self Care
[2024-02-28] MEDS: Ondansetron 4 MG/2 ML Vial IV (12:35)
[2024-02-28] MEDS: Morphine 4 MG/ML Syringe IV (12:36)
[2024-02-28 12:37] LABS: Absolute Lymphocyte Count 0.67 X10^3/uL (0.83-4.51); Absolute Neutrophil Count 3.6 X10^3/uL (2.0-7.7); Hematocrit 34.2 % (37-47); Hemoglobin 11.4 g/dL (12.0-15.0); Lymphocyte # 0.67 X10^3/ul (0.83-4.51); Lymphocyte % 13.3 % (19-41); Mean Corp Hgb Conc 33.3 g/dL (32-36); Mean Corpuscular Hgb 29.6 pg (27.0-32.0); Mean Corpuscular Volume 88.8 fL (81-99); Mean Platelet Vol. 10.1 fl (6.2-12.0); Monocyte# 0.67 X10^3/uL; Monocyte% 13.3 % (0-10); NRBC Flagged by Analyzer 0 % (0-5); Neutrophil # 3.62 X10^3/uL (2.7-7.7); Platelet Count 186 K/mm3 (150-450); RBC Distribution Width CV 14.6 % (11.6-14.6); Red Blood Count 3.85 M/mm3 (4.2-5.4)
--- NOTE | 2024-02-28 12:49 | CT_ITS ---
We are attempting to reach an attending provider to discuss findings. An addendum with communication details will be sent when the communication is complete. EXAM: CT CERVICAL SPINE WITHOUT INTRAVENOUS CONTRAST CLINICAL INDICATION: Fall related trauma injury. TECHNIQUE: Helically acquired images were obtained of the cervical spine without intravenous contrast. 2D reformatted images were reviewed. This CT exam was performed using one or more of the following dose reduction techniques: automated exposure control, adjustment of the mA and/or kV according to patient size, and/or use of iterative reconstruction technique. RADIATION DOSE: CTDIvol = 18.67 mGy, DLP = 374.13 mGy-cm COMPARISON: CT cervical spine without contrast 01/27/2022. FINDINGS: VERTEBRAE: Mild anterior wedge compression fractures of upper T1 and T2 vertebral bodies. No acute fractures of the bodies and posterior osseous elements of the cervical spine. Ankylosis of the right C3 facet joint. Partial ankylosis of the C2-C3 facet joints. Ankylosis of the left C5-C6 facet joint. Minimal degenerative anterolisthesis of C4 on C5. No discrete lytic or blastic abnormality. DISCS/SPINAL CANAL/NEURAL FORAMINA: Moderate C5-C6 disc space height narrowing is unchanged. Normal remaining cervical disc space heights. Normal central canal and intervertebral neuroforamina. SOFT TISSUES: Unremarkable. No prevertebral soft tissue swelling. LYMPH NODES: Unremarkable. No cervical adenopathy. LUNG APICES: Unremarkable as visualized. Clear. CT/Spine Cervical without Contras IMPRESSION: 1. Mild anterior wedge compression fractures of the upper T1 and upper T2 vertebral bodies. These were not present on comparison CT cervical spine of 01/27/2022. 2. No suspicious acute fractures of the cervical spine. 3. Minimal degenerative anterolisthesis of C4 on C5 is unchanged. 4. No CT evidence of cervical extruded disc fragment although limited by the absence of intrathecal contrast. Electronically Signed: Juvenal Hannon MD at 13:30 EST ,
[2024-02-28 12:52] LABS: Anion Gap 7 (5-15); BUN 14 mg/dL (7-18); BUN/Creat Ratio 19.4 RATIO (10-20); Calcium,Total 9.7 mg/dL (8.5-10.1); Chloride 105 mmol/L (98-107); Creatinine, Serum 0.72 mg/dL (0.55-1.02); EST Glomerular Filtration Rate 82 mL/min (>60); Est Glom Filt Rate - Afr Amer 100 mL/min (>60); Estimated Creatinine Clearance 53.01 ml/min; Glucose 114 mg/dL (74-106); Potassium 3.3 mmol/L (3.5-5.1); Sodium Level 138 mmol/L (136-145)
[2024-02-28 14:31] VITALS: BP 134/69; PULSE 82; RESP 15; TEMP 36.4; O2SAT 99
== END 2024-02-28 15:42 | disposition home or self-care (01) ==
PROVIDERS: Emergency Provider Emergency Medicine; PCP Clinical Nurse Specialist Adult Health; Visit Provider Emergency Medicine
DX: S22.010A Wedge compression fracture of first thoracic vertebra, initial encounter for closed fracture (principal); S22.020A Wedge compression fracture of second thoracic vertebra, initial encounter for closed fracture; I10 Essential (primary) hypertension; W18.39XA Other fall on same level, initial encounter; Y92.009 Unspecified place in unspecified non-institutional (private) residence as the place of occurrence of the external cause; G47.33 Obstructive sleep apnea (adult) (pediatric); Z99.89 Dependence on other enabling machines and devices; Z79.82 Long term (current) use of aspirin; Z79.899 Other long term (current) drug therapy; Z98.41 Cataract extraction status, right eye; Z98.42 Cataract extraction status, left eye; Z90.710 Acquired absence of both cervix and uterus; Z90.49 Acquired absence of other specified parts of digestive tract
CPT/HCPCS: 70450; 72125; 74176; 80048; 85025; 96374; 96375; 99285; A4216; J2405

== ENCOUNTER → 2024-05-28 | Outpatient (REF) | payer MEDICARE, OTHER, SELFPAY ==
[2024-05-28 09:14] LABS: Absolute Lymphocyte Count 1.59 X10^3/uL (0.83-4.51); Absolute Neutrophil Count 1.7 X10^3/uL (2.0-7.7); Basophil# 0.01 X10^3/uL; Basophil% 0.3 % (0-1); Eosinophil# 0.01 X10^3/uL; Eosinophils% 0.3 % (0-5); Hematocrit 33.4 % (37-47); Hemoglobin 10.9 g/dL (12.0-15.0); Lymphocyte # 1.59 X10^3/ul (0.83-4.51); Lymphocyte % 40.4 % (19-41); Mean Corp Hgb Conc 32.6 g/dL (32-36); Mean Corpuscular Hgb 31.1 pg (27.0-32.0); Mean Corpuscular Volume 95.2 fL (81-99); Mean Platelet Vol. 11.5 fl (6.2-12.0); Monocyte# 0.56 X10^3/uL; Monocyte% 14.2 % (0-10); NRBC Flagged by Analyzer 0 % (0-5); Neutrophil # 1.74 X10^3/uL (2.7-7.7); Platelet Count 183 K/mm3 (150-450); RBC Distribution Width CV 14.5 % (11.6-14.6); RBC Distribution Width SD 50.6 fl (35.1-43.9); Red Blood Count 3.51 M/mm3 (4.2-5.4); White Blood Count 3.9 K/mm3 (4.4-11.0)
[2024-05-28 12:08] LABS: ALB/GLOB Ratio 1.2 RATIO (0.9-2.4); AST(SGOT) 22 U/L (<=31); Alanine Aminotransfer ALT/SGPT 11 U/L (<=34); Albumin, Serum 3.7 g/dL (3.4-4.8); Alkaline Phosphatase 96 U/L (35-104); Anion Gap 10 (5-15); BUN 18 mg/dL (4-19); Calcium,Total 8.4 mg/dL (7.6-11.0); Carbon Dioxide 23.2 mmol/L (21.0-32.0); Chloride 108 mmol/L (98-108); Creatinine, Serum 0.88 mg/dL (0.70-1.20); EST Glomerular Filtration Rate 67 (>60); Globulin 3.1 g/dL (2.2-4.2); Glucose 97 mg/dL (70-99); Potassium 4.2 mmol/L (3.3-5.1); Protein, Total 6.7 g/dL (5.9-8.4); Sodium Level 142 mmol/L (133-145); Total Bilirubin 0.21 mg/dL (0.00-1.30); Vitamin B12 876 pg/mL (180-914); Vitamin D,25 Hydroxy 89.7 ng/mL (30-100)
== END ==
LOC: OLS.WHLTSB 05:00
PROVIDERS: PCP Clinical Nurse Specialist Adult Health; Visit Provider Internal Medicine
DX: I10 Essential (primary) hypertension (principal)
CPT/HCPCS: 36415; 80053; 82306; 82607; 84443; 85025

== ENCOUNTER → 2024-06-11 | Outpatient (CLI) | payer MEDICARE, OTHER, SELFPAY ==
--- NOTE | 2024-06-11 09:40 | RAD_ITS ---
PROCEDURE: Pelvis and bilateral hip radiographs, five views 06/11/2024 REASON FOR EXAM: Bilateral hip pain TECHNIQUE: Five views of the pelvis and bilateral hips were obtained. COMPARISON: None available FINDINGS: The bones are osteopenic. Moderate degenerative changes lower lumbar spine. Included portions of the pelvis and SI joints are intact. Proximal femurs intact with moderate degenerative changes in the hip joints. No acute fracture or dislocation of either hip. RAD/Hips B/L min 2 views w/ Pelvis IMPRESSION: Osteopenia. No acute bony abnormality of the pelvis/bilateral hips. Moderate degenerative changes in the hip joints. Moderate degenerative changes lower lumbar spine. Reading Location: [facility]
== END | disposition home or self-care (01) ==
LOC: RAD 09:31
PROVIDERS: PCP Internal Medicine; Referring Provider Anesthesiology; Visit Provider Anesthesiology
DX: M25.559 Pain in unspecified hip (principal)
CPT/HCPCS: 73521

== ENCOUNTER → 2024-06-13 | Outpatient (CLI) | payer MEDICARE, OTHER, SELFPAY ==
--- NOTE | 2024-06-13 15:11 | BD_ITS ---
PROCEDURE: DEXA BONE DENSITY STUDY 06/13/2024 REASON FOR EXAM: None provided TECHNIQUE: DXA scan of the lumbar spine and bilateral hips, using Hologic Horizon W. REFERENCE LINKS: ISCD Adult Positions COMPARISON: None. FINDINGS: LUMBAR SPINE: Bone mineral denisty, L1 and L3-L4: 0.850 g/cm??? T-score: -1.8 LEFT FEMORAL NECK: Bone mineral denisty: 0.542 g/cm??? T-score: -2.8 LEFT TOTAL HIP: Bone mineral denisty: 0.645 g/cm??? T-score: -2.4 RIGHT FEMORAL NECK: Bone mineral denisty: 0.509 g/cm??? T-score: -3.1 RIGHT TOTAL HIP: Bone mineral denisty: 0.665 g/cm??? T-score: -2.3 FRAX*: 10 Year Probability of Fracture: Major Osteoporotic Fracture(1): 34.0% Hip Fracture(2): 15.0% *FRAX is a trademark of the [employer]'s [place] for Metabolic Bone Disease, World Health Organization (WHO) Collaborating [place]. 1-Major Osteoporotic Fracture: Clinical Spine, Forearm, Hip or Shoulder. 2-The 10-year probability of fracture may be lower than reported if the patient has received treatment. The National Osteoporosis Foundation recommends that medical therapy be considered in postmenopausal women and men, age 50 and older, with a: * hip or vertebral fracture * T-score less than or equal to -2.5 in the spine or hip * T-score between -1.0 and -2.5 and FRAX equal to or less than 3 percent for hip fracture or equal to or less than 20 percent for major osteoporotic fracture. World Health Organization criteria for BMD interpretation classify patients as Normal (T-score at or above -1.0), Osteopenic (T-score between -1.0 and -2.5), or Osteoporotic (T-score at or below -2.5). BD/Dexa Bone Density Study IMPRESSION: 1. Osteoporosis. 2. No prior exams are available for comparison. 3. Additional description as above. Reading Location: [id number]
== END | disposition home or self-care (01) ==
PROVIDERS: PCP Internal Medicine; Referring Provider Internal Medicine; Visit Provider Internal Medicine
DX: M81.0 Age-related osteoporosis without current pathological fracture (principal)
CPT/HCPCS: 77080

== ENCOUNTER 2024-06-20 08:36 | Outpatient (CLI) | payer MEDICARE, OTHER, SELFPAY ==
[2024-06-20 08:53] VITALS: BP 160/52; PULSE 82; RESP 16; TEMP 36.3; O2SAT 98; BMI 26.3
[2024-06-20] MEDS: Zoledronic Acid 5 MG 100 ML 300 MG IV (09:10)
[2024-06-20] MEDS: 0.9% NaCl Peripheral Flush Adult IV (09:11)
[2024-06-20] MEDS: 0.9% NaCl IVPB Med Flush (100mL) 15 ML IV (09:11)
[2024-06-20 09:47] VITALS: BP 168/49; PULSE 57; RESP 16; TEMP 36.2; O2SAT 98
== END 2024-06-20 23:59 | disposition home or self-care (01) ==
LOC: MEDOUTP 08:37
PROVIDERS: PCP Internal Medicine; Referring Provider Nurse Practitioner Adult Health; Visit Provider Nurse Practitioner Adult Health
DX: M81.0 Age-related osteoporosis without current pathological fracture (principal)
CPT/HCPCS: 96365; A4216; J3489

== ENCOUNTER → 2024-07-11 04:00 | Outpatient (REF) | payer MEDICARE, OTHER, SELFPAY ==
[2024-07-11 08:27] LABS: Absolute Lymphocyte Count 1.67 X10^3/uL (0.83-4.51); Absolute Neutrophil Count 1.6 X10^3/uL (2.0-7.7); Basophil# 0.01 X10^3/uL; Basophil% 0.2 % (0-1); Eosinophil# 0.01 X10^3/uL; Eosinophils% 0.2 % (0-5); Hemoglobin 9.7 g/dL (12.0-15.0); Lymphocyte # 1.67 X10^3/ul (0.83-4.51); Lymphocyte % 41.4 % (19-41); Mean Corp Hgb Conc 32.3 g/dL (32-36); Mean Corpuscular Hgb 31.1 pg (27.0-32.0); Mean Corpuscular Volume 96.2 fL (81-99); Mean Platelet Vol. 10.8 fl (6.2-12.0); Monocyte% 17.4 % (0-10); NRBC Flagged by Analyzer 0 % (0-5); Neutrophil # 1.59 X10^3/uL (2.7-7.7); Neutrophil % 39.6 % (47-70); Platelet Count 174 K/mm3 (150-450); RBC Distribution Width CV 15.4 % (11.6-14.6); RBC Distribution Width SD 54.6 fl (35.1-43.9); Red Blood Count 3.12 M/mm3 (4.2-5.4)
[2024-07-11 08:40] LABS: ALB/GLOB Ratio 1.3 RATIO (0.9-2.4); AST(SGOT) 18 U/L (<=31); Alanine Aminotransfer ALT/SGPT 12 U/L (<=34); Albumin, Serum 3.4 g/dL (3.4-4.8); Alkaline Phosphatase 73 U/L (35-104); Anion Gap 8 (5-15); BUN 22 mg/dL (4-19); BUN/Creat Ratio 25.3 RATIO (10-20); Calcium,Total 9.2 mg/dL (7.6-11.0); Carbon Dioxide 23.1 mmol/L (21.0-32.0); Chloride 110 mmol/L (98-108); Creatinine, Serum 0.87 mg/dL (0.70-1.20); EST Glomerular Filtration Rate 68 (>60); Globulin 2.6 g/dL (2.2-4.2); Glucose 100 mg/dL (70-99); Potassium 4.3 mmol/L (3.3-5.1); Protein, Total 6.1 g/dL (5.9-8.4); Sodium Level 141 mmol/L (133-145); Total Bilirubin 0.23 mg/dL (0.00-1.30)
== END ==
LOC: OLS.WHLTSB 04:00
PROVIDERS: PCP Internal Medicine; Referring Provider Internal Medicine; Visit Provider Internal Medicine
DX: D64.89 Other specified anemias (principal)
CPT/HCPCS: 36415; 80053; 85025

== ENCOUNTER → 2024-07-24 | Outpatient (CLI) | payer MEDICARE, OTHER, SELFPAY ==
--- NOTE | 2024-07-24 14:06 | ECHOD_ITS ---
Reason For Study Reason For Study: OBSTRUCTIVE SLEEP APNEA Procedure This was a 2D Doppler, Color Flow transthoracic echocardiogram. Exam performed in department. Left Ventricle Normal LV size. The left ventricular ejection fraction is 60 %. Stage 1 diastolic dysfunction. No regional wall motion abnormalities noted. Right Ventricle Normal RV size. Normal systolic function. Atria Normal left atrium. Normal right atrium. Mitral Valve Normal mitral valve. Tricuspid Valve Normal tricuspid valve. Mild tricuspid valve insufficiency. Pulmonary artery systolic pressure is 23 mmHg. Aortic Valve Trisinus/trileaflet aortic valve. Mild focal aortic valve calcification. Pulmonic Valve Normal pulmonic valve. Great Vessels Normal aortic root. The pulmonary artery is normal size. Normal inferior vena cava. Pericardium/Pleural No pericardial effusion. MMode/2D Measurements & Calculations LVIDd: 4.0 cm IVSd: 1.1 cm LVOT diam: 2.1 cm LVIDs: 2.4 cm LVPWd: 1.1 cm LVOT area: 3.5 cm2 RVDd: 2.9 cm FS: 41.0 % asc Aorta Diam: 3.3 cm LAV(MOD-bp): 33.9 ml LVAd ap4: 22.7 cm2 LAV(MOD-bp) Indexed: 19.8 ml/m2 LVLd ap4: 7.3 cm LAV(MOD-sp2): 38.8 ml EDV(MOD-sp4): 59.4 ml LAV(MOD-sp4): 27.5 ml EDV(sp4-el): 60.1 ml LVAs ap4: 13.0 cm2 LVLs ap4: 6.5 cm ESV(MOD-sp4): 23.6 ml ESV(sp4-el): 22.3 ml EF(MOD-sp4): 60.2 % EF(sp4-el): 62.9 % LVAd ap2: 18.9 cm2 SV(MOD-sp4): 35.8 ml SV(MOD-sp2): 23.9 ml LVLd ap2: 7.0 cm SI(MOD-sp4): 20.9 ml/m2 SI(MOD-sp2): 14.0 ml/m2 EDV(MOD-sp2): 42.5 ml EDV(sp2-el): 43.3 ml LVAs ap2: 11.4 cm2 LVLs ap2: 6.0 cm ESV(MOD-sp2): 18.6 ml ESV(sp2-el): 18.2 ml EF(MOD-sp2): 56.3 % SV(sp4-el): 37.8 ml Ao sinus diam: 3.[address] Junction: 3.2 cm LA dimension(2D): 3.4 cm LA A4 area: 13.7 cm2 RA A4 area: 7.6 cm2 TAPSE: 1.7 cm Time Measurements MV dec time: 0.31 sec Doppler Measurements & Calculations MV E max yvan: 44.6 cm/sec Lat Peak E' Yvan: 6.0 cm/sec Med Peak E' Yvan: 6.9 cm/sec MV A max yvan: 89.1 cm/sec E/E' lat: 7.5 E/E' med: 6.4 MV E/A: 0.50 MV dec slope: 144.3 cm/sec2 Ao V2 max: 120.9 cm/sec LV V1 max: 87.3 cm/sec Ao max P.8 mmHg LV V1 max P.0 mmHg Ao V2 mean: 88.5 cm/sec LV V1 mean P.9 mmHg Ao mean P.4 mmHg LV V1 mean: 64.3 cm/sec Ao V2 VTI: 26.8 cm LV V1 VTI: 19.7 cm AV (velocity ratio): 0.73 FABIOLA(I,D): 2.5 cm2 FABIOLA(V,D): 2.5 cm2 SV(LVOT): 68.3 ml PA V2 max: 83.2 cm/sec TR max yvan: 211.1 cm/sec TR max P.8 mmHg ECHO/Echo Complete Interpretation Summary Normal LV size. The left ventricular ejection fraction is 60 %. Stage 1 diastolic dysfunction. Mild tricuspid valve insufficiency. Ordering Physician: Sarath De V Referring Physician: Jackson Wilkerson Performed By: Loren Mark RDCS
== END | disposition home or self-care (01) ==
PROVIDERS: PCP Internal Medicine; Referring Provider Internal Medicine Pulmonary Disease; Visit Provider Internal Medicine Pulmonary Disease
DX: I27.20 Pulmonary hypertension, unspecified (principal); G47.33 Obstructive sleep apnea (adult) (pediatric)
CPT/HCPCS: 93306

== ENCOUNTER → 2024-10-04 | Outpatient (CLI) | payer MEDICARE, OTHER, SELFPAY ==
[2024-10-04 13:41] LABS: Hematocrit 29.9 % (37-47); Hemoglobin 9.7 g/dL (12.0-15.0); Immature Granulocytes Count 0.030 X10^3/uL (0.0-0.0); Mean Corp Hgb Conc 32.4 g/dL (32-36); Mean Corpuscular Volume 95.8 fL (81-99); Mean Platelet Vol. 11.7 fl (6.2-12.0); NRBC Flagged by Analyzer 0 % (0-5); Platelet Count 195 K/mm3 (150-450); RBC Distribution Width CV 14.2 % (11.6-14.6); RBC Distribution Width SD 49.9 fl (35.1-43.9); Red Blood Count 3.12 M/mm3 (4.2-5.4); White Blood Count 3.9 K/mm3 (4.4-11.0)
[2024-10-04 14:35] LABS: Anion Gap 10 (5-15); BUN 24 mg/dL (4-19); BUN/Creat Ratio 26.9 RATIO (10-20); Calcium,Total 9.5 mg/dL (7.6-11.0); Carbon Dioxide 23.4 mmol/L (21.0-32.0); Chloride 107 mmol/L (98-108); Glucose 87 mg/dL (70-99); Potassium 4.7 mmol/L (3.3-5.1); Pro- Brain NATRIURETIC PEPTIDE 504 pg/mL (<=1800)
== END | disposition home or self-care (01) ==
LOC: LAB 11:39
PROVIDERS: PCP Clinical Nurse Specialist Adult Health; Referring Provider Nurse Practitioner Gerontology; Visit Provider Nurse Practitioner Gerontology
DX: R06.02 Shortness of breath (principal); R53.83 Other fatigue
CPT/HCPCS: 36415; 80048; 83880; 84443; 85025